=== PATIENT | male | born 1930 | race Caucasian/White ===

== ENCOUNTER 2016-12-19 19:24 | Inpatient (IN) ==
[2016-12-19] MEDS ORDERED: ASPIRIN PO STA (19:53)
[2016-12-19 20:12] LABS: BASO% 0.1 % (0.0-0.8); HEMATOCRIT 46.3 % (42.0-52.0); HEMOGLOBIN 15.5 g/dL (14.0-18.0); IMM GRAN# 0.02 X1000 (0.0-0.04); IMM GRAN% 0.2 % (0.0-0.5); LYMPH% 6.8 % (20.5-51.1); MANUAL DIFF NEEDED? NO; MCH 33.1 PG (27-31); MCHC 33.5 g/dL (33-37); MCV 98.9 FL (81-99); MONO# 0.62 X1000 (0.11-0.59); MPV 10.3 FL (7.4-10.4); NEUT% 85.9 % (42.2-75.2); PLT 134 X1000 (130-400); RBC 4.68 XMIL (4.7-6.1)
[2016-12-19 20:20] LABS: INR 1.14; PROTIME 12.1 Seconds (9.2-11.7); PTT 26.3 Seconds (22.0-36.0)
--- NOTE | 2016-12-19 20:27 | Diag Imaging Result Doc PS360 ---
EXAM: CHEST-2 VIEWS HISTORY: CP TECHNIQUE: AP and lateral chest COMMENT: There is COPD. There has been coronary artery bypass. There is no evidence of acute pulmonary disease in the appearance of the chest has not changed significantly since 06/07/2015. IMPRESSION: COPD. Electronically signed by Easton Da Silva 12/19/2016 8:25 PM
[2016-12-19 20:28] LABS: ALBUMIN 4.5 g/dL (3.5-5.0); CALCIUM 9.5 mg/dL (8.8-10.2); MAGNESIUM 2.4 mg/dL (1.5-2.7); POTASSIUM 4.4 mmol/L (3.5-5.1); TOTAL BILIRUBIN 0.97 mg/dL (0.20-1.00); TOTAL PROTEIN 7.8 g/dL (6.3-8.3)
[2016-12-19 20:47] LABS: CK INDEX 1.1 (0.0-2.5); CK-MB 14.71 ng/mL (0.0-5.0)
[2016-12-19] MEDS ORDERED: NS 1,000 ML IV ONE (21:07)
--- NOTE | 2016-12-19 21:07 | ED EKG INTERP ---
This chart was entered by Cristal Mejias Scribe, acting as scribe for Aníbal Morocho MD. EKG Interpretation - EKG Time of EKG reading by physician:: 19:48 EKG Read and Signed by:: Aníbal Morocho Rate: 61 Rhythm: NSR Comments: Abnormal ECG Attestation - Physician/ ELLIOTT Attestation Patient care was provided by Advanced Practice Provider:: No The physician spent face to face time with patient:: Yes Advanced Practice Provider documentation review:: Supervising physician onsite and consulted in the evaluation and care of this patient. The physician did have a face to face encounter with the patient. This chart was documented by the indicated scribe, (Cristal Mejias Scribe) and accurately reflects the services I performed and decisions made by me, Aníbal Morocho MD, as attested by the provider's signature.
--- NOTE | 2016-12-19 21:19 | Diag Imaging Result Doc PS360 ---
EXAM: CT HEAD W/O CONTRAST HISTORY: fall TECHNIQUE: CT of the head without contrast COMMENT: There is no evidence of mass effect, bleed, abnormal extra-axial fluid collection, or hydrocephalus. Compared to 02/13/2011 the appearance of the brain has not changed significantly. The visualized paranasal sinuses are clear. There is no evidence of acute bony abnormality. There is persistence the metopic suture. IMPRESSION: No evidence of acute intracranial disease. Electronically signed by Easton Da Silva 12/19/2016 9:17 PM
--- NOTE | 2016-12-19 21:56 | PROVIDER DOCUMENTATION ---
This chart was entered by Cristal Mejias Scribe, acting as scribe for Aníbal Morocho MD. HPI-Syncope/Dizziness - General Chief Complaint: Fall Stated Complaint: DIZZY/FALL Time Seen by Provider: 12/19/16 20:59 Source: patient Allergies/Adverse Reactions: Patient Allergies Allergy/AdvReac Type Severity Reaction Status Date / Time No Known Allergies Allergy Verified 12/19/16 20:49 Home Medications: Home Medication List Medication Instructions Recorded Confirmed Last Taken Type Apixaban [Eliquis] 2.5 mg PO BID #60 tablet 06/10/15 Unknown Rx - History of Present Illness-Syncope/Dizzy Nature of Presenting Problem: 86 Y/O M presents to ED with Fall. Pt has a hx of syncopal episodes as told by family. Pt was found by daughter this evening around 6pm. Pt was laying flat on back in bathroom, went to use the bathroom and was cleaning up states fell around 10am and was unable to get up. Pt daughter states that bathroom is handicap accessible, pt lives alone in an apt across from daughter. Daughter checks on pt daily. Skin tears noted to bilateral elbows. Pt states he is not in pain, states mild headache. Pt is thin, alert and able to answer questions. Family states confusion recently not out the ordinary. Prior Episodes: reports: recent history Onset/Duration: reports: this morning Position/Activity at time of episode: reports: standing Symptoms prior to episode: reports: none Context: reports: other (fell) Loss of Consciousness: no loss of consciousness Location of injury. (If syncope resulted in an injury.): reports: [facility] Current Symptoms: reports: headache (mild) Recently Seen Here or By Another Healthcare Provider: No Review of Systems - Adult - REVIEW OF SYSTEMS - ADULT Constitutional: denies: chills, fever Eyes: reports: no symptoms reported Ears, Nose, Mouth & Throat: reports: no symptoms reported Cardiovascular: reports: no symptoms reported Respiratory: denies: cough, shortness of breath Gastrointestinal: denies: abdominal pain, diarrhea, nausea, vomiting Genitourinary: reports: no symptoms reported Musculoskeletal: reports: no symptoms reported Integumentary: reports: no symptoms reported Neurological: reports: headache/migraines (mild), syncope Psychiatric: reports: no symptoms reported Endocrine: reports: no symptoms reported Hematologic/Lymphatic: reports: no symptoms reported Allergic/Immunologic: reports: no symptoms reported All Other Systems: Reviewed and Negative Past History - Adult - PAST MEDICAL HISTORY-ADULT Review of Records: reports: Old Records Reviewed, Nursing Assessment Review, Medications Reviewed, Social history reviewed & non-contributory. Cardiovascular: reports: CAD, hyperlipidemia Musculoskeletal: reports: denies history Neurological: reports: dementia - PRIOR SURGERIES/PROCEDURES Surgical/Procedure History: reports: appendectomy, CABG, other (ear implants) - IMMUNIZATION STATUS Childhood Immunizations: See Nurse Assessment Flu Vaccine: See Nurse Assessment - SOCIAL HISTORY Smoking: non-smoker Substance Use: none/never Alcohol Use Frequency: never Living Situation: alone Physical Exam-General - CONSTITUTIONAL General Appearance: alert, no apparent distress, thin - EYES Eyes: pink conjunctivae - HEAD, EARS, NOSE, MOUTH & THROAT HENMT: moist mucous membranes, TMs normal, pharynx normal - NECK Neck: full range of motion, supple - RESPIRATORY Respiratory: lungs clear, normal breath sounds - CARDIOVASCULAR Cardiovascular: bradycardia - GASTROINTESTINAL (ABDOMEN) Abdominal Exam: soft - LYMPHATIC Lymphatic: no adenopathy - MUSCULOSKELETAL Back Exam: other (redness noted to back) Extremity: other (abrasians to bilateral elbows) - SKIN Integumentary: normal turgor - NEUROLOGIC Neurologic: grossly normal, no motor/sensory deficits. negative: facial droop, focal weakness, motor weakness, sensory deficit - PSYCHIATRIC Psych/Mental Status: normal mood/affect, normal thought content, normal thought process, oriented x 3 Progress - PLAN OF CARE/RESULTS Progress/Plan/Lab Results: Vital Signs - 8 hr 12/19/16 19:48 Temperature 97.3 F L Pulse Rate 71 Respiratory Rate 20 Blood Pressure 129/79 O2 Sat by Pulse Oximetry 99 Laboratory Results - last 24 hr 12/19/16 12/19/16 12/19/16 19:41 19:57 19:57 WBC 8.84 RBC 4.68 L Hgb 15.5 Hct 46.3 MCV 98.9 MCH 33.1 H MCHC 33.5 RDW Std Deviation 12.9 Plt Count 134 MPV 10.3 Immature Gran % (Auto) 0.2 Neut % (Auto) 85.9 H Lymph % (Auto) 6.8 L [place] % (Auto) 7.0 Eos % (Auto) 0.0 Baso % (Auto) 0.1 Immature Gran # (Auto) 0.02 Neut # (Auto) 7.59 H Lymph # (Auto) 0.60 L [place] # (Auto) 0.62 H Eos # (Auto) 0.00 Baso # (Auto) 0.01 PT INR PTT (Actin FS) D-Dimer Sodium 144 Potassium 4.4 Chloride 101 Carbon Dioxide 28 Anion Gap 15 BUN 39 H Creatinine 1.6 H Estimated GFR/1.73 m2 41 BUN/Creatinine Ratio 24 Glucose 103 POC Glucose 99 Calculated Osmolality 296 Calcium 9.5 Magnesium 2.4 Total Bilirubin 0.97 AST 38 H ALT 19 Alkaline Phosphatase 51 Creatine Kinase 1331 H Creatine Kinase Index 1.1 CK-MB (CK-2) 14.71 H Troponin T Fld-G-Xicrdlwgmwk Pept Total Protein 7.8 Albumin 4.5 Globulin 3.3 Albumin/Globulin Ratio 1.4 12/19/16 12/19/16 12/19/16 19:57 19:57 19:57 WBC RBC Hgb Hct MCV MCH MCHC RDW Std Deviation Plt Count MPV Immature Gran % (Auto) Neut % (Auto) Lymph % (Auto) [place] % (Auto) Eos % (Auto) Baso % (Auto) Immature Gran # (Auto) Neut # (Auto) Lymph # (Auto) [place] # (Auto) Eos # (Auto) Baso # (Auto) PT 12.1 H INR 1.14 PTT (Actin FS) 26.3 D-Dimer 1.34 H Sodium Potassium Chloride Carbon Dioxide Anion Gap BUN Creatinine Estimated GFR/1.73 m2 BUN/Creatinine Ratio Glucose POC Glucose Calculated Osmolality Calcium Magnesium Total Bilirubin AST ALT Alkaline Phosphatase Creatine Kinase Creatine Kinase Index CK-MB (CK-2) Troponin T Bbc-D-Qifqssyzwdu Pept 641 H Total Protein Albumin Globulin Albumin/Globulin Ratio 12/19/16 19:57 WBC RBC Hgb Hct MCV MCH MCHC RDW Std Deviation Plt Count MPV Immature Gran % (Auto) Neut % (Auto) Lymph % (Auto) [place] % (Auto) Eos % (Auto) Baso % (Auto) Immature Gran # (Auto) Neut # (Auto) Lymph # (Auto) [place] # (Auto) Eos # (Auto) Baso # (Auto) PT INR PTT (Actin FS) D-Dimer Sodium Potassium Chloride Carbon Dioxide Anion Gap BUN Creatinine Estimated GFR/1.73 m2 BUN/Creatinine Ratio Glucose POC Glucose Calculated Osmolality Calcium Magnesium Total Bilirubin AST ALT Alkaline Phosphatase Creatine Kinase Creatine Kinase Index CK-MB (CK-2) Troponin T 0.015 Csb-W-Fikrtzyvgaa Pept Total Protein Albumin Globulin Albumin/Globulin Ratio Orders Category Date Time Status Cardiac Monitoring DIRECTED Care 12/19/16 19:54 Active Oxygen Therapy- ED Nursing DIRECTED Care 12/19/16 19:54 Hold Saline Loc NOW Care 12/19/16 19:54 Active CHEST-2 VIEWS [RAD] Stat Exams 12/19/16 19:[address] HEAD W/O CONTRAST [CT] Stat Exams 12/19/16 21:00 Completed CBC WITH ELECTRONIC DIFF [HEME] Stat Lab 12/19/16 19:57 Completed CK PROFILE [SP CHEM] Stat Lab 12/19/16 19:57 Completed COMPREHENSIVE METABOLIC PANEL [CHEM] Stat Lab 12/19/16 19:57 Completed D-DIMER [CHEM] Stat Lab 12/19/16 19:57 Completed MAGNESIUM [CHEM] Stat Lab 12/19/16 19:57 Completed PRO B-NATRIURETIC PEPTIDE Stat Lab 12/19/16 19:57 Completed PROTIME WITH INR [COAG] Stat Lab 12/19/16 19:57 Completed PTT [COAG] Stat Lab 12/19/16 19:57 Completed TROPONIN T Stat Lab 12/19/16 19:57 Completed 0.9% Sodium Chloride Inj [Ns] 1,000 ml Med 12/19/16 21:07 Active IV 999 mls/hr Aspirin Med 12/19/16 19:53 Discontinued 325 mg PO STAT STA EKG [EKG] Stat Ther 12/19/16 19:54 Ordered Result Diagrams: 12/19/16 19:57 12/19/16 19:57 - XRAY 1 XRAY Study: Chest Impression: Abnormal XRAY Interpretation: COPD - CT/MRI 1 CT Study: Head Impression: Normal CT Results: No evidence of acute intracrancial disease - CONSULTS/PCP/HOSPITALIST Notification #1 *Consult/PCP/Hospitalist*: Time Discussed: 21:50 Reason/Comments: Admittance Consult Disposition: Admit (Admit Accepted) Departure - Departure Date of Disposition Decision: 12/19/16 Time of Disposition Decision: 21:55 DIAGNOSIS: Bradycardia Dementia Qualifiers: Dementia type: unspecified type Dementia behavioral disturbance: without behavioral disturbance Qualified Code(s): F03.90 - Unspecified dementia without behavioral disturbance Syncope Qualifiers: Syncope type: unspecified Qualified Code(s): R55 - Syncope and collapse Disposition: ADMITTED INPATIENT 09 Certified Medical Emergency: Emergent Condition: Fair Referrals and Follow-Ups: Glenn Blanco [Primary Care Provider] - - Critical Care Note This patient required my direct & personal management of CC.: No Attestation - Physician/ ELLIOTT Attestation Patient care was provided by Advanced Practice Provider:: No The physician spent face to face time with patient:: Yes Advanced Practice Provider documentation review:: Supervising physician onsite and consulted in the evaluation and care of this patient. The physician did have a face to face encounter with the patient. This chart was documented by the indicated scribe, (Cristal Mejias Scribe) and accurately reflects the services I performed and decisions made by me, Aníbal Morocho MD, as attested by the provider's signature.
[2016-12-19] MEDS ORDERED: TYLENOL PO ONE (22:00)
--- NOTE | 2016-12-20 00:41 | HISTORY AND PHYSICAL ---
CHIEF COMPLAINT: Fall, dizziness. HISTORY OF PRESENT ILLNESS: This is an 86-year-old male with CAD, status post CABG, who has dementia. It is kind of unclear exactly how severe it is, but I think it is fairly significant. He was found today by his daughter, who is his primary caregiver, around 6 p.m. He could not get back up. He fell around 10 a.m. He denies any prodrome preceding symptoms. No chest pain, palpitations, but I do not get a clear sense he really understands or remembers the event. I think his dementia may be at least moderate. Per the daughter, he has been getting weaker and weaker over the last several months. He has also lost a significant amount await, at least above 10 pounds in the last 6 months and possibly more. He does not eat and drink very well unless he is at family events but he does not really spontaneously eat and drink very well. No other monica symptoms. He has had a CABG but I want to say it is fairly remote. He does not see a director erp anymore. When he was here in May last year, I think he had atrial fibrillation with rapid ventricular response. He actually was tachycardic. This time, he is bradycardic and he developed it looks like A-flutter with a variable block. This time he is actually fairly slow and, again, he is very dizzy when he gets up and looks around. The patient was up placed in observation for symptomatic bradycardia. PAST MEDICAL HISTORY: 1. CAD, status post CABG. 2. Hyperlipidemia. 3. Bladder incontinence issue. 4. Dementia, not otherwise specified. PAST SURGICAL HISTORY: 1. He had CABG, again it was 20 years ago. 2. Appendectomy. 3. Cataract repair. 4. Ear implants. SOCIAL HISTORY: No current tobacco, and I think it has been a long time since last tobacco use. No alcohol. He lives with family. Daughter is his primary caregiver. He is retired from the or from the [employer]. ALLERGIES: Reports no known drug allergies. MEDICATIONS: He is just on oxybutynin 10 daily and Zocor 20 daily. FAMILY HISTORY: Mother, brother, father all had CAD but not at early ages. No other arrhythmias. No cancer. REVIEW OF SYSTEMS: Otherwise negative times a 10 point review of systems. All other systems reviewed. PHYSICAL EXAMINATION: VITAL SIGNS: Blood pressure 129/79, heart rate of 71 is recorded but he dipped down into the 40s while I was in the room doing the examination, respiratory rate of 20, temperature 97.3 degrees, 99% on room air. GENERAL: He is a thin, I would say even cachectic male in no acute distress. HEAD: Normocephalic, atraumatic. EYES: Pupils equal, round, reactive to light. Extraocular movements were intact. EAR/NOSE/THROAT: He had moist mucous membranes. NECK: Supple. CARDIOVASCULAR: Regular rate and rhythm. No murmurs, gallops, or rubs. PULMONARY: Exam with bilateral breath sounds. Clear to auscultation. GASTROINTESTINAL: Soft, nontender, nondistended. Bowel sounds are positive. EXTREMITIES: No clubbing or cyanosis. LYMPHATIC: No peripheral edema. NEUROLOGICAL: Exam was nonfocal. SKIN: He was cachectic. He had bitemporal wasting. He had chronic venous changes noted on his lower extremities. LABORATORY DATA: Creatinine is 1.6 which is up from baseline. In May it was around 1.1, 1.3. CPK of 1331, MB is elevated, index is low, troponin was normal. ProBNP was mildly elevated. Hemoglobin and hematocrit 15 and 46. Coagulation was normal. D-dimer was elevated at 1.34. PROBLEM LIST: This is an 86-year-old male presenting with symptomatic bradycardia which looks to be a primary arrhythmia because I do not think he is on any medications that could cause issues. Oxybutynin typically looks like causes tachycardia. 1. Bradycardia. He may have a primary bradycardia or a sick sinus syndrome since he had an A- flutter history. We will of admit him for observation or place him in observation. Get Cardiology consult. Do serial cardiac enzymes. Monitor on telemetry. Get echocardiogram and follow. I have discussed with family about the possibility of a pacemaker if he does not improve and he has symptomatic bradycardia and they are considering evaluating for that. 2. Acute kidney injury. We will continue gentle hydration. Obtain ultrasound, check urine electrolytes and repeat chemistries. 3. Cachexia, weight loss. May be related to progressive dementia. We will do a basic workup including abdominal ultrasound. 4. Elevated D-dimer. Patient was on the floor for an extended period of time. I think that is what is related to it. We will progress with V/Q scan to evaluate for PE. I think that is unlikely. I am not quite sure why a D-dimer was analyzed. He does not have chest pain but I guess he did have syncope. We will need to continue to follow closely. Again, I think without hypoxia that it is very unlikely to be any process involving a pulmonary embolus. I think that is a low risk process. DISPOSITION: Pending workup. We will get PT to evaluate and follow from there. cc: Saad Cespedes MD
[2016-12-20] MEDS ORDERED: ZOFRAN IV PRN (01:46)
[2016-12-20] MEDS ORDERED: NS 1,000 ML IV ONE (01:46)
[2016-12-20] MEDS ORDERED: TYLENOL PO PRN (01:46)
[2016-12-20 03:07] LABS: CK INDEX 0.8 (0.0-2.5); CK-MB 13.62 ng/mL (0.0-5.0)
[2016-12-20 06:20] LABS: MANUAL DIFF NEEDED? NO
--- NOTE | 2016-12-20 06:25 | EKG Report ---
Test Performed on : 12/19/2016 7:48:06 PM Test Reason : Chest Pain Blood Pressure : / mmHG Vent. Rate : 061 BPM Atrial Rate : 061 BPM P-R Int : 140 ms QRS Dur : 080 ms QT Int : 440 ms P-R-T Axes : 090 066 040 degrees QTc Int : 442 ms Normal sinus rhythm. Septal infarct , age undetermined Abnormal ECG When compared with ECG of 09-JUN-2015 12:17, CO interval has decreased Septal infarct is now present Nonspecific T wave abnormality now evident in Inferior leads Nonspecific T wave abnormality now evident in Anterior leads Unconfirmed Result
[2016-12-20 06:26] LABS: BASO% 0.2 % (0.0-0.8); HEMATOCRIT 39.8 % (42.0-52.0); HEMOGLOBIN 12.8 g/dL (14.0-18.0); IMM GRAN# 0.01 X1000 (0.0-0.04); IMM GRAN% 0.2 % (0.0-0.5); LYMPH# 0.96 X1000 (1.2-3.4); LYMPH% 16.3 % (20.5-51.1); MCH 32.1 PG (27-31); MCHC 32.2 g/dL (33-37); MCV 99.7 FL (81-99); MONO# 0.59 X1000 (0.11-0.59); MPV 10.5 FL (7.4-10.4); NEUT% 73.3 % (42.2-75.2); PLT 119 X1000 (130-400); RBC 3.99 XMIL (4.7-6.1)
[2016-12-20 06:46] LABS: ALBUMIN 3.5 g/dL (3.5-5.0); CALCIUM 8.4 mg/dL (8.8-10.2); POTASSIUM 4.3 mmol/L (3.5-5.1); TOTAL BILIRUBIN 0.7 mg/dL (0.20-1.00); TOTAL PROTEIN 5.6 g/dL (6.3-8.3)
[2016-12-20 07:19] LABS: CK INDEX 0.8 (0.0-2.5); CK-MB 13.05 ng/mL (0.0-5.0)
[2016-12-20 11:11] LABS: CK INDEX 0.7 (0.0-2.5); CK-MB 12.66 ng/mL (0.0-5.0)
--- NOTE | 2016-12-20 12:23 | Diag Imaging Result Doc PS360 ---
EXAM: LUNG SCAN / VQ HISTORY: elevated d dimer, syncope TECHNIQUE: Ventilation/perfusion lung scan; 5.3 mCi of technetium 99m MAA for perfusion, the 26.5 mCi of technetium 99m DTPA aerosol for the ventilation portion. COMMENT: There is no evidence of ventilation/perfusion mismatch. There is an apparent matched defect laterally in the left lung, probably in the upper lobe. This may be due to COPD. This would be consistent with the appearance on the chest radiograph of 12/19/2016. IMPRESSION: Low probability for pulmonary embolus. Electronically signed by Easton Da Silva 12/20/2016 12:20 PM
--- NOTE | 2016-12-20 12:42 | CONSULTATION ---
DATE OF CONSULTATION: 12/20/2016 INDICATION: Fall, bradycardia. HISTORY OF PRESENT ILLNESS: Mr. Zuniga is an 86-year-old male with a history of coronary bypass. He apparently has a significant level of dementia and suffered a fall. He lives close to family, and they found him apparently in the bathroom. It is unclear exactly the etiology of his fall. The patient has a significant level of dementia and is not able to add much as far as the history. He had some issues with bradycardia overnight with heart rates quite often in the 30s to 50s. I did not see any telemetry evidence of significant high degree AV block. Presently, the patient is not complaining of any complaints such as chest pain or shortness of breath. PAST MEDICAL HISTORY: 1. Significant for coronary disease with history of bypass a number of years ago. 2. Hyperlipidemia. 3. Incontinence. 4. A significant level of dementia. SOCIAL HISTORY: No current tobacco. No alcohol. He lives in an apartment very close to his family. FAMILY HISTORY: Mother, brother, and father all had coronary artery disease but apparently not early. REVIEW OF SYSTEMS: A 10-system review of systems is negative; however, the patient is a very poor historian. PHYSICAL EXAMINATION: He is afebrile. His heart rates have been anywhere from the 30s to the 70s. His blood pressure is 101/70.Generally: He is in no acute distress. HEENT: Oropharynx is moist. Poor dentition. Eye examination is pink conjunctivae. White sclerae. Neck: Examination shows no obvious thyromegaly or thyroid tenderness. Cardiovascular: He is in a regular rhythm. He has a bradycardic rate. He has no obvious murmurs. He has no S3. No lower extremity edema. Chest: Clear bilaterally. No increased work of breathing. Abdomen: Soft, nontender, nondistended. He has no obvious organomegaly. Skin Exam: Warm and dry throughout any rashes. Neurological: He seems to be moving all extremities well. No obvious lateralizing deficits. PERTINENT DATA: His EKG shows sinus rhythm. Rate noted to be 61 beats per minute. No signs of high degree AV block. His telemetry overnight shows heart rates in the 40s. These are all supply manager hours such as 1:42 a.m. and 3:06 a.m. His laboratory data shows a white count of 5.9, hematocrit 39.8, platelet count of 119,000. His sodium is 143, potassium 4.3, BUN 32, creatinine 1.2; on admission, it was 39 and 1.6. His CK was 1331 on arrival with a CK of 1893. His MB fraction was 12.6 with an index of 0.7. Cardiac enzymes negative, and this may indicate a small amount rhabdo. His proBNP is 641. His head CT was reviewed and showed no evidence of any acute disease. His chest x-ray showed evidence for COPD. ASSESSMENT: 1. Relative bradycardia. 2. Fall. PLAN: The patient has had a relative bradycardia that seems to be occurring most often when he is laying down at night sleeping or calm in bed. Presently, there is no clear indication that his fall was secondary to bradycardia or any clear indication that he has symptomatic bradycardia. I would recommend monitoring him for another 24 hours. Echocardiogram is currently pending. If this is an unremarkable monitoring, then he may be discharged home with a home heart rate monitor. Considering his advanced level of dementia, I have urged the family to have discussions regarding goals of care with him and whether they would even consider an invasive treatment such as a pacemaker. He is not on any atrioventricular shyam blocking agents. cc: Nish Mckeon MD
--- NOTE | 2016-12-20 13:48 | Diag Imaging Result Doc PS360 ---
EXAM: US ABDOMEN-COMPLETE HISTORY: aj TECHNIQUE: Abdominal ultrasound COMMENT: There is a hypoechoic lesion present in the midline sternotomy scar with shadowing. This may represent inflammatory reaction to a sternotomy wire. There are number of fairly prominent sternotomy wires seen anterior to the sternum on the CT examination of 06/07/2015. The visualized portions of the aorta and inferior vena cava are within normal limits. The pancreas is slightly inhomogeneous without discrete abnormality. The liver is unremarkable in appearance. There is antegrade flow in the portal vein. The common bile duct measures 4 mm. The gallbladder is clear and nontender. The spleen is not enlarged. The kidneys are without evidence of hydronephrosis or mass. No abnormal fluid collections are present. IMPRESSION: Subcutaneous nodule in the area of the sternotomy as described. Inhomogeneity of the pancreas may indicate pancreatitis, however this is nonspecific. Advise correlation with laboratory findings and history. Electronically signed by Easton Da Silva 12/20/2016 1:46 PM
--- NOTE | 2016-12-20 18:49 | ECHO REPORT ---
ORDER DATE: 12/20/2016 INTERPRETING PHYSICIAN: Dr. Weber REQUESTING PHYSICIAN: Dr. Cespedes CLINICAL INDICATIONS: Bradycardia in an 86-year-old male. M-MODE MEASUREMENTS: Right ventricle: 2.7 cm. Left ventricle end diastole: 4.1 cm. Left ventricle end systole: 3.3 cm. Posterior wall: 0.8 cm. Interventricular septum: 0.8 cm. Left atrium: 3.9 cm. Aortic root: 3.6 cm. SUMMARY OF 2-DIMENSIONAL IMAGING: The left ventricular function appears to be normal. Ejection fraction estimated at 63%. His ventricular volumes are normal. There is no wall motion abnormality. The right ventricle appears to be normal. The left atrium is probably mildly enlarged. The aortic valve shows a mild degree of thickening of the cusps. Color flow mapping reveals a mild degree of regurgitation. There is no aortic stenosis. The mitral valve shows some thickening especially of the posterior leaflet with a very trivial degree of prolapse. Color flow mapping shows a very mild degree of regurgitation. Pulse wave Doppler of mitral inflow shows "normal" E/A ratio. Tissue Doppler of septal and lateral mitral annulus averages 7 cm per second. Diastolic function appears to be normal based on this Doppler pattern. The tricuspid valve shows a [id number]-[id number]-mhtuxaia degree of regurgitation. The inferior vena cava was not well visualized. Pulmonary pressure is probably somewhere in the range of 25-30 mmHg. The pulmonic valve appears to be grossly normal. There is no pericardial effusion, masses or thrombus. IMPRESSION: In summary, this study shows: 1. Normal left ventricular systolic function. 2. Mild degree of tricuspid regurgitation with probably normal pulmonary pressure in the order of 25-30 mmHg. 3. Redundant posterior leaflet of mitral valve, probably mild degree of mitral valve prolapse and mild degree of mitral regurgitation. 4. No diastolic function. The patient was in sinus bradycardia during this study. 5. Mild degree of aortic regurgitation was noted. Clinical correlation recommended. cc: MD Saad Eugene MD
[2016-12-20] MEDS: NS 1,000 ML IV SCH (20:00)
--- NOTE | 2016-12-20 20:15 | PROGRESS NOTE ---
DATE: 12/20/2016 Patient was seen and examined. Still having bradycardia. He is awake. He is in no distress. We will ask cardiology for involvement. cc: Parvez Louis MD
[2016-12-20 20:16] LABS: UR CREAT RANDOM 132.6 mg/dL (14-26); UR PROT RANDOM 12.8 mg/dL
[2016-12-20 20:17] LABS: BILIRUBIN URINE NEGATIVE (NEGATIVE); BLOOD URINE 4+ (NEGATIVE); CLARITY CLEAR (CLEAR); COLOR YELLOW; LEUKOCYTES URINE NEGATIVE (NEGATIVE); NITRITE URINE NEGATIVE (NEGATIVE); PROTEIN URINE TRACE mg/dL (NEGATIVE); UROBILINOGEN URINE NORMAL
[2016-12-20 20:21] LABS: URINE CAST NONE SEEN /LPF; URINE CRYSTAL URIC ACID PRESENT /HPF; URINE CULTURE PL NEEDED? YES; URINE EPITHELIAL CELLS <10 /HPF (<10); URINE SOURCE CLEAN CATCH; URINE WBC <10 /HPF (<10)
[2016-12-20] MEDS: ZOCOR PO SCH (20:49)
[2016-12-20] MEDS: SODIUM BICARBONATE PO SCH (20:50)
[2016-12-21] MEDS: NS 1,000 ML IV SCH ×2 (05:14→15:02)
[2016-12-21 06:32] LABS: HEMATOCRIT 38.1 % (42.0-52.0); HEMOGLOBIN 12.3 g/dL (14.0-18.0); MCH 32.5 PG (27-31); MCHC 32.3 g/dL (33-37); MCV 100.8 FL (81-99); RBC 3.78 XMIL (4.7-6.1)
[2016-12-21 07:04] LABS: AGAP 5; ALBUMIN 2.8 g/dL (3.5-5.0); ALKALINE PHOSPHATASE 41 U/L (32-122); BUN 27 mg/dL (8-22); CALCIUM 7.7 mg/dL (8.8-10.2); CHLORIDE 108 mmol/L (98-107); COSMO 286; GOT 43 U/L (10-34); GPT 20 U/L (10-44); POTASSIUM 3.8 mmol/L (3.5-5.1); SODIUM 141 mmol/L (136-145); TCO2 29 mmol/L (25-35)
[2016-12-21] MEDS: SODIUM BICARBONATE PO SCH ×2 (10:33→22:03)
[2016-12-21] MEDS: ZOCOR PO SCH (22:03)
[2016-12-22] MEDS: NS 1,000 ML IV SCH (01:05)
[2016-12-22] MEDS: SODIUM BICARBONATE PO SCH ×2 (09:16→22:02)
--- NOTE | 2016-12-22 09:26 | PROGRESS NOTE ---
DATE: 12/21/2016 SUBJECTIVE: Patient without any new complaints. OBJECTIVE: Vital Signs: Reviewed. He is still bradycardic with heart rates in the 40s, occasionally in the low 50s. Respiratory 20. General: Patient is awake, alert. Frail appearing, elderly male who is lying in the bed. HEENT: Normocephalic, atraumatic. PERRL. Neck: Supple. Cardiovascular: Bradycardic. Chest: Clear. Abdomen: Soft. ASSESSMENT: 1. Sinus bradycardia. 2. Adult failure to thrive. 3. Frequent falls. PLAN: We will continue patient in the hospital and observe over the weekend on the floor. We will get physical therapy. Patient certainly may require a pacemaker if his bradycardia is negatively affecting him. At this point, not sure if that's the case, will continue. cc: Parvez Louis MD
[2016-12-22 10:08] LABS: HEMATOCRIT 46.7 % (42.0-52.0); HEMOGLOBIN 15.4 g/dL (14.0-18.0); MCH 32.9 PG (27-31); MCV 99.8 FL (81-99); MPV 10.6 FL (7.4-10.4); RBC 4.68 XMIL (4.7-6.1)
[2016-12-22 10:11] LABS: AGAP 7; ALBUMIN 3.1 g/dL (3.5-5.0); ALKALINE PHOSPHATASE 53 U/L (32-122); BUN 23 mg/dL (8-22); CHLORIDE 104 mmol/L (98-107); COSMO 285; GOT 39 U/L (10-34); GPT 22 U/L (10-44); POTASSIUM 4.1 mmol/L (3.5-5.1); SODIUM 140 mmol/L (136-145); TCO2 29 mmol/L (25-35)
[2016-12-22 10:53] LABS: CK INDEX 0.8 (0.0-2.5); CK-MB 4.91 ng/mL (0.0-5.0)
--- NOTE | 2016-12-22 14:41 | PROGRESS NOTE ---
DATE: 12/22/2016 SUBJECTIVE: Patient without any new complaints. He has family sitting in room. Notes that he is back to his usual baseline. He is eating and drinking okay. He is having no fevers, chills. Denies any palpitations. He has not been out of bed yet. OBJECTIVE: Vital Signs: Reviewed. He is afebrile. Blood pressure is stable. Heart rate 45- 55. Blood pressures range from mid 90s to low 110 systolic. General: Patient is awake, alert. He is currently in no respiratory distress. Memory appears to be his baseline. Neck: Supple. CV: Bradycardia. No murmurs. Chest: Clear. Abdomen: Soft. Extremities: Moves all extremities. Neurologic: No apparent focal changes. He is quite hard of hearing but does respond appropriately when he hears the questions. ASSESSMENT: 1. Bradycardia. 2. Frequent falls. 3. Acute kidney injury secondary to dehydration. 4. Chronic weight loss. 5. Known peripheral vascular disease. PLAN: Will watch patient today in the hospital with physical therapy, telemetry. Will attempt to get out of bed and see if indeed his heart rate appears to be affecting his physical stamina. Should this be the case he certainly will need to reconsult Cardiology and consider a pacemaker. Further orders as needed. cc: Parvez Louis MD
[2016-12-22] MEDS: ZOCOR PO SCH (22:03)
[2016-12-23] MEDS: SODIUM BICARBONATE PO SCH ×2 (10:45→21:20)
--- NOTE | 2016-12-23 19:59 | PROGRESS NOTE ---
DATE: 12/23/2016 SUBJECTIVE: Patient without any new complaints. He states that he wants to go home, although his friend is in the room and states he is still very tired and not back to his usual status. States that he had difficulty getting out of bed and he still requires help. OBJECTIVE: Vital Signs: Reviewed. Pulse 40s to 45, BP 96 over 53-105 systolic, temp 92 degrees, respiratory rate 18. General: Patient is awake, alert. He is currently in no respiratory distress. He appears oriented to time, person, and place. HEENT: Normocephalic, atraumatic. JAYLYN. Neck: Supple. CV: Bradycardia but sinus rhythm. Chest: Clear and unlabored. Abdomen: Soft. Extremities: Moves all extremities. Neurologic: No changes. ASSESSMENT: 1. Sinus bradycardia. 2. Frequent falls. 3. Known coronary artery disease. 4. Hyperlipidemia. PLAN: Patient unfortunately lives at home alone. Certainly do not feel as though he is safe to go home by himself at the present time. We will continue physical therapy. Mr. Zuniga does not want rehab, although this may not be an option. He does not have family they can stay with him. His rhabdomyolysis has resolved. We will continue to follow. Continue to follow his cachexia and poor weight gain as well. cc: Parvez Louis MD
[2016-12-23] MEDS: ZOCOR PO SCH (21:20)
--- NOTE | 2016-12-24 20:10 | PROGRESS NOTE ---
DATE: 12/24/2016 SUBJECTIVE: Patient without any new complaints. He is a little confused this morning. OBJECTIVE: Vital Signs: Reviewed. Pulse 48 to 60. Temperature 98 degrees, blood pressure 138/78. General: Patient is awake, alert. He is a little confused this morning. He is disoriented. He thinks that he is waiting on the person who owns the place to come talk to him about possibly checking out. HEENT: Normocephalic. Neck: Supple. CARDIOVASCULAR: Bradycardia. Regular rhythm. Chest: Clear, nonlabored. Abdomen: Soft. Extremities: Moves all extremities. Neurologic: No changes. DIAGNOSTIC DATA: Pending. ASSESSMENT: 1. Bradycardia. 2. Adult failure to thrive. 3. Frequent falls. 4. Acute kidney injury. 5. Chronic cachexia. PLAN: Hopefully patient can transition to rehab soon. We will continue to follow. He certainly may need a pacemaker. He will need to follow up with Electrophysiology as an outpatient. cc: Parvez Louis MD
[2016-12-24] MEDS: ZOCOR PO SCH (20:45)
--- NOTE | 2016-12-25 15:20 | DISCHARGE SUMMARY ---
ADMISSION DATE: 12/20/2016 DISCHARGE DATE: 12/25/2016 PRIMARY CARE PHYSICIAN: Dr. Blanco. ADMISSION DIAGNOSES: 1. Bradycardia. 2. Acute kidney injury. 3. Cachexia with weight loss may be related to progressive dementia. 4. Elevated D-dimer. DISCHARGE DIAGNOSES: 1. Bradycardia, resolved. 2. An adult failure to thrive. 3. Acute kidney injury, resolved. 4. Chronic cachexia. SUMMARY OF FINDINGS: This is an 86-year-old male who presented to the emergency room after he was found by his daughter who is his primary caregiver and could not get him up out of the floor. He apparently had fallen around 10 a.m. that morning and by the time she found him it was around 6 p.m. His dementia is at least moderate and we could not get a clear understanding if he remembered the event or not but per the daughter he had been becoming weaker and weaker over the last several months, has lost a significant amount of weight around 10 pounds in the last 6 months and possibly more, has not been eating or drinking very well. He was tachycardic during an atrial fibrillation with RVR response back in May but at this time it appears that he is bradycardic and developed what looked like an atrial flutter with a variable block with a slow response. He was very dizzy when he got up so he was admitted for further evaluation and treatment. We obtained an abdomen ultrasound on 12/20/2016 that showed a subcutaneous nodule in the area of the sternotomy as described. A CT of the head was obtained on 12/19/2016 that showed no evidence of an acute intracranial disease. A chest x-ray that showed COPD. An echocardiogram on 12/20/2016 showed an estimated ejection fraction of 63%, normal left ventricular systolic function, no diastolic dysfunction. It was noted that the patient was in sinus bradycardia during the study. A lung V/Q scan was obtained that showed a low probability of a pulmonary embolus. Cardiology was consulted and stated that they could not find any clear indication for his bradycardia, felt that he may need a home heart rate monitor at discharge if it did not improve. It is noted that for greater than 24 hours he had been in normal sinus rhythm in the 60s and 70s. His kidney function has returned to normal and it is felt that he can safely be discharged to rehab today. DISCHARGE MEDICATIONS: He will continue Zocor 20 mg p.o. at bedtime, Tylenol 650 mg p.o. q.6 hours p.r.n. and Ditropan XL 10 mg p.o. daily. FOLLOWUP: He will follow up with his primary care physician after his completion of his rehab stay. All discharge instructions have been reviewed and he verbalizes understanding. TIME SPENT: 35 minutes. Dictated by DAVIDA Garrett for Saad Cespedes MD cc: MD Saad Westfall MD pt examined, agree with above, face to face, doing well, has loud systolic murmur , stable for discharge will need evaluation for pacemaker, per family's decision APENOT MTDD
[2016-12-25 17:33] VITALS: BP 131/70
== END 2016-12-25 17:40 ==
LOC: P.ICU 19:24 → ED 19:24 → SUATTDRO 12-20 00:11 → P.ICU 12-20 00:55 → SUATTDRO 12-20 13:25 → SURHOLD 12-21 12:55 → P.MEDSURG 12-21 12:55
PROVIDERS: ATTEND Internal Medicine

== ENCOUNTER 2018-07-12 13:41 | Inpatient (IN) ==
[2018-07-12 15:51] LABS: BASO# 0.02 X1000 (0.0-0.2); BASO% 0.1 % (0.0-0.8); HEMATOCRIT 44.1 % (42.0-52.0); IMM GRAN# 0.07 X1000 (0.0-0.04); IMM GRAN% 0.3 % (0.0-0.5); LYMPH# 0.99 X1000 (1.2-3.4); LYMPH% 4.2 % (20.5-51.1); MCH 30.8 PG (27-31); MCHC 31.7 g/dL (33-37); MCV 97.1 FL (81-99); MONO# 1.36 X1000 (0.11-0.59); MONO% 5.8 % (1.7-9.3); MPV 10.2 FL (7.4-10.4); NEUT# 20.87 X1000 (1.4-6.5); NEUT% 89.6 % (42.2-75.2); PLT 196 X1000 (130-400); RBC 4.54 XMIL (4.7-6.1); RDW 13.8 % (11.5-14.5); WBC 23.31 X1000 (4.8-10.8)
[2018-07-12 16:09] LABS: ALB/GLOB RATIO 1.3; ALBUMIN 3.5 g/dL (3.5-5.0); CALCIUM 8.8 mg/dL (8.8-10.2); CREATININE 1.6 mg/dL (0.7-1.2); POTASSIUM 3.8 mmol/L (3.5-5.1); TOTAL BILIRUBIN 1.47 mg/dL (0.20-1.00); TOTAL PROTEIN 6.3 g/dL (6.3-8.3)
[2018-07-12 16:54] LABS: URINE SOURCE CATH
[2018-07-12 17:08] LABS: BILIRUBIN URINE NEGATIVE (NEGATIVE); BLOOD URINE LARGE (NEGATIVE); COLOR ORANGE; GLUCOSE URINE NEGATIVE (NEGATIVE); KETONE URINE NEGATIVE (NEGATIVE); LEUKOCYTES URINE MODERATE (NEGATIVE); NITRITE URINE POSITIVE (NEGATIVE); PROTEIN URINE TRACE mg/dL (NEGATIVE); SP GRAVITY URINE 1.004; TURBIDITY URINE HAZY (CLEAR); UROBILINOGEN URINE NORMAL (NORMAL)
[2018-07-12 17:09] LABS: UR EPITHELIAL CELLS <10 /HPF (<10); URINE BACTERIA 4+ /HPF; URINE RBC <10 /HPF (<10); URINE WBC TNTC /HPF (<10)
--- NOTE | 2018-07-12 18:53 | PROVIDER DOCUMENTATION ---
This chart was entered by Lucila Mancuso Scribe, acting as scribe for Winter Servin MD. HPI-General Adult - General Chief Complaint: Fever Stated Complaint: fever Time Seen by Provider: 07/12/18 14:44 Source: patient Allergies/Adverse Reactions: Patient Allergies Allergy/AdvReac Type Severity Reaction Status Date / Time No Known Allergies Allergy Verified 05/07/18 06:50 Home Medications: Home Medication List Medication Instructions Recorded Confirmed Last Taken Type Acetaminophen [Mapap] 325 mg PO 4XDAY 05/07/18 07/09/18 Unknown History Apixaban [Eliquis] 5 mg PO BID 05/07/18 07/09/18 05/06/18 20:00 History Bacillus Coagulans [Digestive 1 each PO TID 05/07/18 07/09/18 Unknown History Advantage] Calcium Carbonate/Vitamin D3 1 each PO QAM 05/07/18 07/09/18 05/06/18 08:00 History [Caltrate 600 + D Soft Chew Tab] Docusate Sodium [Colace] 100 mg PO QAM 05/07/18 07/09/18 05/06/18 09:00 History Furosemide 20 mg PO DAILY 05/07/18 07/09/18 Unknown History Menthol/Zinc Oxide Ointment 1 each TOP TID 05/07/18 07/09/18 Unknown History [Calmoseptine Ointment] Metoprolol Succinate E.r. [Toprol 25 mg PO QAM 05/07/18 07/09/18 05/06/18 08:00 History Xl] Nystatin 1 each TOP BID 05/07/18 07/09/18 Unknown History Ondansetron [Ondansetron Odt] 4 mg PO Q6H PRN PRN 05/07/18 07/09/18 Unknown History Oxybutynin [Ditropan] 5 mg PO BID 05/07/18 07/09/18 05/06/18 20:00 History Potassium Chloride 10 meq PO DIRECTED 05/07/18 07/09/18 Unknown History Quetiapine [Seroquel] 25 mg PO BID 05/07/18 07/09/18 05/06/18 20:00 History Simvastatin 20 mg PO QHS 05/07/18 07/09/18 05/06/18 20:00 History Clindamycin [Cleocin] 300 mg PO Q6HR #28 cap 07/10/18 Unknown Rx - History of Present Illness -Gen Adult Nature of Presenting Problems: 88yom with hx of dementia and hyperlipidemia presents with fever and L hip pain that radiates to LLE for one week. The patient's daughter acts as historian. She reports that the patient was seen at the [facility] ED last week for fever symptoms. She reports that he was recently found on the floor in his room after he fell. She reports that he normally walks without assistance, and occasionally uses a walker. The patient states that he is "hurting all over." The patient's daughter reports that he was prescribed antibiotics. She reports that he resides at [facility] in [place], [place]. The patient's daughter is at bedside. Location of Pain/Injury: reports: pelvis (L hip) Pain Radiation: reports: legs (lower) (LLE) Quality of Pain: reports: other ("hurting") Severity: reports: mild Onset/Duration: reports: 1 week ago Timing: reports: still present, intermittent, constant Context/Activities at Onset: reports: none Modifying Factors: improves with: nothing Associated Symptoms: reports: other (fever, L hip pain that radiates to LLE) Similar Symptoms Previously?: No Recently seen or treated by another doctor?: No Review of Systems - Adult - REVIEW OF SYSTEMS - ADULT ROS:: limited per condition (pt has hx of dementia) Constitutional: reports: fever. denies: chills Eyes: reports: no symptoms reported Ears, Nose, Mouth & Throat: reports: no symptoms reported Cardiovascular: reports: no symptoms reported Respiratory: reports: no symptoms reported Gastrointestinal: reports: no symptoms reported Genitourinary: reports: no symptoms reported Musculoskeletal: reports: other (L hip pain that radiates to LLE) Integumentary: reports: no symptoms reported Neurological: reports: no symptoms reported Psychiatric: reports: no symptoms reported Endocrine: reports: no symptoms reported Hematologic/Lymphatic: reports: no symptoms reported Allergic/Immunologic: reports: no symptoms reported All Other Systems: Reviewed and Negative Past History - Adult - PAST MEDICAL HISTORY-ADULT Review of Records: reports: Old Records Reviewed, Nursing Assessment Review, Medications Reviewed Major Childhood Illnesses: reports: denies history Cardiovascular: reports: A-Fib, arrhythmia, CAD, hyperlipidemia Respiratory: reports: COPD Gastrointestinal: reports: denies history Obstetrical/Gynecological: reports: denies history Genitourinary: reports: denies history Musculoskeletal: reports: denies history Neurological: reports: dementia Endocrine/Immune: reports: denies history Other Conditions: reports: denies history - PRIOR SURGERIES/PROCEDURES Surgical/Procedure History: reports: appendectomy, CABG, other (ear implants) - IMMUNIZATION STATUS Childhood Immunizations: See Nurse Assessment Flu Vaccine: See Nurse Assessment - FAMILY HISTORY Family History: reviewed, not pertinent - SOCIAL HISTORY Smoking: other (former) Substance Use: denies Living Situation: family Physical Exam-General - PHYSICAL EXAM-ADULT Initial Vital Signs Reviewed: Yes - CONSTITUTIONAL General Appearance: alert, other (pt has hx of dementia, pt is mainly verbally unresponsive, pt follows most commands) - EYES Eyes: PERRL/EOMI, pink conjunctivae - NECK Neck: non-tender, supple - RESPIRATORY Respiratory: chest non-tender, lungs clear, normal breath sounds, no pleuratic chest pain, no respiratory distress, no accessory muscle use - CARDIOVASCULAR Cardiovascular: regular rate, rhythm, no murmur - GASTROINTESTINAL (ABDOMEN) Abdominal Exam: normal bowel sounds, non tender, soft - MUSCULOSKELETAL Extremity: normal range of motion, non-tender, normal inspection - SKIN Integumentary: normal color, warm/dry - NEUROLOGIC Neurologic: other (pt has hx of dementia, pt is mainly verbally unresponsive, pt follows most commands) - PSYCHIATRIC Psych/Mental Status: other (pt has hx of dementia, pt is mainly verbally unresponsive, pt follows most commands) Progress - PLAN OF CARE/RESULTS Progress/Plan/Lab Results: Vital Signs - 8 hr 07/12/18 13:58 Temperature 98.3 F Pulse Rate 77 Respiratory Rate 20 Blood Pressure 123/56 O2 Sat by Pulse Oximetry 95 Orders Category Date Time Status BLOOD CULTURE [BLDCUL] Stat Lab 07/12/18 15:05 Ordered CBC WITH ELECTRONIC DIFF [HEME] Stat Lab 07/12/18 15:05 Ordered COMPREHENSIVE METABOLIC PANEL [CHEM] Stat Lab 07/12/18 15:05 Ordered LACTATE, PLASMA [CHEM] Stat Lab 07/12/18 15:05 Ordered TROPONIN T Stat Lab 07/12/18 15:05 Ordered URINALYSIS W/POSS RFLX CULT [URINALYSIS] Stat Lab 07/12/18 14:46 Uncollected Result Diagrams: 07/12/18 15:05 07/12/18 15:05 - CONSULTS/PCP/HOSPITALIST Notification #1 *Consult/PCP/Hospitalist*: Dr. Cespedes Time Discussed: 18:52 Consult Disposition: Admit Departure - Departure Date of Disposition Decision: 07/12/18 Time of Disposition Decision: 18:52 DIAGNOSIS: UTI (urinary tract infection) Disposition: ADMITTED INPATIENT 09 Certified Medical Emergency: Emergent Condition: Stable Referrals and Follow-Ups: Glenn Blanco MD [Primary Care Provider] - - Critical Care Note This patient required my direct & personal management of CC.: No Attestation - Physician/ ELLIOTT Attestation Patient care was provided by Advanced Practice Provider:: No The physician spent face to face time with patient:: Yes Advanced Practice Provider documentation review:: Supervising physician onsite and consulted in the evaluation and care of this patient. The physician did have a face to face encounter with the patient. This chart was documented by the indicated scribe, (Lucila Mancuso, [place]) and accurately reflects the services I performed and decisions made by me, Winter Servin MD, as attested by the provider's signature.
--- NOTE | 2018-07-12 19:18 | Diag Imaging Result Doc PS360 ---
CT PELVIS W/O CONTRAST - 07/12/2018 INDICATION: persistent left hip pain after fall COMPARISON: None FINDINGS: There is no fracture or dislocation. There is severe rectal stool impaction with a stool ball measuring 11 cm. IMPRESSION: No fractures. Severe rectal stool impaction. This exam was performed using automated exposure control, adjustment of mA or kV according to patient size, and/or use of iterative reconstruction technique Electronically signed by Ruben Stone 07/12/2018 7:15 PM
[2018-07-12] MEDS: NS 1,000 ML IV SCH (19:30)
--- NOTE | 2018-07-12 19:49 | HISTORY AND PHYSICAL ---
CHIEF COMPLAINT: Altered mentation and recent fall. HISTORY OF PRESENT ILLNESS: This is an 88-year-old male with history of dementia and CAD, status post CABG. He came in for evaluation today. He had fever and hip pain. Fever was up to 103 degrees. The patient is confused at baseline and he has pretty significant dementia. He is in an assisted living at this point, I think a memory unit. He fell and was found down on the floor. He normally ambulates with a walker. He was complaining of hip pain. He has been getting antibiotics which I think is clindamycin for cellulitis of his lower extremities, which has been an off-and-on issue. He was here in the ER about 3 days ago with reported fever. At that time he did not have a fever and workup then was really unremarkable. Today he has a white count of 23,000. He has pyuria, but all of that was normal 3 days ago. Workup in the ER revealed the UTI with leukocytosis, some degree of renal failure and renal insufficiency, and he was admitted for further treatment. PAST MEDICAL HISTORY: 1. Dementia. 2. CAD, status post CABG. 3. Bladder incontinence. PAST SURGICAL HISTORY: 1. He had a CABG about 20 years ago. 2. Appendectomy. 3. Cataract repair. 4. Ear implants. SOCIAL HISTORY: No tobacco. He lives with his family. Daughter is his primary caregiver. He is retired from the . No ethanol. 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 ALLERGIES: No known drug allergies. FAMILY HISTORY: Reviewed. CAD in mother, brother and father. MEDICATIONS: He currently takes multiple medicines which have not been confirmed: Toprol, Seroquel, Lasix, Eliquis, Ditropan, simvastatin. REVIEW OF SYSTEMS: Otherwise negative [id number] review of systems. PHYSICAL EXAMINATION: VITAL SIGNS: Blood pressure currently 123/56, heart rate 84, respiratory rate 30, temperature 98.6 degrees. GENERAL: A well-developed male in no acute distress. HEENT: Head exam was normocephalic, atraumatic. Eye exam: Pupils are equal, round and reactive to light. Extraocular movements are intact. Ear, nose and throat exam: He had dry mucous membranes. NECK: Supple. CARDIOVASCULAR: Regular rate and rhythm. No murmurs, gallops or rubs. PULMONARY: Bilateral breath sounds. Clear to auscultation. GASTROINTESTINAL: Soft, nontender, nondistended. Bowel sounds are positive. NEUROLOGICAL: Exam was nonfocal. Cranial nerves 2 through 12 were grossly intact. No pronator drift. No facial asymmetry, but he was clearly disoriented. MUSCULOSKELETAL: He is 4/5 in all 4 extremities. LABORATORY DATA: White count is 23, hemoglobin and hematocrit 14 and 44, platelets 196,000. BUN and creatinine 26 and 1.6. Urine: Positive nitrites, [id number] white blood cells. ASSESSMENT AND PLAN: An 88-year-old male with fever, altered mentation and gross pyuria. 1. Complicated urinary tract infection. I think he is doing better. We will initiate Rocephin and follow closely. 2. Altered mental status. It is likely delirium associated with his current infection. We will continue to monitor closely. 3. Coronary artery disease, status post coronary artery bypass graft. Appears to be stable. 4. Hip pain. CT has been analyzed for possible occult fracture. We will follow up results and consider Orthopedic evaluation pending results. 5. Acute kidney injury with mild dehydration. We will continue intravenous fluids and follow closely. He had an echocardiogram done a couple of years ago and it was normal at that time. Ejection fraction was 63%. We will continue to follow. 6. Disposition pending his clinical status. We will continue to monitor very closely. cc: MD Glenn Garnett MD
[2018-07-12] MEDS ORDERED: ROCEPHIN 1 GM in NS 50 ML IV SCH (20:00)
[2018-07-12] MEDS ORDERED: TYLENOL PO PRN (20:13)
[2018-07-12] MEDS ORDERED: ZOFRAN IV PRN (20:13)
[2018-07-12] MEDS ORDERED: FLEET ENEMA PR ONE (20:13)
[2018-07-12] MEDS: SEROQUEL PO SCH (21:29)
[2018-07-13] MEDS ORDERED: CALMOSEPTINE OINTMENT TOP PRN (03:07)
[2018-07-13] MEDS: NS 1,000 ML IV SCH (06:30)
[2018-07-13 06:55] LABS: BASO# 0.01 X1000 (0.0-0.2); HEMATOCRIT 40.9 % (42.0-52.0); HEMOGLOBIN 12.9 g/dL (14.0-18.0); IMM GRAN# 0.07 X1000 (0.0-0.04); IMM GRAN% 0.3 % (0.0-0.5); LYMPH# 0.87 X1000 (1.2-3.4); LYMPH% 4.1 % (20.5-51.1); MCH 30.6 PG (27-31); MCHC 31.5 g/dL (33-37); MCV 96.9 FL (81-99); MONO# 1.34 X1000 (0.11-0.59); MONO% 6.3 % (1.7-9.3); NEUT% 89.3 % (42.2-75.2); PLT 185 X1000 (130-400); RBC 4.22 XMIL (4.7-6.1); RDW 13.8 % (11.5-14.5); WBC 21.39 X1000 (4.8-10.8)
[2018-07-13 07:08] LABS: CREATININE 1.3 mg/dL (0.7-1.2); POTASSIUM 3.3 mmol/L (3.5-5.1)
[2018-07-13 07:12] LABS: BANDS 8 % (0-1); LYMPHS 4 % (21-51); MONO 2 % (1-9); SEGS 84 % (42-75)
[2018-07-13] MEDS: SEROQUEL PO SCH ×2 (09:00→22:16)
[2018-07-13] MEDS ORDERED: MYCOSTATIN CREAM TOP PRN (10:46)
[2018-07-13] MEDS ORDERED: ROCEPHIN 1 GM in NS 50 ML IV SCH (11:15)
--- NOTE | 2018-07-13 15:56 | PROGRESS NOTE ---
DATE: 07/13/2018 SUBJECTIVE: The patient has no major complaints. He is still very confused. OBJECTIVE: Vital Signs: Blood pressure 112/51, heart rate of 73, respiratory rate of 20, temperature is 100 degrees. His T-max was a 101.2 degrees. That was last night. Cardiovascular: Regular rate and rhythm. Pulmonary: Bilateral breath sounds clear to auscultation. GI: Soft, nontender, nondistended. Bowel sounds were positive. Laboratory Data: White count is 21,000, down from 23,000. Hemoglobin and hematocrit 12 and 40, platelets 185,000, 8% bands. Potassium 3.3, creatinine 1.3 down from 1.6. PROBLEM LIST: 1. Complicated gram-negative adelaide urinary tract infection with sepsis and bacteremia now. We will upgrade or change to cefepime and follow. No aminoglycosides. He is hard of hearing and has renal failure. Await final identification. 2. Toxic encephalopathy related to infection and he has severe underlying dementia. We will continue his Seroquel. 3. Coronary artery disease, status post bypass. He seems to be doing okay. 4. Fecal impaction. We will continue his treatment. Continue bowel regimen and follow closely. I think he has had results as far as I can tell. 5. Dementia. Again, aware of his dementia. We will continue to follow closely. 6. Disposition pending clinical status. Hopefully, he will not need any intravenous antibiotics. 7. Acute kidney injury. We will continue intravenous fluids. Urine electrolytes are nonspecific. We will continue to follow. cc: Saad Cespedes MD
[2018-07-13] MEDS: MIRALAX PO SCH (16:59)
[2018-07-13] MEDS: LACTULOSE PO SCH ×2 (16:59→22:20)
[2018-07-13] MEDS: COLACE PO SCH (17:00)
[2018-07-13] MEDS: D5 1/2 NS 1,000 ML IV SCH (17:01)
[2018-07-13] MEDS: CALMOSEPTINE OINTMENT TOP SCH ×2 (17:01→22:17)
[2018-07-13] MEDS: CULTURELLE PO SCH ×2 (17:07→22:20)
[2018-07-13] MEDS: MAXIPIME 1 GM in NS 50 ML IV SCH (17:07)
[2018-07-13] MEDS: DITROPAN PO SCH (22:16)
[2018-07-13] MEDS: ELIQUIS PO SCH (22:16)
[2018-07-13] MEDS: ZOCOR PO SCH (22:16)
[2018-07-13] MEDS ORDERED: MAXIPIME 1 GM in NS 50 ML IV SCH (23:00)
[2018-07-14] MEDS: MAXIPIME 1 GM in NS 50 ML IV SCH (04:10)
[2018-07-14] MEDS: D5 1/2 NS 1,000 ML IV SCH (06:36)
[2018-07-14] MEDS: CULTURELLE PO SCH ×3 (06:36→17:43)
[2018-07-14] MEDS ORDERED: SEROQUEL PO SCH (09:00)
[2018-07-14] MEDS ORDERED: LASIX PO SCH (09:00)
[2018-07-14] MEDS: MIRALAX PO SCH (09:13)
[2018-07-14] MEDS: SEROQUEL PO SCH ×2 (09:13→20:37)
[2018-07-14] MEDS: DITROPAN PO SCH ×2 (09:13→20:37)
[2018-07-14] MEDS: LACTULOSE PO SCH ×2 (09:13→20:36)
[2018-07-14] MEDS: CALTRATE 600 + D PO SCH (09:13)
[2018-07-14] MEDS: CALMOSEPTINE OINTMENT TOP SCH ×3 (09:14→18:22)
[2018-07-14] MEDS: ELIQUIS PO SCH ×2 (09:14→20:37)
[2018-07-14] MEDS: TOPROL XL PO SCH (09:14)
[2018-07-14] MEDS ORDERED: MERREM 1 GM in NS 50 ML IV SCH (09:45)
[2018-07-14 10:42] LABS: BASO# 0.01 X1000 (0.0-0.2); BASO% 0.1 % (0.0-0.8); EOS# 0.02 X1000 (0.0-0.7); EOS% 0.2 % (0.0-10.0); HEMATOCRIT 40.6 % (42.0-52.0); HEMOGLOBIN 12.7 g/dL (14.0-18.0); IMM GRAN# 0.03 X1000 (0.0-0.04); IMM GRAN% 0.3 % (0.0-0.5); LYMPH# 0.94 X1000 (1.2-3.4); LYMPH% 8.2 % (20.5-51.1); MCH 30.6 PG (27-31); MCHC 31.3 g/dL (33-37); MCV 97.8 FL (81-99); MONO# 0.64 X1000 (0.11-0.59); MONO% 5.6 % (1.7-9.3); MPV 10.3 FL (7.4-10.4); NEUT# 9.89 X1000 (1.4-6.5); NEUT% 85.6 % (42.2-75.2); PLT 198 X1000 (130-400); RBC 4.15 XMIL (4.7-6.1); RDW 13.7 % (11.5-14.5); WBC 11.53 X1000 (4.8-10.8)
[2018-07-14 10:59] LABS: EOS 1 % (1-10); LYMPHS 7 % (21-51); MONO 3 % (1-9); SEGS 89 % (42-75)
[2018-07-14 11:02] LABS: CALCIUM 7.7 mg/dL (8.8-10.2); CREATININE 1.2 mg/dL (0.7-1.2); POTASSIUM 2.7 mmol/L (3.5-5.1)
--- NOTE | 2018-07-14 15:50 | PROGRESS NOTE ---
DATE: 07/14/2018 SUBJECTIVE: Patient has no focal complaints. OBJECTIVE: Blood pressure is 96/46, heart rate 60, respiratory rate 18, temperature 97.9 degrees, 99% on room air.Cardiovascular: Regular rate and rhythm. Pulmonary: Bilateral breath sounds. Clear to auscultation. GI: Soft, nontender, nondistended. Bowel sounds are positive. LABORATORY DATA: Unremarkable. Potassium 2.7, BUN and creatinine 23 and 1.2. White count 11. Cultures: E- coli from the urine which is an ESBL sensitive to amikacin, Macrobid, sulfa and meropenem only. Blood culture 1 out of 2 for gram-negative adelaide presumably the same bug, but we are waiting for final data. ASSESSMENT: 1. Complicated extended spectrum beta lactamase Escherichia coli urinary tract infection with bacteremia. He is now on meropenem based on sensitivities. I anticipate he will need at least 2 weeks of IV therapy. I have gone ahead and consulted ID. We can't do blood cultures for another 48 hours because his first day of treatment is today. 2. Encephalopathy dementia. He seems to be doing better on his current regimen. 3. Hypernatremia, has not improved. We will initiate D5 and follow. He had been D5 half-normal. 4. Fecal impaction has resolved. We will continue bowel regimen. 5. Acute kidney injury that is also improved with hydration. DISPOSITION: Pending clinical status, although at this point he will not be able to go back to assisted living on IV antibiotics, so we will have to look at probably short-term placement. I will get social work involved. We will go and get physical therapy to start working with him and follow closely. cc: Saad Cespedes MD
[2018-07-14] MEDS: INVANZ 1 GM/NS 1 GM/50 ML IVPB IV SCH (17:43)
[2018-07-14] MEDS: D5W 1,000 ML IV SCH ×2 (17:43→17:44)
--- NOTE | 2018-07-14 17:57 | INFECTIOUS DISEASE CONSULT REP ---
DATE: 07/14/2018 CONCLUSION: The patient is admitted to the hospital with an extended spectrum beta lactamase producing E. coli urinary tract infection. The patient also has a gram-negative [place] bacteremia which I think most likely will be identified as the same E. coli that is in the urine. RECOMMENDATIONS: I suggest switching from meropenem to ertapenem. Also, I suggest ordering a renal ultrasound with instruction to measure the postvoid residual urine. If the patient cannot be taken care of at home, he may be a candidate for an LTAC to treat his urinary tract infection and bacteremia. I plan to treat the patient for a total of 14 days with ertapenem with day 1 being the first day that the repeat blood cultures are sterile. DISCUSSION: The patient is unable provide a history. He has advanced dementia. His daughter is present and she knows a lot about him. The patient's lab studies thus far show an initial CBC that showed a white count of 23,310 and today the white count is down to 11,530, hemoglobin is 12.7, and platelet count is 198,000. Creatinine is 1.2. GFR is 57. Swab for influenza is negative. Bladder scan showed 93 ml of urine. REVIEW OF SYSTEMS: I was unable to obtain this from the patient, but I did ask his daughter and she told me a few things. First of all, the patient does wear glasses and he has decreased hearing. He also is incontinent of both stool and urine. He has dementia and is unable to remember most things. As far she knew he was not having chest pain or abdominal pain or diarrhea. He also as best she knew was not complaining of pain in his joints or muscles. The patient has not been having rashes that she noticed when visiting him. Bones, joints, muscle: The patient's daughter tells me that intermittently the patient's left leg swells. Currently it is not swollen. PREVIOUS HOSPITALIZATIONS AND OPERATIONS: He has had surgery on his ears. He has had an appendectomy. He has had surgery on the uvula because of sleep apnea. The patient also has had coronary artery bypass grafting. MEDICAL DISEASES: Positive for dementia, hypertension, coronary artery disease, hyperlipidemia, and atrial fibrillation. INFECTIOUS DISEASE HISTORY: Negative for pneumonia and prior UTI. FAMILY HISTORY: Positive for myocardial infarction and cancer. SOCIAL HISTORY: The patient lives in assisted living. He is a . He does not have any pets where he lives. He does not smoke cigarettes, drink alcoholic beverages, or abuse drugs. ALLERGIES: He has no known drug allergies. HOME MEDICATIONS: Acetaminophen, Eliquis, minerals and vitamins, clindamycin, Colace, furosemide, metoprolol, ondansetron, oxybutynin, Seroquel, and simvastatin. PHYSICAL EXAMINATION: Vital Signs: Temperature is 97.9 degrees, pulse 60, respirations 18, blood pressure 96/46. Patient is 5 feet 11 inches tall and weighs 154 pounds. General: This is a chronically ill and somewhat malnourished-appearing, elderly male. He is in no acute distress. Head, eyes, ears, nose, and throat: Patient has decreased hearing. He seemed to be able to see near objects. He does not have any white coating on his tongue. Neck: No meningismus. Lungs: Clear to auscultation. Cardiovascular: Heart rate is irregular. Abdomen: Abdomen and flanks are soft and nontender. Neurologic: The patient is awake. He has decreased hearing. He is able to walk with the aid of a walker. He does not have any tremor. Integument: No rash. Thank you for the consult. cc: Trevon Omalley MD [facility]
[2018-07-14] MEDS: ZOCOR PO SCH (20:36)
--- NOTE | 2018-07-15 04:17 | INFECTIOUS DISEASE PROGRESS NO ---
DATE: 07/14/2018 ADDENDUM: The patient had a bladder scan which revealed 93 mL of urine in the bladder. cc: Trevon Omalley MD
[2018-07-15] MEDS: CULTURELLE PO SCH ×3 (06:27→18:51)
[2018-07-15] MEDS: D5W 1,000 ML IV SCH (06:30)
[2018-07-15 07:10] LABS: BASO# 0.01 X1000 (0.0-0.2); BASO% 0.1 % (0.0-0.8); EOS# 0.13 X1000 (0.0-0.7); EOS% 1.9 % (0.0-10.0); HEMATOCRIT 39.8 % (42.0-52.0); HEMOGLOBIN 12.4 g/dL (14.0-18.0); IMM GRAN# 0.06 X1000 (0.0-0.04); IMM GRAN% 0.9 % (0.0-0.5); LYMPH# 1.07 X1000 (1.2-3.4); LYMPH% 15.7 % (20.5-51.1); MCH 30.4 PG (27-31); MCHC 31.2 g/dL (33-37); MCV 97.5 FL (81-99); MONO# 0.69 X1000 (0.11-0.59); MONO% 10.1 % (1.7-9.3); MPV 10.1 FL (7.4-10.4); NEUT# 4.84 X1000 (1.4-6.5); NEUT% 71.3 % (42.2-75.2); PLT 198 X1000 (130-400); RBC 4.08 XMIL (4.7-6.1); RDW 13.7 % (11.5-14.5)
[2018-07-15 07:31] LABS: AGAP 9; BUN 16 mg/dL (8-22); CALCIUM 7.7 mg/dL (8.8-10.2); CHLORIDE 107 mmol/L (98-107); COSMO 287; ESTIMATED GFR > 60; GLUCOSE 119 mg/dL (70-104); POTASSIUM 2.9 mmol/L (3.5-5.1); SODIUM 143 mmol/L (136-145); TCO2 27 mmol/L (25-35)
[2018-07-15] MEDS: CALTRATE 600 + D PO SCH (09:28)
[2018-07-15] MEDS: DITROPAN PO SCH ×2 (09:28→20:00)
[2018-07-15] MEDS: TOPROL XL PO SCH (09:28)
[2018-07-15] MEDS: ELIQUIS PO SCH ×2 (09:28→20:00)
[2018-07-15] MEDS: CALMOSEPTINE OINTMENT TOP SCH ×3 (09:29→18:51)
[2018-07-15] MEDS: LACTULOSE PO SCH ×2 (09:29→20:00)
[2018-07-15] MEDS: MIRALAX PO SCH (09:29)
[2018-07-15] MEDS: SEROQUEL PO SCH ×2 (09:29→20:00)
[2018-07-15] MEDS ORDERED: KLOR-CON PO ONE (09:46)
--- NOTE | 2018-07-15 10:55 | Diag Imaging Result Doc PS360 ---
EXAM: US RENAL 2 (RETROPER) COMPLETE INDICATION: aj/arf TECHNIQUE: COMPARISON: Abdominal ultrasound dated 12/20/2016 FINDINGS: The kidneys are grossly normal in echotexture with no discrete renal mass or hydronephrosis. The right kidney measures 10.8 cm and the left kidney measures 11.1 cm in the greatest longitudinal axes. Both renal cortices measure up to 0.7 cm in thickness. The prevoid bladder volume is 245.7 mL. The post void residual volume is 132.5 mL. The urinary bladder is unremarkable, otherwise. IMPRESSION: Increased post void residual bladder volume. Unremarkable renal ultrasound, otherwise. Electronically signed by Richard Howard 07/15/2018 10:53 AM
[2018-07-15] MEDS: COLACE PO SCH (12:24)
[2018-07-15] MEDS: GEODON IM PRN ×2 (13:44→19:54)
[2018-07-15] MEDS: STERILE WATER INJ. INJ PRN ×2 (13:44→19:54)
[2018-07-15] MEDS ORDERED: ATIVAN IV PRN (15:30)
--- NOTE | 2018-07-15 18:07 | INFECTIOUS DISEASE PROGRESS NO ---
DATE: 07/15/2018 PRESENT ILLNESS: The patient has an extended spectrum beta lactamase producing urinary tract infection with an associated bacteremia. The patient apparently has been complaining of pain in the hip areas and sometimes the back. X-rays and CT scans have not shown anything yet. It is my understanding that the lumbar spine has not been looked at radiographically. MEDICATION: The patient is on ertapenem. Day 1 of treatment of the Escherichia coli infection will be the first day that the repeat blood cultures are sterile. PHYSICAL EXAMINATION: Vital Signs: Temperature is 98.3 degrees, pulse 62, respirations 16, blood pressure 140/71. General: This is a chronically ill and malnourished-appearing elderly male. He is in no acute distress. Head, eyes, ears, nose, and throat: The patient has decreased hearing, he is able to see near objects. Neck: No pain with movement. Lungs: Clear to auscultation. Cardiovascular: Heart rate is irregular. Abdomen: Soft and nontender. Pelvic: The hip joint areas were not swollen or red. When I move the patient's legs it seemed to hurt him a little bit in the upper part of the leg. Genitalia showed no swelling or erythema. Neurologic: The patient is awake. He has decreased hearing. He does not have a tremor. LAB AND X-RAY: The blood culture is growing the same E coli that the urine is. CBC shows a white count of 6800, hemoglobin 12.4 and platelet count 198,000. Creatinine is 1.0. GFR is greater than 60. Blood and urine cultures grew an extended spectrum beta lactamase producing E coli. The renal ultrasound of the kidneys was normal. There was a postvoid residual urine of 132. ASSESSMENT AND PLAN: The patient has an Escherichia coli urinary tract infection, bacteremia. My plan is to treat with ertapenem for a total of 14 days with day #1 being when the repeat blood cultures are 1st sterile. Regarding the patient's pain in the upper part of his legs, I am going to just get a regular x-ray of the lumbar spine to see if there is any abnormality. COMORBIDITIES: He has dementia. He also is in atrial fibrillation. cc: Trevon Omalley MD
--- NOTE | 2018-07-15 18:11 | Diag Imaging Result Doc PS360 ---
EXAM: LUMBAR SPINE 1 VIEW HISTORY: low back pain TECHNIQUE: Portable AP lumbar spine single view COMPARISON: None. FINDINGS: Mild scoliosis. Moderate degenerative bone spurring throughout the lumbar spine. No compression fracture identified. IMPRESSION: Mild scoliosis with moderate degenerative changes. Electronically signed by Alfonso Cespedes 07/15/2018 6:09 PM
[2018-07-15] MEDS: INVANZ 1 GM/NS 1 GM/50 ML IVPB IV SCH (18:51)
[2018-07-15] MEDS: ZOCOR PO SCH (20:00)
[2018-07-16] MEDS: CULTURELLE PO SCH ×3 (06:07→18:05)
[2018-07-16] MEDS: SEROQUEL PO SCH (08:56)
[2018-07-16] MEDS: TOPROL XL PO SCH (08:56)
[2018-07-16] MEDS: CALMOSEPTINE OINTMENT TOP SCH ×3 (08:56→18:05)
[2018-07-16] MEDS: ELIQUIS PO SCH (08:56)
[2018-07-16] MEDS: CALTRATE 600 + D PO SCH (08:56)
[2018-07-16] MEDS: DITROPAN PO SCH (08:56)
[2018-07-16] MEDS: LACTULOSE PO SCH (08:56)
[2018-07-16] MEDS: MIRALAX PO SCH (08:56)
[2018-07-16] MEDS: COLACE PO SCH (08:59)
[2018-07-16 09:54] LABS: AGAP 9; BUN 13 mg/dL (8-22); CALCIUM 8.3 mg/dL (8.8-10.2); CHLORIDE 108 mmol/L (98-107); COSMO 289; CREATININE 0.9 mg/dL (0.7-1.2); ESTIMATED GFR > 60; GLUCOSE 93 mg/dL (70-104); POTASSIUM 3.8 mmol/L (3.5-5.1); SODIUM 145 mmol/L (136-145); TCO2 28 mmol/L (25-35)
[2018-07-16] MEDS ORDERED: BLISTEX MEDICATED BERRY LIP BALM TOP PRN (10:08)
[2018-07-16] MEDS ORDERED: NS 1,000 ML IV ONE (15:53)
[2018-07-16] MEDS ORDERED: HALDOL IV PRN (15:54)
--- NOTE | 2018-07-16 16:12 | PROGRESS NOTE ---
DATE: 07/16/2018 SUBJECTIVE: The patient has no focal complaints. He has gotten very agitated. OBJECTIVE: Vital Signs: Blood pressure is 115/70, heart rate of 80, respiratory rate 18, temperature 97.6 degrees, 97% on room air. Cardiovascular: Regular rate and rhythm. Pulmonary: Bilateral breath sounds. Clear to auscultation. GI: Soft, nontender, nondistended. Bowel sounds are positive. LABORATORY DATA: Repeat blood cultures are no growth so far. His white count was normal yesterday. Basic looked okay. PROBLEM LIST: 1. Extended Spectrum Beta-Lactamase Escherichia coli urinary tract infection with bacteremia, currently on Invanz. Waiting on negative blood cultures before we can progress with a PICC line, but I think by Saturday, we should be able to get a PICC. 2. Dementia with agitation. We will adjust medicines. I am just a little concerned he is getting over-sedated on current regimen. DISPOSITION: Pending clinical status we are looking at placement for treatment as far as his IV is concerned. cc: Saad Cespedes MD
[2018-07-16] MEDS: INVANZ 1 GM/NS 1 GM/50 ML IVPB IV SCH (17:58)
--- NOTE | 2018-07-16 19:04 | INFECTIOUS DISEASE PROGRESS NO ---
DATE: 07/16/2018 PRESENT ILLNESS: Mr. Zuniga has an extended-spectrum beta-lactamase producing Escherichia coli urinary tract infection, with an associated bacteremia. MEDICATIONS: He is receiving ertapenem 1 g IV every 24 hours. OBJECTIVE: Vital signs: Temperature is 98 degrees, pulse rate 87, respiratory rate 21, blood pressure 131/72, O2 saturation 96% on room air. General: This is a chronically ill-appearing, elderly gentleman. He is lying in bed, currently in no acute distress, lethargic and sleeping. HEENT: Atraumatic, normocephalic. Oral mucous membranes are pink and dry. Conjunctivae are pink. Cardiovascular: Heart rate is irregular. Underlying rhythm is normal sinus, with frequent premature atrial contractions on the monitor. Respiratory: Lung sounds are clear to auscultation but diminished in the bases. Abdomen is soft, round and nontender on palpation. Bowel sounds are active. Neurologic: He is drowsy and sedated after receiving Ativan this morning, which his daughter states has made him sleep all day. He will rouse and move his extremities, but there is generalized weakness noted. LABORATORY & X-RAY: No CBC available today; however, his creatinine is 0.9, estimated GFR is >60. His blood and urine cultures have both grown Escherichia coli which are ESBL-producing. Blood cultures were redrawn this morning and are preliminary. No imaging reports today; however, yesterday his lumbar spine x-ray showed moderate degenerative changes with mild scoliosis. ASSESSMENT AND PLAN: Mr. Zuniga has an Escherichia coli urinary tract infection with bacteremia that is extended-spectrum [id number]. He will need 14 days of treatment with ertapenem. Day 1 will be his first set of sterile blood cultures which we have yet to obtain. Hopefully today's blood cultures that were drawn will be the first day. Once we have sterile blood cultures, we will need to place a peripherally inserted central catheter line. The patient will most likely need to be transferred to a care home facility where he can receive the ertapenem every day for his 14-day treatment. He normally resides at an assisted living facility. These plans been discussed with and recommended by Dr. Omalley. COMORBIDITIES: for Mr. Zuniga include that he is elderly with dementia, coronary artery disease, and bladder incontinence. Dictated by DAVIDA Acosta for Trevon Omalley MD This chart was documented by, DAVIDA Acosta and accurately reflects the services performed, treatment plan and medical decisions as attested by the providers signature Trevon Omalley MD. cc: Trevon Omalley MD [facility]
[2018-07-17] MEDS: ZOCOR PO SCH ×2 (02:33→21:48)
[2018-07-17] MEDS: ELIQUIS PO SCH ×3 (02:33→21:48)
[2018-07-17] MEDS: LACTULOSE PO SCH ×3 (02:33→21:48)
[2018-07-17] MEDS: DITROPAN PO SCH ×3 (02:33→21:48)
[2018-07-17] MEDS: SEROQUEL PO SCH ×3 (02:34→21:48)
[2018-07-17] MEDS: CULTURELLE PO SCH ×3 (06:10→18:13)
[2018-07-17 07:51] LABS: BASO# 0.02 X1000 (0.0-0.2); BASO% 0.3 % (0.0-0.8); EOS# 0.22 X1000 (0.0-0.7); EOS% 3.1 % (0.0-10.0); HEMATOCRIT 42.3 % (42.0-52.0); HEMOGLOBIN 13.2 g/dL (14.0-18.0); IMM GRAN% 1.4 % (0.0-0.5); LYMPH% 15.7 % (20.5-51.1); MCH 30.4 PG (27-31); MCHC 31.2 g/dL (33-37); MCV 97.5 FL (81-99); MONO# 0.75 X1000 (0.11-0.59); MONO% 10.7 % (1.7-9.3); NEUT# 4.83 X1000 (1.4-6.5); NEUT% 68.8 % (42.2-75.2); PLT 244 X1000 (130-400); RBC 4.34 XMIL (4.7-6.1); RDW 13.3 % (11.5-14.5); WBC 7.02 X1000 (4.8-10.8)
[2018-07-17 08:01] LABS: AGAP 9; BUN 16 mg/dL (8-22); CALCIUM 8.5 mg/dL (8.8-10.2); CHLORIDE 108 mmol/L (98-107); COSMO 285; CREATININE 0.8 mg/dL (0.7-1.2); ESTIMATED GFR > 60; GLUCOSE 85 mg/dL (70-104); POTASSIUM 3.9 mmol/L (3.5-5.1); SODIUM 143 mmol/L (136-145); TCO2 26 mmol/L (25-35)
[2018-07-17 09:19] LABS: INR 1.4; PROTIME 18.3 Seconds (11.0-16.0)
[2018-07-17] MEDS: TOPROL XL PO SCH (09:24)
[2018-07-17] MEDS: MIRALAX PO SCH (09:26)
[2018-07-17] MEDS: CALTRATE 600 + D PO SCH (09:28)
[2018-07-17] MEDS ORDERED: NS 250 ML ONE (09:38)
--- NOTE | 2018-07-17 12:34 | Diag Imaging Result Doc PS360 ---
EXAM: CHEST-PORTABLE 07/17/2018 HISTORY: Rehab placement TECHNIQUE: AP portable at 1227 COMMENT: There is a PICC line on the right with its tip in the superior vena cava. There is ill-defined opacity in the left lower lobe which was not clearly present on 07/09/2018. IMPRESSION: Atelectasis versus mild pneumonia left lower lobe. Electronically signed by Easton Da Silva 07/17/2018 12:32 PM
--- NOTE | 2018-07-17 13:46 | DISCHARGE SUMMARY ---
ADMISSION DATE: 07/12/2018 DISCHARGE DATE: 07/17/2018 PRINCIPAL DIAGNOSIS: Urinary tract infection secondary to Escherichia coli. SECONDARY DIAGNOSES: 1. Escherichia coli bacteremia. 2. Acute delirium. 3. Dementia. 4. Coronary artery disease. 5. Bladder incontinence. 6. Hyperlipidemia. 7. History of atrial fibrillation. DISCHARGE MEDICATIONS: The discharge medications include the following, apixaban 5 mg p.o. twice a day, Colace 100 mg p.o. daily, Lasix 20 mg p.o. daily, nystatin to be applied twice a day, ondansetron 4 mg every 6 hours as needed, oxybutynin 5 mg p.o. twice a day, potassium chloride 10 mEq p.o. every other day, Seroquel 25 mg p.o. at bedtime, simvastatin 20 mg p.o. at bedtime, acetaminophen 325 every 4 hours as needed, calcium with vitamin D 1 daily, metoprolol succinate 25 mg p.o. daily, Calmoseptine ointment 1 application topically 3 times a day, Seroquel 12 5 mg in the morning, and Digestive Advantage 1 p.o. 3 times a day before meals. Antibiotic per ID recommendation. CONSULTATIONS DONE DURING THIS HOSPITAL STAY: Dr. Trevon Omalley, Infectious Disease. PROCEDURES DONE DURING THIS HOSPITAL STAY: Pelvic CT 07/12/2018 shows no fracture but there is evidence of severe rectal stool impaction. Renal ultrasound done on 07/15/2018 showed increased postvoid residual bladder volume. Lumbar spine x-ray on 07/15/2018 showed mild scoliosis with moderate degenerative changes. HOSPITAL COURSE: Mr. Tim Zuniga is an 88-year-old male, who has a history of dementia, and coronary disease status post coronary artery bypass graft, had fever with temperature up to 103 degrees. He was also noted to be confused. He does have dementia as noted above. He had been living in assisted living prior to admission. The patient fell and was found on the floor. He normally ambulates with a walker. Prior to admission the patient had been getting clindamycin for cellulitis of the lower extremities. During his evaluation on this hospital stay his white count was noted to be raised at 23,000, and urine culture came back positive for Escherichia coli, and blood cultures came back positive for Escherichia coli as well. The patient was seen by the Infectious Disease team and was placed on antibiotics. At the time of presentation renal function was impaired and the patient required intravenous hydration. The patient seemed to have done fairly well. PHYSICAL EXAMINATION: Vitals: During my evaluation today, his vital signs were as follows, temperature 98 degrees, pulse 52, respiratory 16, blood pressure 143/67, oxygen saturation 99%. HEENT: Atraumatic, normocephalic. Cardiovascular: S1, S2. Respiratory system: Has evidence of good air entry bilaterally. Abdomen: Soft, nontender. No masses felt. Extremities: No evidence of significant edema. Central nervous system: The patient is awake, not in any obvious distress. LABORATORY DATA: WBC 7.02, hematocrit is 42.3, with a platelet count of 244,000. INR is 1.4. Sodium is 143, potassium 3.9, chloride is 108, bicarb 26, BUN 16, creatinine 0.8. PLAN: The patient can be discharged to rehab facility today. He will need PT/OT evaluation. He is expected to get discharge medications and complete his antibiotic course as recommended by the Infectious Disease team. Diet will be healthy heart. Activity as tolerated. cc: Bj Fernández MD [facility]
--- NOTE | 2018-07-17 15:10 | INFECTIOUS DISEASE PROGRESS NO ---
DATE: 07/17/2018 PRESENT ILLNESS: Mr. Zuniga is being treated for an extended spectrum beta lactamase-producing Escherichia coli urinary tract infection with an associated bacteremia. MEDICATIONS: Receiving ertapenem 1 g IV every 24 hours. PHYSICAL EXAMINATION: Vital Signs: Temperature is 98 degrees, pulse rate 52, respiratory rate 16, blood pressure 143/57, O2 saturations 99% on room air. General: This is a chronically ill- appearing elderly gentleman. He is lying in the bed, currently lethargic but arousable. HEENT: He is atraumatic, normocephalic. Oral mucous membranes are pink and moist. Conjunctivae are pink. Neck: Supple. Trachea is midline. Cardiovascular: Heart rate is irregular, sinus bradycardia on the monitor with frequent PACs. Respiratory: Lung sounds are clear in the upper lobes, diminished in the mid and bases. Abdomen: Soft, round, and nontender on palpation. Bowel sounds are active. Neurologic: He is drowsy but arousable, not opening his eyes, but he will follow commands at times. Generalized weakness noted. DIAGNOSTIC STUDIES: Today his white count is 7.02, hemoglobin 13.2, platelet count 244,000. Creatinine is 0.8, estimated GFR is greater than 60. His blood and urine cultures have both grown Escherichia coli that is ESBL producing. Blood cultures done yesterday are preliminary. Chest x-ray done today shows atelectasis versus mild pneumonia to the left lower lobe with an ill- defined opacity in the left lower lobe. ASSESSMENT AND PLAN: Mr. Zuniga is being treated for an Escherichia coli urinary tract infection and bacteremia. There may also possibly be a left lower lobe pneumonia versus atelectasis. He needs 14 days of treatment with ertapenem. Day 1 will be his first set of sterile blood cultures which will hopefully be the cultures drawn yesterday. The plan was for him to be discharged since the PICC line has been put into his right upper extremity; however, Dr. Omalley has asked that he stay until tomorrow to make sure blood cultures are sterile. He has spoken with Dr. Fernández about this, and after he is ready for discharge, the plan is for him to go to a [facility] facility to finish out his IV antibiotics. These plans have been discussed with and recommended by Dr. Omalley. COMORBIDITIES: For Mr. Zuniga include he is elderly with dementia, coronary artery disease and bladder incontinence. Dictated by DAVIDA Acosta for Trevon Omalley MD This chart was documented by, DAVIDA Acosta and accurately reflects the services performed, treatment plan and medical decisions as attested by the providers signature Trevon Omalley MD. cc: Trevon Omalley MD [facility]
[2018-07-17] MEDS: INVANZ 1 GM/NS 1 GM/50 ML IVPB IV SCH (18:13)
[2018-07-17] MEDS: COLACE PO SCH (18:14)
[2018-07-17] MEDS ORDERED: CALMOSEPTINE OINTMENT TOP PRN ×2 (18:16→18:20)
[2018-07-18] MEDS: CULTURELLE PO SCH ×2 (06:25→12:25)
[2018-07-18 08:06] VITALS: BP 138/67
[2018-07-18] MEDS: LACTULOSE PO SCH (10:42)
[2018-07-18] MEDS: MIRALAX PO SCH (10:42)
[2018-07-18] MEDS: CALTRATE 600 + D PO SCH (10:45)
[2018-07-18] MEDS: TOPROL XL PO SCH (10:45)
[2018-07-18] MEDS: ELIQUIS PO SCH (10:46)
[2018-07-18] MEDS: DITROPAN PO SCH (10:46)
[2018-07-18] MEDS: SEROQUEL PO SCH (10:46)
--- NOTE | 2018-07-21 03:53 | DISCHARGE SUMMARY ---
ADMISSION DATE: 07/12/2018 DISCHARGE DATE: 07/18/2018 ADDENDUM: Mr. Zuniga was held yesterday evening from discharge due to pending results of blood cultures. Blood cultures at this time continue to show no growth. The patient is stable for discharge to inpatient rehabilitation. The patient will continue with IV antibiotic therapy as directed by Dr. Omalley via the PICC line that was inserted yesterday. cc: Joy Stark MD
== END 2018-07-18 15:54 | DRG 871 ==
LOC: SUPCPDRO → ED 13:41 → 3N 19:49 → SUATTDRO 19:49 → 3N 07-14 10:41
PROVIDERS: ATTEND Internal Medicine
CPT/HCPCS: 36569; 51702; 71010; 71045; 72020; 72192; 76770; 80048; 80053; 81001; 82550; 82553; 82570; 83605; 84300; 84484; 85025; 85610; 85730; 87040; 87077; 87088; 87186; 87275; 87276; 87804; 96365; 97162; 97530; 99284; 99285; A9270; J0692; J0696; J1335; J1630; J2060; J2185; J3486; J7030; J7050; J7070

== ENCOUNTER 2019-02-17 06:16 | Inpatient (IN) ==
--- NOTE | 2019-02-17 06:57 | PROVIDER DOCUMENTATION ---
HPI-Abdominal Pain/GI Problem - General Chief Complaint: GI Bleed Stated Complaint: GI Bleed Time Seen by Provider: 02/17/19 06:26 Source: EMS, [facility] records Allergies/Adverse Reactions: Patient Allergies Allergy/AdvReac Type Severity Reaction Status Date / Time No Known Allergies Allergy Verified 01/08/19 02:01 Home Medications: Home Medication List Medication Instructions Recorded Confirmed Last Taken Type Acetaminophen 325 mg PO Q4-6H PRN PRN 01/08/19 02/17/19 1 Day Ago History ~02/16/19 Calcium Carbonate/Vitamin D3 1 tab PO DAILY 01/08/19 02/17/19 1 Day Ago History [Calcium 600 + Vit D 400 Softgl] ~02/16/19 Docusate Sodium 100 mg PO BID 01/08/19 02/17/19 1 Day Ago History ~02/16/19 Escitalopram [Lexapro] 10 mg PO DAILY 01/08/19 02/17/19 1 Day Ago History ~02/16/19 Ipratropium/Albuterol Sulfate 3 ml INHALATION Q4H PRN PRN 01/08/19 02/17/19 1 Day Ago History [Iprat-Albut 0.5-3(2.5) mg/3 ml] ~02/16/19 Lactobacillus Rhamnosus GG 1 cap PO TID AC 01/08/19 02/17/19 1 Day Ago History [[facility]] ~02/16/19 Lactose-Reduced Food [Ensure 237 ml PO DAILY 01/08/19 02/17/19 1 Day Ago History Original] ~02/16/19 Multivitamin with Folic Acid 400 mcg PO DAILY 01/08/19 02/17/19 1 Day Ago History [Thera Tablet] ~02/16/19 Oxybutynin [Ditropan] 5 mg PO BID 01/08/19 02/17/19 1 Day Ago History ~02/16/19 Potassium Chloride E.r. [Klor-Con] 10 meq PO EVERY OTHER DAY 01/08/19 02/17/19 1 Day Ago History ~02/16/19 Quetiapine [Seroquel] 25 mg PO QHS 01/08/19 02/17/19 1 Day Ago History ~02/16/19 Simvastatin 20 mg PO QHS 01/08/19 02/17/19 1 Day Ago History ~02/16/19 Apixaban [Eliquis] 2.5 mg PO BID #60 tab 01/15/19 02/17/19 1 Day Ago Rx ~02/16/19 Guaifenesin/Dm E.r. [Mucinex Dm] 1 ea PO BID 02/17/19 02/17/19 1 Day Ago History ~02/16/19 Sulfamethoxazole/Trimethoprim 1 ea PO BID 02/17/19 02/17/19 1 Day Ago History [Sulfamethoxazole-Tmp Ds Tablet] ~02/16/19 - History of Present Illness-ABD Nature of Presenting Problems: Presents to the [facility] from [place] via EMS who states that around 5am patient started having some coffee ground emesis and dropped O2 to 84% on room air. Per [place] pat ient was just admitted for ESBL PNA. No other history able to be obtained. Patient has a history of dementia and is at his baseline per [place]. Patient has no complaints and is very hard of hearing. Patient is DNR. Abdominal Pain Onset Location: reports: generalized abdomen Pain Radiation: reports: no radiation Quality of Pain: reports: aching Severity in ED: reports: mild Onset/Duration: reports: unsure Timing: reports: improving Activities at Onset: reports: rest Exposure to sick contacts?: No Modifying Factors: improves with: vomiting Associated Symptoms: reports: denies symptoms Last BM: unsure Dark Stools Present?: reports: none noticed Rectal Bleeding: reports: none # of Diarrhea Episodes: 0 Rectal Pain: reports: none # of Vomiting Episodes: 1 Emesis Description: reports: coffee grounds Bruising or Bleeding Gums?: No Similar Symptoms Previously?: No Recently seen or treated by another doctor?: No Review of Systems - Adult - REVIEW OF SYSTEMS - ADULT ROS:: limited due to h/o dementia Constitutional: reports: see HPI Eyes: reports: see HPI Ears, Nose, Mouth & Throat: reports: see HPI Cardiovascular: reports: see HPI Respiratory: reports: see HPI Gastrointestinal: reports: see HPI Genitourinary: reports: see HPI Musculoskeletal: reports: see HPI Integumentary: reports: see HPI Neurological: reports: see HPI Psychiatric: reports: see HPI Endocrine: reports: see HPI Hematologic/Lymphatic: reports: see HPI Allergic/Immunologic: reports: see HPI Past History - Adult - PAST MEDICAL HISTORY-ADULT Review of Records: reports: Old Records Reviewed Major Childhood Illnesses: reports: denies history Cardiovascular: reports: A-Fib, arrhythmia, CAD, hyperlipidemia Respiratory: reports: COPD Gastrointestinal: reports: denies history Obstetrical/Gynecological: reports: denies history Genitourinary: reports: denies history Musculoskeletal: reports: denies history Neurological: reports: dementia Endocrine/Immune: reports: denies history Other Conditions: reports: denies history - PRIOR SURGERIES/PROCEDURES Surgical/Procedure History: reports: appendectomy, CABG, other (ear implants) - IMMUNIZATION STATUS Childhood Immunizations: See Nurse Assessment Flu Vaccine: See Nurse Assessment - FAMILY HISTORY Family History: reviewed, not pertinent Physical Exam-General - PHYSICAL EXAM-ADULT Initial Vital Signs Reviewed: Yes - CONSTITUTIONAL General Appearance: alert, no apparent distress, other (hard of hearing) - EYES Eyes: PERRL/EOMI - HEAD, EARS, NOSE, MOUTH & THROAT HENMT: normocephalic/atraumatic - NECK Neck: supple, normal inspection - RESPIRATORY Respiratory: chest non-tender, lungs clear, normal breath sounds - CARDIOVASCULAR Cardiovascular: normal peripheral pulses, regular rate, rhythm, systolic murmur - GASTROINTESTINAL (ABDOMEN) Abdominal Exam: normal bowel sounds, non tender, soft - MUSCULOSKELETAL Back Exam: normal inspection Extremity: normal range of motion, normal inspection, no pedal edema - SKIN Integumentary: warm/dry, pallor - NEUROLOGIC Neurologic: grossly normal - PSYCHIATRIC Psych/Mental Status: disoriented x 3 Progress - PLAN OF CARE/RESULTS Progress/Plan/Lab Results: Vital Signs - 8 hr 02/17/19 06:27 Temperature 97.4 F L Pulse Rate 75 Respiratory Rate 16 Blood Pressure 119/64 O2 Sat by Pulse Oximetry 89 L Orders Category Date Time Status CHEST-PORTABLE [RAD] Stat Exams 02/17/19 06:49 Ordered CBC WITH ELECTRONIC DIFF [HEME] Stat Lab 02/17/19 06:49 Uncollected COMPREHENSIVE METABOLIC PANEL [CHEM] Stat Lab 02/17/19 06:49 Uncollected FREE T4 Stat Lab 02/17/19 06:51 Uncollected LACTATE, PLASMA [CHEM] Stat Lab 02/17/19 06:49 Uncollected LIPASE [CHEM] Stat Lab 02/17/19 06:49 Uncollected OCCULT BLOOD SCREENING [STOOL] Stat Lab 02/17/19 06:49 Uncollected PROTIME WITH INR [COAG] Stat Lab 02/17/19 06:49 Uncollected PTT [COAG] Stat Lab 02/17/19 06:49 Uncollected TROPONIN T Stat Lab 02/17/19 06:49 Uncollected TSH Stat Lab 02/17/19 06:51 Uncollected TYPE & SCREEN [BBK] Stat Lab 02/17/19 06:49 Uncollected URINALYSIS W/POSS RFLX CULT [URINALYSIS] Stat Lab 02/17/19 06:51 Uncollected Result Diagrams: 02/17/19 06:35 02/17/19 07:45 - CONSULTS/PCP/HOSPITALIST Notification #1 *Consult/PCP/Hospitalist*: Marilin YOU[employer] WORKER for Dr Strauss Time Discussed: 08:30 Consult Disposition: Will see in ED, Admit - CHANGE OF SHIFT REPORT (ED Provider) 1 Report Given and Care Transferred to:: Dr Zamora Time of Transfer: 07:00 Items Pending: Labs Departure - Departure Date of Disposition Decision: 02/17/19 Time of Disposition Decision: 08:30 DIAGNOSIS: Pneumonia, Vomiting, Hypoxia, Dementia Disposition: ADMITTED INPATIENT 09 Certified Medical Emergency: Emergent Condition: Fair Referrals and Follow-Ups: Glenn Blanco MD [Primary Care Provider] - - Critical Care Note This patient required my direct & personal management of CC.: No Attestation - Physician/ ELLIOTT Attestation Patient care was provided by Advanced Practice Provider:: No The physician spent face to face time with patient:: Yes Advanced Practice Provider documentation review:: Supervising physician onsite and consulted in the evaluation and care of this patient. The physician did have a face to face encounter with the patient.
[2019-02-17 07:21] LABS: BASO# 0.02 X1000 (0.0-0.2); BASO% 0.4 % (0.0-0.8); EOS% 1.8 % (0.0-10.0); HEMATOCRIT 38.1 % (42.0-52.0); HEMOGLOBIN 11.6 g/dL (14.0-18.0); IMM GRAN# 0.02 X1000 (0.0-0.04); IMM GRAN% 0.4 % (0.0-0.5); LYMPH# 1.28 X1000 (1.2-3.4); LYMPH% 22.9 % (20.5-51.1); MCH 26.9 PG (27-31); MCHC 30.4 g/dL (33-37); MCV 88.2 FL (81-99); MONO# 0.45 X1000 (0.11-0.59); MONO% 8.1 % (1.7-9.3); NEUT# 3.72 X1000 (1.4-6.5); NEUT% 66.4 % (42.2-75.2); PLT 267 X1000 (130-400); RBC 4.32 XMIL (4.7-6.1); RDW 15.6 % (11.5-14.5); WBC 5.59 X1000 (4.8-10.8)
--- NOTE | 2019-02-17 07:22 | Diag Imaging Result Doc PS360 ---
EXAM: CHEST-PORTABLE INDICATION: AMS TECHNIQUE: One view COMPARISON: 01/13/2019 FINDINGS: There is a right upper lobe airspace consolidation indicating pneumonia and possible mild perihilar consolidation on the left. This was also seen on the previous study but it is milder on the current study. There is no discrete pleural fluid collection or pneumothorax. There are stable CABG changes. Cardiac silhouette and central vasculature are unremarkable, otherwise. IMPRESSION: Right upper lobe pneumonia and possible perihilar pneumonia on the left. Electronically signed by Richard Howard 02/17/2019 7:19 AM
[2019-02-17] MEDS ORDERED: ROCEPHIN 1 GM in NS 50 ML IV ONE (07:26)
[2019-02-17 07:27] LABS: INR 1.22; PROTIME 15.6 Seconds (11.0-16.0)
[2019-02-17 07:28] LABS: PTT 34.7 Seconds (22.3-41.8)
[2019-02-17 08:14] LABS: AGAP 11; ALBUMIN 3.4 g/dL (3.5-5.0); ALKALINE PHOSPHATASE 68 U/L (32-122); BUN 21 mg/dL (8-22); CALCIUM 8.9 mg/dL (8.8-10.2); CHLORIDE 100 mmol/L (98-107); COSMO 274; CREATININE 1.1 mg/dL (0.7-1.2); ESTIMATED GFR > 60; GLUCOSE 109 mg/dL (70-104); GOT 19 U/L (10-34); GPT 7 U/L (10-44); LIPASE 14 U/L (13-60); POTASSIUM 5.2 mmol/L (3.5-5.1); SODIUM 135 mmol/L (136-145); TCO2 24 mmol/L (25-35); TOTAL BILIRUBIN 0.21 mg/dL (0.20-1.00); TOTAL PROTEIN 6.7 g/dL (6.3-8.3)
[2019-02-17 09:20] LABS: FREE T4 0.83 ng/dL (0.93-1.70)
--- NOTE | 2019-02-17 09:51 | HISTORY AND PHYSICAL ---
PRIMARY CARE PHYSICIAN: Dr. Glenn Blanco. CHIEF COMPLAINT: Per half-way staff, stated the patient had coffee-grounds emesis around 5 a.m. this morning, and O2 sat was noted to be 84% on room air. HISTORY OF PRESENTING ILLNESS: This is an 88-year-old male who presents to [facility] via EMS after half-way staff reported that he had coffee-grounds emesis around 5 a.m. this morning, and his O2 sat was found to be 84% on room air. He was recently in the hospital from 01/09/2019 to 01/15/2019 with an ESBL- positive Escherichia coli, healthcare-associated pneumonia, and an acute hypoxemic respiratory failure. His workup today showed a white blood cell count of 5.59, O2 sat on arrival in the emergency room was 89% on room air. Again, half-way and EMS reported it was 84% on room air when they arrived. His chest x-ray showed a right upper lobe pneumonia and possible perihilar pneumonia on the left. His stool for occult blood was negative. Hemoglobin and hematocrit were stable at 11.6 and 38.1, but he will be admitted for further evaluation and treatment. PAST MEDICAL HISTORY: Dementia, atrial fibrillation, coronary artery disease, hyperlipidemia, COPD, and an ESBL-positive Escherichia coli pneumonia in December of this year. PAST SURGICAL HISTORY: Appendectomy, CABG, and ear implants. FAMILY HISTORY: Reviewed and noncontributory. SOCIAL HISTORY: Currently resides at [facility]. Denies any tobacco, alcohol, or illicit drug use. ALLERGIES: No known drug allergies. HOME MEDICATIONS: Tylenol 325 mg p.o. every 4 to 6 hours p.r.n. Will hold Eliquis 2.5 mg p.o. b.i.d. Calcium 600 plus vitamin D 1 p.o. daily, Colace 100 mg p.o. b.i.d., Lexapro 10 mg p.o. daily, Mucinex DM 1 p.o. b.i.d., ipratropium/albuterol sulfate every 4 hours p.r.n. will be held, Culturelle 1 capsules p.o. t.i.d. before meals, Ensure 1 can p.o. daily, multivitamin with folic acid 400 mcg p.o. daily, oxybutynin 5 mg p.o. b.i.d., Klor-Con 10 mEq p.o. every other day, Seroquel 25 mg p.o. at bedtime, simvastatin 20 mg p.o. at bedtime, Bactrim DS 1 p.o. b.i.d. is being held. IMAGING AND LABORATORY DATA: Laboratory data showed a white blood cell count of 5.59, hemoglobin 11.6, hematocrit 38.1, platelets 267,000. PT and INR of 15.6 and 1.22. Sodium 135, potassium 5.2, chloride 100, CO2 of 24, BUN of 21, creatinine 1.1, glucose 109. Cardiac enzymes were negative. Lipase of 14. Plasma lactate of 1.2. Stool for occult blood was negative. Blood cultures x2 are pending. Chest x-ray showed a right upper lobe pneumonia and possible perihilar pneumonia on the left. REVIEW OF SYSTEMS: Denies any fever, chills, blurred vision, dizziness, chest pain. Has had a cough, shortness of breath. Denied any abdominal pain. Vomited some coffee- grounds emesis at facility this morning. Denied any nausea currently or constipation, diarrhea, burning or hurting with urination. PHYSICAL EXAMINATION: VITAL SIGNS: On arrival, had a temperature of 97.4 degrees, pulse 75, respirations 16, blood pressure 119/64, and was saturating 89% on room air, currently on 2 L at 97%. GENERAL: This is an 88-year-old male who is lying in the bed, is very hard of hearing, but answers questions appropriately. Daughter is also noted to be at bedside. HEENT: Normocephalic, atraumatic. Normal ENT inspection. Oropharynx and nares are clear. Eyes: Pupils are equal, round, reactive to light and accommodation. Extraocular movements are intact. NECK: Normal inspection. Normal range of motion. LUNGS: Clear to auscultation bilaterally with equal lung expansion and chest wall movement. HEART: Regular rate and rhythm. No murmurs, rubs, or gallops. ABDOMEN: Soft, nontender, nondistended. Bowel sounds are present x4 quadrants. MUSCULOSKELETAL: Has 5/5 strength x4 extremities. NEUROLOGICAL: The cranial nerves II through XII appear grossly intact. ASSESSMENT: 1. Upper gastrointestinal bleed. 2. Right upper lobe pneumonia. 3. Acute hypoxemic respiratory failure. 4. Atrial fibrillation, history of, currently rate controlled. 5. Coronary artery disease, aware. PLAN: He is being admitted to the medical unit, placed on telemetry, O2 per protocol, healthy heart diet, incentive spirometry, SCDs for DVT prophylaxis. Will do serial hemoglobin and hematocrit every [address] on Protonix 40 mg IV every 12 hours, Rocephin 1 gram IV every 24 hours, azithromycin 500 IV every 24 hours. Recheck a CBC and BMP in the a.m., and continue home medications as previously identified, and again will hold his Eliquis. Further orders after seen by attending. Dictated by DAVIDA Garrett for Leo Strauss MD cc: DAVIDA Garrett MD Jay Pohl, MD I agree with most components of history, physical, assessment and plan. A separate addendum has been dictated. [facility]
[2019-02-17] MEDS ORDERED: ZOFRAN IV PRN (09:56)
[2019-02-17] MEDS ORDERED: ROCEPHIN 1 GM in NS 50 ML IV SCH (09:56)
[2019-02-17] MEDS ORDERED: ZITHROMAX 500 MG/NS 500 MG/250 ML IVPB IV SCH (09:56)
[2019-02-17] MEDS ORDERED: LACTOSE REDUCED FOOD PO SCH (09:56)
[2019-02-17] MEDS ORDERED: TYLENOL PO PRN ×2 (09:56)
[2019-02-17 10:14] LABS: TSH 5.49 uIUmL (0.27-4.20)
[2019-02-17 10:48] LABS: HEMOGLOBIN 11.6 g/dL (14.0-18.0)
[2019-02-17] MEDS ORDERED: CALMOSEPTINE OINTMENT TOP PRN (11:31)
[2019-02-17] MEDS: DUONEB (A & A) INH SCH ×4 (11:36→23:30)
[2019-02-17] MEDS: PROTONIX IV SCH ×2 (12:10→22:06)
[2019-02-17] MEDS: SODIUM CHLORIDE 0.9% INJ SCH ×2 (12:10→22:06)
[2019-02-17] MEDS: CALTRATE 600 + D PO SCH (12:11)
[2019-02-17] MEDS: CULTURELLE PO SCH ×2 (12:11→18:11)
[2019-02-17] MEDS: KLOR-CON PO SCH (12:11)
[2019-02-17] MEDS: MUCINEX DM PO SCH ×2 (12:11→22:06)
[2019-02-17] MEDS: LEXAPRO PO SCH (12:12)
[2019-02-17] MEDS: THERA M PLUS PO SCH (12:12)
[2019-02-17] MEDS: DITROPAN PO SCH ×2 (12:12→22:06)
[2019-02-17] MEDS: COLACE PO SCH ×2 (12:12→22:06)
[2019-02-17] MEDS: NS 1,000 ML IV SCH (12:16)
--- NOTE | 2019-02-17 13:19 | HISTORY AND PHYSICAL ---
ADDENDUM: I agree with most components of history, physical, assessment, and plan. In brief, Mr. Zuniga is an 88-year-old man with past medical history of hearing impairment, dementia, atrial fibrillation, coronary artery disease status post CABG, recent episode of ESBL pneumonia in 12/2018 status post antibiotic therapy (last dose being on 01/25/2019), comes in with chief complaints of coffee-grounds emesis and hypoxia with saturation of 84%. In the emergency room, the patient was found to have oxygen saturation of 89%, so the hospitalist team was consulted for further management. SUBJECTIVE: At the time of my evaluation, the patient is occasionally coughing, and does not appear to be in any acute distress. OBJECTIVE: HEENT: Oral cavity is dry. Lungs: Air entry bilaterally equal. No wheeze, rhonchi, crackles. Cardiovascular: S1, S2 normal. There is a mid systolic ejection murmur. No rub or gallop. Abdomen: Soft, nontender. No lower extremity edema. Neurologic: He is alert. He is able to follow simple commands. He does have memory impairment. LABORATORY DATA: Suggestive of hemoglobin of 11.6, normal platelets, normal WBC count. His coagulation profile has been normal. He does have hyponatremia, hyperkalemia, normal kidney function, and hypothyroidism. ASSESSMENT AND PLAN: 1. Acute hypoxic respiratory failure. He may have had an episode of vomiting- related aspiration, which may have caused his hypoxia. Current chest x-ray does not suggest any new infiltrate, and previous infiltrates are decreasing. However, I am going to keep him on intravenous ertapenem prophylactically. I will follow up with chest x-ray tomorrow morning, and keep him on oxygen to maintain saturation more than 94% with albuterol/ipratropium nebulizer. 2. Suspected coffee-ground emesis. He was taking Eliquis for atrial fibrillation, which I will hold for now. I will give him intravenous Protonix twice daily, and will follow up with serial CBC. I will get abdominal Xray to evaluate for SBO vs constipation. 3. Others. He has history of coronary artery disease status post coronary artery bypass graft, dementia, atrial fibrillation. Plan of care discussed with the patient's daughter. All of her questions were answered. cc: MD BRITTNEE White
[2019-02-17] MEDS: INVANZ 1 GM/NS 1 GM/50 ML IVPB IV SCH (15:47)
[2019-02-17 17:24] LABS: HEMATOCRIT 35.3 % (42.0-52.0); HEMOGLOBIN 10.6 g/dL (14.0-18.0)
--- NOTE | 2019-02-17 20:44 | Diag Imaging Result Doc PS360 ---
EXAM: ABDOMEN FLAT/UPRIGHT HISTORY: [place] ground emesis. Evaluate for SBO/Constipatio TECHNIQUE: Two views COMPARISON: None. FINDINGS: There is a large amount of stool throughout the colon. No organomegaly. No foreign body. Moderate degenerative spine changes. IMPRESSION: Severe constipation Electronically signed by Alfonso Cespedes 02/17/2019 8:41 PM
[2019-02-17] MEDS: ZOCOR PO SCH (22:06)
[2019-02-17] MEDS: SEROQUEL PO SCH (22:06)
[2019-02-17 22:08] LABS: HEMATOCRIT 33.6 % (42.0-52.0); HEMOGLOBIN 10.3 g/dL (14.0-18.0)
[2019-02-18] MEDS: DUONEB (A & A) INH SCH ×6 (03:32→23:19)
[2019-02-18] MEDS: NS 1,000 ML IV SCH (05:54)
[2019-02-18] MEDS: CULTURELLE PO SCH ×2 (07:33→11:43)
[2019-02-18] MEDS: MIRALAX PO SCH ×4 (07:34→20:36)
[2019-02-18] MEDS: DULCOLAX PR SCH ×4 (08:14→20:36)
[2019-02-18] MEDS: PROTONIX IV SCH ×2 (09:42→22:15)
[2019-02-18] MEDS: SODIUM CHLORIDE 0.9% INJ SCH (09:42)
[2019-02-18] MEDS: LEXAPRO PO SCH (09:45)
[2019-02-18 10:25] LABS: BASO# 0.02 X1000 (0.0-0.2); BASO% 0.1 % (0.0-0.8); EOS# 0.06 X1000 (0.0-0.7); EOS% 0.4 % (0.0-10.0); HEMATOCRIT 33.4 % (42.0-52.0); IMM GRAN# 0.02 X1000 (0.0-0.04); IMM GRAN% 0.1 % (0.0-0.5); LYMPH# 0.92 X1000 (1.2-3.4); LYMPH% 6.8 % (20.5-51.1); MCHC 29.9 g/dL (33-37); MONO# 0.58 X1000 (0.11-0.59); MONO% 4.3 % (1.7-9.3); MPV 9.6 FL (7.4-10.4); NEUT# 11.89 X1000 (1.4-6.5); NEUT% 88.3 % (42.2-75.2); PLT 217 X1000 (130-400); RBC 3.71 XMIL (4.7-6.1); RDW 16.2 % (11.5-14.5); WBC 13.49 X1000 (4.8-10.8)
[2019-02-18] MEDS: CALTRATE 600 + D PO SCH (10:51)
[2019-02-18] MEDS: THERA M PLUS PO SCH (10:52)
[2019-02-18] MEDS: MUCINEX DM PO SCH ×2 (10:52→20:35)
[2019-02-18] MEDS: DITROPAN PO SCH ×2 (10:55→20:36)
[2019-02-18 10:56] LABS: BANDS 4 % (0-1); LYMPHS 10 % (21-51); SEGS 86 % (42-75)
[2019-02-18] MEDS: COLACE PO SCH ×2 (10:56→22:16)
[2019-02-18 11:22] LABS: AGAP 10; BUN 14 mg/dL (8-22); CALCIUM 8.3 mg/dL (8.8-10.2); CHLORIDE 104 mmol/L (98-107); COSMO 278; CREATININE 1.1 mg/dL (0.7-1.2); ESTIMATED GFR > 60; GLUCOSE 103 mg/dL (70-104); SODIUM 139 mmol/L (136-145); TCO2 25 mmol/L (25-35)
[2019-02-18 11:38] LABS: URINE SOURCE CATH
[2019-02-18 11:52] LABS: BILIRUBIN URINE NEGATIVE (NEGATIVE); BLOOD URINE MODERATE (NEGATIVE); COLOR YELLOW; GLUCOSE URINE NEGATIVE (NEGATIVE); KETONE URINE NEGATIVE (NEGATIVE); LEUKOCYTES URINE SMALL (NEGATIVE); NITRITE URINE NEGATIVE (NEGATIVE); PROTEIN URINE 30 mg/dL (NEGATIVE); SP GRAVITY URINE 1.017; TURBIDITY URINE HAZY (CLEAR); UROBILINOGEN URINE NORMAL (NORMAL)
[2019-02-18 11:53] LABS: UR EPITHELIAL CELLS <10 /HPF (<10); URINE BACTERIA NEGATIVE /HPF; URINE RBC TNTC /HPF (<10); URINE WBC 20-40 /HPF (<10)
[2019-02-18] MEDS: INVANZ 1 GM/NS 1 GM/50 ML IVPB IV SCH (12:21)
--- NOTE | 2019-02-18 14:28 | Diag Imaging Result Doc PS360 ---
EXAM: CHEST-2 VIEWS INDICATION: Follow up pneumonia TECHNIQUE: 2 views COMPARISON: 02/17/2019 FINDINGS: Inspiration is suboptimal. There has been interval worsening of consolidations bilaterally. The right upper lobe consolidation is stable. However, there has been increase in opacity at both lung bases as compared to the previous study, more notably on the left. There is now probably a left pleural effusion as well. Cardiac silhouette is stable. IMPRESSION: Interval worsening as described. Electronically signed by Richard Howard 02/18/2019 2:25 PM
--- NOTE | 2019-02-18 15:34 | EKG Report ---
Test Performed on : 02/18/2019 3:25:53 PM Test Reason : Base line EKG. H/o CAD Blood Pressure : / mmHG Vent. Rate : 080 BPM Atrial Rate : 080 BPM P-R Int : 172 ms QRS Dur : 076 ms QT Int : 376 ms P-R-T Axes : 081 058 075 degrees QTc Int : 433 ms Sinus rhythm. with premature supraventricular complexes. Otherwise normal ECG When compared with ECG of 07-JAN-2019 20:54, (Unconfirmed) premature supraventricular complexes. are now present Confirmed by Babak Chavarria MD ([id number]) on 02/19/2019 9:00:30 AM
--- NOTE | 2019-02-18 15:51 | PROGRESS NOTE ---
DATE: 02/18/2019 INTERVAL HISTORY: No acute events overnight. He has had several episodes of coffee-ground emesis. His hemoglobin has only slightly dropped. He refused to take all of his medications in the morning time. The patient's family is at bedside and they are trying to persuade the patient to take his medication, however he is reluctant and a little grumpy today. SUBJECTIVE: He denies any complaints. Family states that after breathing treatment he does have episode of coughing. Otherwise, he is not coughing. CURRENT VITAL SIGNS: Suggest temperature of 99 degrees, pulse of 82, respiratory 18, blood pressure 99/52. He is saturating 97% on 2 L nasal cannula. PHYSICAL EXAMINATION: General: Does not appear in acute distress. Oral cavity is moist. No pharyngeal congestion. He has decreased air entry in right inframammary region. No wheeze or rhonchi. S1, S2 normal. Irregularly irregular. No murmur, rub, or gallop. Abdomen: Obese, soft, nontender. Tympanic to percussion. No lower extremity edema. LABS: Suggestive of leukocytosis, normocytic anemia, normal platelet count. He also has normal electrolytes. Microbiology, stool occult blood test was negative. Blood cultures are in lab. ASSESSMENT AND PLAN: 1. Acute hypoxic respiratory failure with episode of ESBL pneumonia in December 2018 with worsening infiltrate. Continue intravenous ertapenem and I will follow up with CBC and based on that, I would consider adding intravenous vancomycin to his regimen. Continue oxygenation to maintain saturation more than 94%, albuterol ipratropium nebulization. 2. Coffee-ground emesis, likely in the setting of severe constipation and use of Eliquis. His hemoglobin has been stable. I will keep him on pantoprazole IV q. 12 hours. Continue to hold Eliquis and give him aggressive bowel regimen including MiraLAX, bisacodyl, and docusate. He has been refusing to take oral medication, so I will try to increase the frequency of bisacodyl. 3. He has history of coronary artery disease status post CABG and paroxysmal atrial fibrillation and hyperlipidemia. I will continue his home simvastatin; continue home quetiapine for agitation, which is his home medication. DISPOSITION: I will continue to monitor patient inside the hospital. Plan of care extensively discussed with the patient and his daughter at bedside. Her questions were satisfactorily answered. cc: Leo Strauss MD
[2019-02-18] MEDS: SEROQUEL PO SCH (20:35)
[2019-02-18] MEDS: ZOCOR PO SCH (20:36)
[2019-02-19] MEDS: NS 1,000 ML IV SCH (02:00)
[2019-02-19] MEDS: DUONEB (A & A) INH SCH ×5 (03:47→19:40)
[2019-02-19] MEDS: DULCOLAX PR SCH ×5 (04:27→21:45)
[2019-02-19 12:49] LABS: BASO# 0.01 X1000 (0.0-0.2); BASO% 0.1 % (0.0-0.8); EOS# 0.27 X1000 (0.0-0.7); EOS% 3.6 % (0.0-10.0); HEMATOCRIT 34.1 % (42.0-52.0); HEMOGLOBIN 10.2 g/dL (14.0-18.0); IMM GRAN# 0.02 X1000 (0.0-0.04); IMM GRAN% 0.3 % (0.0-0.5); LYMPH# 1.45 X1000 (1.2-3.4); LYMPH% 19.6 % (20.5-51.1); MCH 26.9 PG (27-31); MCHC 29.9 g/dL (33-37); MONO# 0.46 X1000 (0.11-0.59); MONO% 6.2 % (1.7-9.3); MPV 9.9 FL (7.4-10.4); NEUT# 5.19 X1000 (1.4-6.5); NEUT% 70.2 % (42.2-75.2); PLT 220 X1000 (130-400); RBC 3.79 XMIL (4.7-6.1); RDW 16.1 % (11.5-14.5)
[2019-02-19] MEDS: PROTONIX IV SCH (13:18)
[2019-02-19] MEDS: MIRALAX PO SCH ×2 (13:19→20:26)
[2019-02-19] MEDS: SODIUM CHLORIDE 0.9% INJ SCH (13:19)
[2019-02-19] MEDS: DITROPAN PO SCH ×2 (13:19→20:26)
[2019-02-19] MEDS: MUCINEX DM PO SCH ×2 (13:19→20:26)
[2019-02-19] MEDS: CALTRATE 600 + D PO SCH (13:20)
[2019-02-19] MEDS: LEXAPRO PO SCH (13:20)
[2019-02-19] MEDS: THERA M PLUS PO SCH (13:20)
[2019-02-19] MEDS: KLOR-CON PO SCH (13:20)
[2019-02-19] MEDS: COLACE PO SCH ×2 (13:20→20:26)
[2019-02-19 13:22] LABS: AGAP 12; BUN 12 mg/dL (8-22); CALCIUM 8.5 mg/dL (8.8-10.2); CHLORIDE 103 mmol/L (98-107); COSMO 274; ESTIMATED GFR > 60; GLUCOSE 70 mg/dL (70-104); MAGNESIUM 2.1 mg/dL (1.5-2.7); POTASSIUM 4.3 mmol/L (3.5-5.1); SODIUM 138 mmol/L (136-145); TCO2 23 mmol/L (25-35)
[2019-02-19] MEDS: INVANZ 1 GM/NS 1 GM/50 ML IVPB IV SCH (14:45)
[2019-02-19] MEDS ORDERED: HALDOL IV PRN (16:20)
--- NOTE | 2019-02-19 19:40 | Diag Imaging Result Doc PS360 ---
EXAM: CHEST-2 VIEWS INDICATION: Follow up pneumonia TECHNIQUE: 2 views COMPARISON: 02/18/2019 FINDINGS: The right upper lobe consolidation is approximately stable. However, there has been improvement of the consolidations at both lower lung zones. No new consolidation is appreciated. Cardiac silhouette is essentially stable. IMPRESSION: Interval bilateral improvement as described. Electronically signed by Richard Howard 02/19/2019 7:38 PM
--- NOTE | 2019-02-19 20:22 | PROGRESS NOTE ---
DATE: 02/19/2019 INTERVAL HISTORY: He was very combative and agitated today morning, and he required security personnel to help him calm down; however, after the family came by, he was more calm. He has not had any episodes of agitation. Since the family came by, he has not had any more episodes of vomiting. He has had 3 documented bowel movements. He has been started on full liquid diet, and he ate a little bit of applesauce. SUBJECTIVE: At the time of my evaluation, he is sleepy. He is arousable to verbal stimuli. The patient's daughter is at bedside. OBJECTIVE: Vital signs: He has not had any fever. Temperature 98.1 degrees, pulse 76, respiratory rate 16, blood pressure 109/68, saturating 97% on room air. General: Does not appear in any acute distress. HEENT: Oral cavity is moist. Lungs: Air entry bilaterally equal. No wheeze, rhonchi or crackles. Cardiovascular: S1, S2 normal. No murmur or gallop. Abdomen: Soft, scaphoid. Nontender. Extremities: No lower extremity edema. LABORATORY DATA: Suggestive of no leukocytosis, normocytic anemia, normal platelet count, normal electrolytes. Stool occult blood test was negative, and urine culture and blood culture were unremarkable. IMAGING: Chest x-ray performed yesterday had interval worsening, and repeat chest x-ray is pending. ASSESSMENT AND PLAN: 1. Acute hypoxic respiratory failure with episode of ESBL pneumonia in December 2018. Continue intravenous ertapenem and follow-up repeat chest x-ray. His CBC is better today. Continue oxygenation to maintain saturation more than 94%, as well as albuterol ipratropium nebulization. If the chest x-ray suggests improvement, I may consider discontinuing antibiotics at the time of discharge since his WBC is normal. He is not really symptomatic of it at the moment; however, if the chest x-ray is bad, then he may need oral antibiotics at the time of discharge. 2. Coffee-ground emesis in the setting of severe constipation. Stool occult blood test was negative. His hemoglobin has been stable. I will change his pantoprazole to oral and resume Eliquis tomorrow. 3. Severe constipation. Continue MiraLAX, bisacodyl suppository with docusate and start him on full liquid diet. 4. Others. He has history of coronary artery disease status post CABG and paroxysmal atrial fibrillation with hyperlipidemia. I will continue his home simvastatin, and I will resume his Eliquis tomorrow. 5. History of episodes of agitation, likely age-related cognitive impairment. I will continue him on quetiapine, escitalopram, and will give him haloperidol as needed. DISPOSITION: Depending on his chest x-ray, I would anticipate discharge in next 24 hours. Plan of care discussed with the patient's daughter. Her questions have been answered. cc: Leo Strauss MD
[2019-02-19] MEDS: SEROQUEL PO SCH (20:26)
[2019-02-19] MEDS: ZOCOR PO SCH (20:26)
[2019-02-19] MEDS ORDERED: ELIQUIS PO SCH (21:00)
[2019-02-19] MEDS: ELIQUIS PO SCH (21:42)
[2019-02-20] MEDS: DULCOLAX PR SCH ×2 (03:13→10:27)
[2019-02-20] MEDS: DUONEB (A & A) INH SCH ×3 (03:29→12:03)
[2019-02-20] MEDS ORDERED: PRILOSEC PO SCH (07:00)
[2019-02-20 08:08] VITALS: BP 114/59
[2019-02-20] MEDS: ELIQUIS PO SCH (10:26)
[2019-02-20] MEDS: COLACE PO SCH (10:26)
[2019-02-20] MEDS: LEXAPRO PO SCH (10:26)
[2019-02-20] MEDS: MUCINEX DM PO SCH (10:27)
[2019-02-20] MEDS: THERA M PLUS PO SCH (10:27)
[2019-02-20] MEDS: MIRALAX PO SCH (10:27)
[2019-02-20] MEDS: CALTRATE 600 + D PO SCH (10:27)
[2019-02-20] MEDS: DITROPAN PO SCH (10:27)
--- NOTE | 2019-02-20 12:13 | DISCHARGE SUMMARY ---
ADMISSION DATE: 02/17/2019 DISCHARGE DATE: 02/20/2019 DISCHARGE DISPOSITION: retirement facility at [facility]. DISCHARGE CONDITION: Hemodynamically stable. He is saturating 92% on room air and 96% on 1 to 2 L nasal cannula. He has had multiple bowel movements. He has not had any vomiting in the last almost 48 hours. He is eating a full liquid diet. He is not coughing and does not have leukocytosis. DISCHARGE DIAGNOSES: 1. Acute hypoxic respiratory failure due to aspiration pneumonia affecting right upper lobe and bilateral lower lobes. 2. Coffee-ground emesis due to fecal impaction and severe constipation. 3. Recent history of extended spectrum beta-lactamase pneumonia. 4. Dementia with behavioral disturbance. OTHER DIAGNOSES: 1. History of coronary artery disease status post CABG. 2. History of paroxysmal atrial fibrillation on Eliquis. 3. History of hyperlipidemia. 4. History of extended spectrum beta-lactamase pneumonia in December 2018. 5. Hearing impairment. DISCHARGE MEDICATIONS: 1. Quetiapine 25 mg at nighttime. 2. Simvastatin 20 mg at nighttime. 3. Acetaminophen 325 mg every 4 to 6 hours as needed for pain. 4. Calcium carbonate/vitamin D 1 tablet daily. 5. Oxybutynin 5 mg b.i.d. 6. Ensure supplements daily. 7. Albuterol ipratropium nebulization 3 mL inhaled every 4 to 6 hours as needed for shortness of breath. 8. Escitalopram 10 mg daily. 9. Multivitamin with folic acid 1 tablet daily. 10. Doxycycline 100 mg b.i.d. for 3 days. 11. Dulcolax 10 mg rectally every 12 hours. The dose needs to be adjusted based with a goal of 1 to 2 soft formed bowel movements a day. 12. MiraLAX 17 g b.i.d. The dose needs to be adjusted based on number of bowel movements, to have 1 to 2 soft bowel movements a day. 13. Apixaban 2.5 mg b.i.d. 14. Omeprazole 20 mg daily. VITAL SIGNS AT THE TIME OF DISCHARGE: At the time of discharge, temperature of 98.6 degrees, pulse 73, respiratory rate 19, blood pressure 114/59, saturating 93% on room air. PHYSICAL EXAMINATION: General: He is drowsy but easily arousable. HEENT: Oral cavity is dry. Lungs: Air entry bilaterally equal. No wheeze, rhonchi, crackles. Cardiovascular: S1, S2 normal. No murmur or gallop. Appears irregular. Abdomen: Soft, nontender, tympanic to percussion. Extremities: No lower extremity edema. Neurologic: He was alert. He was following simple commands though he had intermittent confusion. The patient's family was at bedside. SIGNIFICANT LABORATORY DATA ON DISCHARGE: On day 2 of presentation, his WBC was 13,000, which improved to 7.4 at the time of discharge. His hemoglobin is 10.2, platelets of 222,000. INR was 1.2, PTT was 34. His potassium is 4.3, BUN 12, creatinine of 1. His calcium was 8.5, magnesium 2.1. Urinalysis had 20 to 40 WBCs. However, urine culture and blood culture did not have any growth. Stool occult blood test was negative. SIGNIFICANT IMAGING DURING HOSPITAL ADMISSION.: On abdominal x-ray on presentation, had severe constipation. Chest x-ray on 02/18/2019 had bilateral worsening consolidation at both lung bases compared to previous study. The right upper lobe opacity was stable. Chest x-ray on 02/19/2019 had interval bilateral improvement. EKG on presentation, sinus rhythm with premature supraventricular complexes, otherwise normal. HOSPITAL COURSE SUMMARY: Mr. Zuniga is an 88-year-old man who presented on 02/17/2019 with chief complaint of coffee-ground emesis and hypoxia with saturation of 84%. He is a long- term retirement facility resident and was recently treated for ESBL pneumonia. In the emergency room, he was found to have oxygen saturation of 89% on room air, so hospitalist team was consulted for further management. He was admitted with cardiac telemetry unit and abdominal x-ray had shown severe constipation. It was thought his coffee-grounds emesis was likely because of fecal impaction, and he was started on aggressive bowel regimen with MiraLAX and bisacodyl suppositories, which resolved his constipation, and he did not have any more vomiting. His stool occult blood test was negative. So, his Eliquis initially which was held, was restarted at the time of discharge. Regarding his hypoxia, the chest x-ray had worsening bilateral infiltrate. He was started on intravenous ertapenem. Repeat chest x-ray had suggested significant improvement so his antibiotics will be changed to oral doxycycline and he would have outpatient ID follow-up. At the time of discharge, plan of care was discussed with the patient and his daughter. All of their questions were answered and they were advised to have follow up with infectious disease doctor in 2 weeks. TIME SPENT: More than 30 minutes spent discharging the patient. cc: Leo Strauss MD
[2019-02-20] MEDS ORDERED: SEPTRA DS PO SCH (21:00)
[2019-02-20] MEDS ORDERED: ELIQUIS PO SCH (21:00)
== END 2019-02-20 14:28 | DRG 177 ==
LOC: SUPCPDRO → ED 06:16 → EDIPHOLD 09:07 → 3N 11:11
PROVIDERS: ATTEND Internal Medicine

== ENCOUNTER 2019-02-28 15:08 | Inpatient (IN) ==
[2019-02-28] MEDS ORDERED: DUONEB (A & A) INH ONE (15:32)
[2019-02-28 15:48] LABS: BASO# 0.01 X1000 (0.0-0.2); BASO% 0.1 % (0.0-0.8); EOS# 0.06 X1000 (0.0-0.7); EOS% 0.6 % (0.0-10.0); HEMATOCRIT 34.2 % (42.0-52.0); IMM GRAN# 0.02 X1000 (0.0-0.04); IMM GRAN% 0.2 % (0.0-0.5); LYMPH# 1.36 X1000 (1.2-3.4); LYMPH% 14.5 % (20.5-51.1); MCH 26.4 PG (27-31); MCHC 29.2 g/dL (33-37); MCV 90.2 FL (81-99); MONO# 0.67 X1000 (0.11-0.59); MONO% 7.1 % (1.7-9.3); MPV 9.5 FL (7.4-10.4); NEUT# 7.29 X1000 (1.4-6.5); NEUT% 77.5 % (42.2-75.2); PLT 277 X1000 (130-400); RBC 3.79 XMIL (4.7-6.1); RDW 15.8 % (11.5-14.5); WBC 9.41 X1000 (4.8-10.8)
[2019-02-28 16:09] LABS: AGAP 13; ALB/GLOB RATIO 0.8; ALBUMIN 3.2 g/dL (3.5-5.0); ALKALINE PHOSPHATASE 70 U/L (32-122); BUN 19 mg/dL (8-22); CALCIUM 8.3 mg/dL (8.8-10.2); CHLORIDE 102 mmol/L (98-107); COSMO 288; ESTIMATED GFR > 60; GLUCOSE 175 mg/dL (70-104); GOT 14 U/L (10-34); GPT 6 U/L (10-44); POTASSIUM 4.6 mmol/L (3.5-5.1); SODIUM 141 mmol/L (136-145); TCO2 26 mmol/L (25-35); TOTAL BILIRUBIN 0.24 mg/dL (0.20-1.00)
--- NOTE | 2019-02-28 16:26 | Diag Imaging Result Doc PS360 ---
EXAM: CHEST-PORTABLE - 02/28/2019 HISTORY: cough TECHNIQUE: Portable chest COMPARISON: 02/19/2019 FINDINGS: Heart size appears upper normal. There are sternal wires from previous surgery again seen. There is been interval decrease in right upper lobe consolidation. There is stable mild prominence of left lower lung markings. There is subsegmental atelectasis at the left base. There is no substantial pleural effusion or pneumothorax identified. IMPRESSION: Interval decrease in right upper lobe infiltrate. Stable mild prominence of left lower lung markings. Mild atelectasis at left base. Electronically signed by Home Hammer 02/28/2019 4:23 PM
[2019-02-28 16:32] LABS: BILIRUBIN URINE NEGATIVE (NEGATIVE); BLOOD URINE NEGATIVE (NEGATIVE); COLOR YELLOW; GLUCOSE URINE NEGATIVE (NEGATIVE); KETONE URINE NEGATIVE (NEGATIVE); LEUKOCYTES URINE NEGATIVE (NEGATIVE); NITRITE URINE NEGATIVE (NEGATIVE); PROTEIN URINE 30 mg/dL (NEGATIVE); SP GRAVITY URINE 1.029; TURBIDITY URINE CLEAR (CLEAR); URINE SOURCE CATH; UROBILINOGEN URINE NORMAL (NORMAL)
[2019-02-28 16:33] LABS: UR EPITHELIAL CELLS <10 /HPF (<10); URINE BACTERIA NEGATIVE /HPF; URINE RBC <10 /HPF (<10); URINE WBC <10 /HPF (<10)
[2019-02-28] MEDS ORDERED: NS 1,000 ML IV ONE (16:45)
[2019-02-28 16:55] LABS: INR 1.44; PROTIME 17.8 Seconds (11.0-16.0)
[2019-02-28 16:56] LABS: PTT 42.9 Seconds (22.3-41.8)
--- NOTE | 2019-02-28 17:09 | PROVIDER DOCUMENTATION ---
This chart was entered by Meena Hickman Scribe, acting as scribe for Deepika Bradley MD. HPI-Respiratory General - General Chief Complaint: Shortness of Breath Stated Complaint: SOB Time Seen by Provider: 02/28/19 15:20 Source: patient, EMS, [facility] records Allergies/Adverse Reactions: Patient Allergies Allergy/AdvReac Type Severity Reaction Status Date / Time No Known Allergies Allergy Verified 02/28/19 16:15 Home Medications: Home Medication List Medication Instructions Recorded Confirmed Last Taken Type Acetaminophen 325 mg PO Q4-6H PRN PRN 01/08/19 02/28/19 1 Day Ago History ~02/16/19 Calcium Carbonate/Vitamin D3 1 tab PO DAILY 01/08/19 02/28/19 1 Day Ago History [Calcium 600 + Vit D 400 Softgl] ~02/16/19 Escitalopram [Lexapro] 10 mg PO DAILY 01/08/19 02/28/19 1 Day Ago History ~02/16/19 Ipratropium/Albuterol Sulfate 3 ml INHALATION Q4H PRN PRN 01/08/19 02/28/19 1 Day Ago History [Iprat-Albut 0.5-3(2.5) mg/3 ml] ~02/16/19 Lactose-Reduced Food [Ensure 237 ml PO DAILY 01/08/19 02/28/19 1 Day Ago History Original] ~02/16/19 Multivitamin with Folic Acid 400 mcg PO DAILY 01/08/19 02/28/19 1 Day Ago History [Thera Tablet] ~02/16/19 Oxybutynin [Ditropan] 5 mg PO BID 01/08/19 02/28/19 1 Day Ago History ~02/16/19 Quetiapine [Seroquel] 25 mg PO QHS 01/08/19 02/28/19 1 Day Ago History ~02/16/19 Simvastatin 20 mg PO QHS 01/08/19 02/28/19 1 Day Ago History ~02/16/19 Apixaban [Eliquis] 2.5 mg PO BID #60 tab 01/15/19 02/28/19 1 Day Ago Rx ~02/16/19 Doxycycline 100 mg PO BID #6 tab 02/20/19 02/28/19 Unknown Rx Polyethylene Glycol 3350 [Miralax] 17 gm PO BID powder, packet 02/20/19 02/28/19 Unknown Rx Bisacodyl [Dulcolax] 10 mg MN Q12H PRN 02/28/19 02/28/19 Unknown History Omeprazole [Prilosec] 20 mg PO DAILY 02/28/19 02/28/19 Unknown History - History of Present Illness-Resp Nature of Presenting Problem: 88 y/o male presents to ED from [facility] via EMS with SOB and congestion onset yesterday. EMS reports they gave breathing treatment en route to ED. EMS states O2 sat was in the mid 80s on 2L upon their arrival at the [facility]. [facility] reported pt is not usually on home O2. Pt has hx COPD. Pt is alert and nontoxic. Quality of Pain: reports: none Severity in ED: reports: mild Onset/Duration: reports: 24 hours ago Timing: reports: still present Context: reports: other (hx COPD) Exposure: reports: other (hx COPD) Cough Quality/Degree: reports: no cough Episode Frequency: chronic episodes (hx COPD) Current Respiratory Medication Therapy: Initiated see nurses note Modifying Factors: improves with: oxygen Associated Symptoms: reports: shortness of breath, short of breath, other (sinus congestion) Similar Symptoms Previously?: Yes (hx COPD) Recently seen or treated by another doctor?: No Review of Systems - Adult - REVIEW OF SYSTEMS - ADULT Constitutional: denies: chills, fever Eyes: reports: no symptoms reported Ears, Nose, Mouth & Throat: reports: sinus problem. denies: epistaxis Cardiovascular: denies: chest pain, palpitations Respiratory: reports: shortness of breath. denies: cough Gastrointestinal: reports: no symptoms reported Genitourinary: reports: no symptoms reported Musculoskeletal: reports: no symptoms reported Integumentary: reports: no symptoms reported Neurological: reports: no symptoms reported Psychiatric: reports: no symptoms reported Endocrine: reports: no symptoms reported Hematologic/Lymphatic: reports: no symptoms reported Allergic/Immunologic: reports: no symptoms reported All Other Systems: Reviewed and Negative Past History - Adult - PAST MEDICAL HISTORY-ADULT Review of Records: reports: Old Records Reviewed, Nursing Assessment Review, Medications Reviewed Major Childhood Illnesses: reports: denies history Cardiovascular: reports: A-Fib, arrhythmia, CAD, hyperlipidemia Respiratory: reports: COPD Gastrointestinal: reports: denies history Obstetrical/Gynecological: reports: denies history Genitourinary: reports: kidney disease Musculoskeletal: reports: denies history Neurological: reports: dementia Endocrine/Immune: reports: denies history Other Conditions: reports: denies history - PRIOR SURGERIES/PROCEDURES Surgical/Procedure History: reports: appendectomy, CABG, other (ear implants) - IMMUNIZATION STATUS Childhood Immunizations: See Nurse Assessment Flu Vaccine: See Nurse Assessment - FAMILY HISTORY Family History: reviewed, not pertinent - SOCIAL HISTORY Smoking: non-smoker Substance Use: none/never Alcohol Use Frequency: never Living Situation: family Physical Exam-General - PHYSICAL EXAM-ADULT Initial Vital Signs Reviewed: Yes (HR 107; O2 sat 95% on 4L) - CONSTITUTIONAL General Appearance: appears well, alert, no apparent distress - EYES Eyes: PERRL/EOMI, pink conjunctivae - HEAD, EARS, NOSE, MOUTH & THROAT HENMT: normocephalic/atraumatic, moist mucous membranes, normal ENT inspection - NECK Neck: non-tender, full range of motion - RESPIRATORY Respiratory: chest non-tender, lungs clear, respiratory distress (mild), accessory muscle use. negative: normal breath sounds (course breath sounds bilaterally) - CARDIOVASCULAR Cardiovascular: tachycardia - GASTROINTESTINAL (ABDOMEN) Abdominal Exam: normal bowel sounds, non tender, soft - MUSCULOSKELETAL Back Exam: normal inspection, no CVA tenderness, no vertebral tenderness Extremity: normal range of motion, non-tender - SKIN Integumentary: normal color, warm/dry - NEUROLOGIC Neurologic: grossly normal - PSYCHIATRIC Psych/Mental Status: normal mood/affect, normal thought content, normal thought process - HEART Score HEART Score: History: Slightly Suspicious HEART Score: ECG: Non-Specific Repolarization Disturbance/LBBB/PM HEART Score: Age: > or = 65 Years HEART Score: Risk Factors for Atherosclerotic Disease: 1 or 2 Risk Factors Progress - PLAN OF CARE/RESULTS Progress/Plan/Lab Results: Vital Signs - 8 hr 02/28/19 15:18 02/28/19 15:21 02/28/19 16:01 Temperature 98.9 F Pulse Rate 99 H 98 H 93 H Respiratory Rate 18 20 17 Blood Pressure 99/82 99/82 115/66 O2 Sat by Pulse Oximetry 4 L 91 L 94 L 02/28/19 16:11 Temperature Pulse Rate 93 H Respiratory Rate 16 Blood Pressure O2 Sat by Pulse Oximetry 96 Laboratory Results - last 24 hr 02/28/19 02/28/19 02/28/19 15:26 15:26 15:26 WBC 9.41 RBC 3.79 L Hgb 10.0 L Hct 34.2 L MCV 90.2 MCH 26.4 L MCHC 29.2 L RDW Std Deviation 15.8 H Plt Count 277 MPV 9.5 Immature Gran % (Auto) 0.2 Neut % (Auto) 77.5 H Lymph % (Auto) 14.5 L Wilkin % (Auto) 7.1 Eos % (Auto) 0.6 Baso % (Auto) 0.1 Immature Gran # (Auto) 0.02 Neut # (Auto) 7.29 H Lymph # (Auto) 1.36 Wilkin # (Auto) 0.67 H Eos # (Auto) 0.06 Baso # (Auto) 0.01 PT INR PTT (Actin FS) Sodium 141 Potassium 4.6 Chloride 102 Carbon Dioxide 26 Anion Gap 13 BUN 19 Creatinine 1.0 Estimated GFR/1.73 m2 > 60 BUN/Creatinine Ratio 19 Glucose 175 H Calculated Osmolality 288 Calcium 8.3 L Total Bilirubin 0.24 AST 14 ALT 6 L Alkaline Phosphatase 70 Creatine Kinase Troponin T Vkw-G-Eulmavjqdsg Pept Total Protein 7.0 Albumin 3.2 L Globulin 3.8 Albumin/Globulin Ratio 0.8 Plasma Lactate 2.5 H Urine Source Urine Color Urine Turbidity Urine pH Ur Specific [place] Urine Protein Ur Glucose (Stick) Ur Ketones (Stick) Urine Blood Urine Nitrite Urine Bilirubin Urobilinogen Dipstick Urine Leukocytes Urine WBC (Auto) Urine RBC (Auto) U Epithel Cells (Auto) Urine Bacteria (Auto) 02/28/19 02/28/19 02/28/19 15:26 15:26 15:26 WBC RBC Hgb Hct MCV MCH MCHC RDW Std Deviation Plt Count MPV Immature Gran % (Auto) Neut % (Auto) Lymph % (Auto) Wilkin % (Auto) Eos % (Auto) Baso % (Auto) Immature Gran # (Auto) Neut # (Auto) Lymph # (Auto) Wilkin # (Auto) Eos # (Auto) Baso # (Auto) PT 17.8 H INR 1.44 PTT (Actin FS) 42.9 H Sodium Potassium Chloride Carbon Dioxide Anion Gap BUN Creatinine Estimated GFR/1.73 m2 BUN/Creatinine Ratio Glucose Calculated Osmolality Calcium Total Bilirubin AST ALT Alkaline Phosphatase Creatine Kinase 43 Troponin T Nic-W-Uhojwnntety Pept 590 H Total Protein Albumin Globulin Albumin/Globulin Ratio Plasma Lactate Urine Source Urine Color Urine Turbidity Urine pH Ur Specific [place] Urine Protein Ur Glucose (Stick) Ur Ketones (Stick) Urine Blood Urine Nitrite Urine Bilirubin Urobilinogen Dipstick Urine Leukocytes Urine WBC (Auto) Urine RBC (Auto) U Epithel Cells (Auto) Urine Bacteria (Auto) 02/28/19 02/28/19 15:26 16:24 WBC RBC Hgb Hct MCV MCH MCHC RDW Std Deviation Plt Count MPV Immature Gran % (Auto) Neut % (Auto) Lymph % (Auto) [place]kin % (Auto) Eos % (Auto) Baso % (Auto) Immature Gran # (Auto) Neut # (Auto) Lymph # (Auto) Wilkin # (Auto) Eos # (Auto) Baso # (Auto) PT INR PTT (Actin FS) Sodium Potassium Chloride Carbon Dioxide Anion Gap BUN Creatinine Estimated GFR/1.73 m2 BUN/Creatinine Ratio Glucose Calculated Osmolality Calcium Total Bilirubin AST ALT Alkaline Phosphatase Creatine Kinase Troponin T < 0.010 Irt-Q-Fmzidqirdqb Pept Total Protein Albumin Globulin Albumin/Globulin Ratio Plasma Lactate Urine Source CATH Urine Color YELLOW Urine Turbidity CLEAR Urine pH 6.0 Ur Specific [place] 1.029 Urine Protein 30 A Ur Glucose (Stick) NEGATIVE Ur Ketones (Stick) NEGATIVE Urine Blood NEGATIVE Urine Nitrite NEGATIVE Urine Bilirubin NEGATIVE Urobilinogen Dipstick NORMAL Urine Leukocytes NEGATIVE Urine WBC (Auto) <10 Urine RBC (Auto) <10 U Epithel Cells (Auto) <10 Urine Bacteria (Auto) NEGATIVE Orders Category Date Time Status Cardiac Monitoring DIRECTED Care 02/28/19 16:40 Active Notify MD of + Sepsis Screen NOW Care 02/28/19 16:40 Active Notify Physician As Ordered Care 02/28/19 16:40 Active Saline Loc NOW Care 02/28/19 15:32 Active CHEST-PORTABLE [RAD] Stat Exams 02/28/19 15:32 Completed BLOOD CULTURE [BLDCUL] Stat Lab 02/28/19 15:45 Results CBC WITH DIFF [HEME] Stat Lab 02/28/19 15:26 Completed CK PROFILE [SP CHEM] Stat Lab 02/28/19 15:26 Completed COMPREHENSIVE METABOLIC PANEL [CHEM] Stat Lab 02/28/19 15:26 Completed LACTATE, PLASMA [CHEM] Lab 02/28/19 17:26 Received LACTATE, PLASMA [CHEM] Lab 02/28/19 20:15 Uncollected LACTATE, PLASMA [CHEM] Stat Lab 02/28/19 15:26 Completed PRO B-NATRIURETIC PEPTIDE Stat Lab 02/28/19 15:26 Completed PROTIME WITH INR [COAG] Stat Lab 02/28/19 15:26 Completed PTT [COAG] Stat Lab 02/28/19 15:26 Completed TROPONIN T Stat Lab 02/28/19 15:26 Completed UA NIMS W/REFLEX CULT [URINALYSIS] Stat Lab 02/28/19 16:24 Completed 0.9% Sodium Chloride Inj [Ns] 1,000 ml Med 02/28/19 16:45 Active IV 999 mls/hr Albuterol 2.5MG/Ipratrop 0.5MG [Duoneb (A & A)] Med 02/28/19 15:32 Discontinued 9 ml INH NOW ONE Aerosol Treatments Routine Oth 02/28/19 15:33 Completed Aerosol Treatments Stat Ot 02/28/19 15:33 Completed Oxygen Device Stat Ot 02/28/19 16:40 Active Pulse Oximetry Stat Ot 02/28/19 15:32 Completed Result Diagrams: 02/28/19 15:26 02/28/19 15:26 - EKG 1 Time of EKG reading by physician:: 15:19 EKG Read and Signed by:: Deepika Bradley EKG Interpretation (*Must complete 3 of following elements*): Abnormal Rate: 105 Rhythm: Sinus tach with premature atrial complexes [place]: normal QRS: normal [place] Interval: normal ST Wave: non-specific ST changes - XRAY 1 XRAY Study: Chest Impression: See EMR Report ([facility] - [address] [place] [id number] [facility] - [address] [place] [address] Department of Imaging Patient: [facility] Date: 02/28/19#: [id number] : 1930DM Status: REG ERAcct#: [id number] Age/Sex: 88/MRoom/Bed: Loc: ED Ordering Physician: Deepika Bradley MD Family Physician: Glenn Blanco MD Reason for Procedure: cough Signed EXAM: CHEST- PORTABLE - 02/28/2019 HISTORY: cough TECHNIQUE: Portable chest COMPARISON: 02/19/2019 FINDINGS: Heart size appears upper normal. There are sternal wires from previous surgery again seen. There is been interval decrease in right upper lobe consolidation. There is stable mild prominence of left lower lung markings. There is subsegmental atelectasis at the left base. There is no substantial pleural effusion or pneumothorax identified. IMPRESSION: Interval decrease in right upper lobe infiltrate. Stable mild prominence of left lower lung markings. Mild atelectasis at left base. Electronically signed by Home Hammer 02/28/2019 4:23 PM 02/28/19 1623 Interpreting Physician: Home Hammer MD Dictated Date/Time: 02/28/19 1622 cc: Deepika Bradley MD; Glenn Blanco MD) - CONSULTS/PCP/HOSPITALIST Notification #1 *Consult/PCP/Hospitalist*: DAVIDA Hernández for hospitalist Reason/Comments: Dyspnea, COPD exacerbation Consult Disposition: Admit Departure - Departure Date of Disposition Decision: 02/28/19 Time of Disposition Decision: 17:23 DIAGNOSIS: COPD exacerbation Dyspnea Qualifiers: Dyspnea type: unspecified Qualified Code(s): R06.00 - Dyspnea, unspecified Disposition: ADMITTED INPATIENT 09 Certified Medical Emergency: Emergent Condition: Stable Additional Instructions: ED Follow Up Instructions: You have been treated by a care provider in the Emergency Department. These instructions are being provided to you so you can have an understanding of how to care for yourself upon discharge. Upon discharge from the Emergency Department, you are responsible for making arrangements for follow-up care by a physician of your choice. Take all prescribed medications as directed. Return to the Emergency Department immediately for any new or worsening symptoms. You may call the Physician Referral phone number at [phone] to obtain a list of Physicians who are taking new patients. Referrals and Follow-Ups: Glenn Blanco MD [Primary Care Provider] - Discharge Education: Chronic Obstructive Pulmonary Disease Exacerbation, Ea sy-to-Read, Shortness of Breath, Adult, Eaqq-te-Hieb - Critical Care Note This patient required my direct & personal management of CC.: No Attestation - Physician/ ELLIOTT Attestation Patient care was provided by Advanced Practice Provider:: No The physician spent face to face time with patient:: Yes Advanced Practice Provider documentation review:: Supervising physician onsite and consulted in the evaluation and care of this patient. The physician did have a face to face encounter with the patient. This chart was documented by the indicated scribe, (Meena Hickman, [place]) and accurately reflects the services I performed and decisions made by me, Deepika Bradley MD, as attested by the provider's signature.
[2019-02-28] MEDS ORDERED: TYLENOL PO PRN (17:52)
[2019-02-28] MEDS ORDERED: DUONEB (A & A) INH PRN (17:53)
[2019-02-28] MEDS ORDERED: INVANZ 1 GM/NS 1 GM/50 ML IVPB IV ONE (17:57)
[2019-02-28 18:25] LABS: ALLEN TEST YES; BE 2.4 mmoll (-3.0-3.0); BLOOD TYPE ARTERIAL; HCO3-(ACT) 26.7 mmoll (20.0-26.0); METHB 1.2 % (0.0-1.5); O2(CT) 12.3 mL/dL (15.0-23.0); PCO2(98.6) 37 mmHg (35-45); PO2(98.6) 57 mmHg (60-100); SAMPLE BLOOD; SAO2 94.2 % (95.0-100.0); THB 9.6 g/dL (11.5-17.4); pH(98.6) 7.46 (7.35-7.45)
[2019-02-28 18:27] LABS: MODALITY CANNULA
--- NOTE | 2019-02-28 18:48 | Diag Imaging Result Doc PS360 ---
EXAM: KUB ABDOMEN - 02/28/2019 HISTORY: constipation TECHNIQUE: Portable AP spine abdomen COMPARISON: 02/17/2019 FINDINGS: There is some generalized distention of colon and rectum by air and fecal debris. The amount of retained fecal debris appears decreased compared to prior. There is no substantial gaseous small bowel distention identified. IMPRESSION: Evidence of constipation, with some improvement compared to prior. Electronically signed by Home Hammer 02/28/2019 6:46 PM
--- NOTE | 2019-02-28 18:55 | HISTORY AND PHYSICAL ---
CHIEF COMPLAINT: Shortness of breath, cough, hypoxemia. HISTORY OF PRESENT ILLNESS: This is an 88-year-old gentleman with a past medical history of hearing impairment, dementia, atrial fibrillation, coronary artery disease, status post coronary artery bypass grafting with ESBL pneumonia in 12/2018. He comes in with complaints of increasing cough, shortness of breath and hypoxemia, having an O2 saturation in the mid 80s, on 2 L in the group home per EMS report. Mr. Zuniga was admitted to the hospital in 12/2018 for ESBL pneumonia. He was discharged on 10 days of Invanz. He presented back to the hospital on February 17 with acute hypoxic respiratory failure due to aspiration pneumonia as well as coffee-ground emesis due to fecal impaction and severe constipation. At this time he was discharged from the hospital on doxycycline 100 mg for 3 days. The is at the bedside at the time of my exam and she states that "he just hasn't got his strength back, and he's just not getting any better." PAST MEDICAL HISTORY: 1. Hearing impairment, status post implants. 2. Dementia. 3. Atrial fibrillation. 4. Coronary artery disease, status post CABG. 5. ESBL pneumonia in 12/2018. 6. Chronic constipation. 7. Chronic anticoagulation. PAST SURGICAL HISTORY: Appendectomy, coronary artery bypass graft and ear implants. FAMILY HISTORY: Unobtainable at this time. SOCIAL HISTORY: The patient resides at [facility], with no tobacco, alcohol or illicit drug use. ALLERGIES: No documented drug allergies. HOME MEDICATIONS: A list will be obtained by the nursing staff, and once verified we will restart as appropriate. LABORATORY DATA: WBC is 9.4 with hemoglobin 10, hematocrit 34.2, platelets of 277,000. Sodium 141, potassium 4.6, BUN 19, creatinine 1 with a glucose of 175. Lactate is 2.5. Urinalysis is essentially negative. Blood cultures are pending. DIAGNOSTIC DATA: Chest x-ray reveals interval decrease in right upper lobe infiltrate. Stable mild prominence of left lower lung markings. Mild atelectasis at left base. PHYSICAL EXAMINATION: GENERAL: This is an 88-year-old gentleman who is sitting up on the stretcher in the emergency room in mild distress. VITAL SIGNS: Blood pressure is 115/66 with a heart rate of 90, respirations are 18, temperature is 98.9 degrees oral with O2 saturations that are 91% to 94% on 4 L nasal cannula. HEENT: Head is normocephalic, atraumatic. Mucous membranes are dry. NECK: Supple, with trachea midline. CARDIOVASCULAR: Regular rate and rhythm. S1 and S2 are appreciated. PULMONARY: Breath sounds are diminished throughout. Chest rises and falls symmetrically with respiration, with some increased work of breathing noted. CARDIOVASCULAR: Regular rate and rhythm. S1 and S2 are appreciated. He has no lower extremity edema. Peripheral pulses are palpable x4 extremities. GASTROINTESTINAL: Abdomen is soft, nontender, nondistended with bowel sounds in all 4 quadrants. NEUROLOGIC: He is alert. He does follow simple commands, although he is hard of hearing. He does not have his hearing aids in. GASTROINTESTINAL: Abdomen is soft, nondistended, with bowel sounds in all 4 quadrants. NEUROLOGIC: He is alert. We are unable to assess further, as the patient does not have his hearing aids in and at this time he cannot hear us to follow commands. SKIN: Warm and dry. ASSESSMENT AND PLAN: 1. Acute hypoxemic respiratory failure. We will continue with supplemental oxygen. He will be placed in the intensive care unit for close monitoring. 2. Chronic obstructive pulmonary disease, [id number] exacerbation. DuoNeb q.4 hours and q.2 hours p.r.n., steroids to taper. 3. Acute hypoxemic respiratory failure. Supplemental oxygen. 4. Recent extended-spectrum beta-lactamase pneumonia. Invanz was ordered in the emergency room. He was given his first dose. We will continue and add Zyvox. We will consult Dr. Trevon Omalley at the 's request. We will order a sputum culture. We will check arterial blood gas in the morning along with a CBC and CMP. 5. Chronic constipation with a recent gastrointestinal bleed. We will check a KUB and we will continue his bowel regimen. 6. Atrial fibrillation, on chronic anticoagulation, rate controlled. We will continue his Eliquis. 7. Code status: Do Not Resuscitate/Allow Natural level 1. Further treatments pending hospital course. Dictated by DAVIDA Guevara for Garret Carey MD cc: DAVIDA Guevara MD
[2019-02-28] MEDS: ZYVOX 600 MG/D5W 600 MG/300 ML IVPB IV SCH (19:15)
[2019-02-28] MEDS: SOLU-MEDROL IV SCH (19:15)
--- NOTE | 2019-02-28 19:27 | HISTORY AND PHYSICAL ---
ADDENDUM: The patient seen and examined by me [id number]. All the laboratory, vital signs and images were reviewed. The patient was recent actually recently discharged on 02/20/2019 due to hypoxemic respiratory failure due to aspiration pneumonia affecting the right upper lobe and bilateral lower lobes, coffee-grounds emesis due to fecal impaction and severe constipation, recent history of ESBL pneumonia, dementia. Also, he has a history of coronary artery disease status post CABG, paroxysmal atrial fibrillation on Eliquis, hyperlipidemia, ESBL pneumonia since December 2018, and hearing impairment. The patient was brought to the emergency department via EMS with shortness of breath that apparently started yesterday. His daughter is at the bedside, and she is the power of assistant district attorney. His oxygen saturation was low. I do not have any ABGs at this moment, but these have been requested. His cough is really weak. He is not able to bring anything up. He is wheezing bilaterally, and he has a history of COPD. Apparently he is not on home O2, but at this moment he has been placed on nasal cannula 4 L. His blood pressure has been stable. The heart rate has been in the 90s and the respiratory rate in the low 20s. PHYSICAL EXAMINATION: On my physical exam, this patient is wheezing bilaterally. He seems to be in acute to moderate distress. Bilateral crackles and rhonchi. LABORATORY DATA: Leukocyte count is normal. He has a low hemoglobin at 10. His plasma lactate is elevated at 2.4. ASSESSMENT/PLAN: He will be placed in the ICU. We will put this patient on breathing treatments, antibiotics, steroids, and gastric protection. We will continue with his Eliquis twice a day. We will ask for a KUB in the morning. Blood culture has been sent already to the laboratory, pending a urine culture and sputum culture. I had a large conversation with the power of assistant district attorney which is the daughter. We discussed about his Advance Directive, and after 50 minutes we discussed the options, and she wants to keep this patient DO NOT RESUSCITATE level 1, and actually she looked for a document and showed me that this patient is DO NOT RESUSCITATE already. This patient seems to be remarkably sick at this moment, and this has been notified to the family. Like I said, we will transfer this patient to the ICU and we will start from there. We will give him some ice chips to see if to see if he is able to tolerate that, and go with clear liquid diet. cc: Garret Carey MD
[2019-02-28] MEDS: DUONEB (A & A) INH SCH ×4 (19:34→23:12)
[2019-02-28] MEDS: ZOCOR PO SCH (22:34)
[2019-02-28] MEDS: ELIQUIS PO SCH (22:34)
[2019-03-01] MEDS: SOLU-MEDROL IV SCH ×3 (01:03→17:15)
[2019-03-01] MEDS: DUONEB (A & A) INH SCH ×8 (03:37→23:23)
[2019-03-01 04:46] LABS: ALLEN TEST YES; BE -3.4 mmoll (-3.0-3.0); BLOOD TYPE ARTERIAL; HCO3-(ACT) 22.3 mmoll (20.0-26.0); METHB 1.3 % (0.0-1.5); O2(CT) 14.2 mL/dL (15.0-23.0); PCO2(98.6) 36 mmHg (35-45); PO2(98.6) 101 mmHg (60-100); SAMPLE BLOOD; SAO2 98.9 % (95.0-100.0); THB 10.4 g/dL (11.5-17.4); pH(98.6) 7.38 (7.35-7.45)
[2019-03-01 04:53] LABS: MODALITY VENTIMASK
[2019-03-01] MEDS: ZYVOX 600 MG/D5W 600 MG/300 ML IVPB IV SCH ×2 (06:00→17:15)
[2019-03-01 06:20] LABS: BASO# 0.01 X1000 (0.0-0.2); BASO% 0.1 % (0.0-0.8); HEMATOCRIT 31.1 % (42.0-52.0); HEMOGLOBIN 9.2 g/dL (14.0-18.0); IMM GRAN# 0.02 X1000 (0.0-0.04); IMM GRAN% 0.2 % (0.0-0.5); LYMPH# 0.44 X1000 (1.2-3.4); LYMPH% 4.3 % (20.5-51.1); MCH 26.7 PG (27-31); MCHC 29.6 g/dL (33-37); MCV 90.1 FL (81-99); MONO# 0.04 X1000 (0.11-0.59); MONO% 0.4 % (1.7-9.3); MPV 9.9 FL (7.4-10.4); NEUT# 9.65 X1000 (1.4-6.5); PLT 276 X1000 (130-400); RBC 3.45 XMIL (4.7-6.1); RDW 15.7 % (11.5-14.5); WBC 10.16 X1000 (4.8-10.8)
[2019-03-01 06:38] LABS: AGAP 18; ALB/GLOB RATIO 0.8; ALBUMIN 3.1 g/dL (3.5-5.0); ALKALINE PHOSPHATASE 66 U/L (32-122); BUN 19 mg/dL (8-22); CALCIUM 8.4 mg/dL (8.8-10.2); CHLORIDE 105 mmol/L (98-107); COSMO 293; CREATININE 0.9 mg/dL (0.7-1.2); ESTIMATED GFR > 60; GLUCOSE 208 mg/dL (70-104); GOT 14 U/L (10-34); GPT 7 U/L (10-44); POTASSIUM 4.1 mmol/L (3.5-5.1); SODIUM 143 mmol/L (136-145); TCO2 20 mmol/L (25-35); TOTAL BILIRUBIN 0.24 mg/dL (0.20-1.00); TOTAL PROTEIN 6.8 g/dL (6.3-8.3)
[2019-03-01] MEDS: ELIQUIS PO SCH ×2 (08:01→20:57)
[2019-03-01] MEDS: PRILOSEC PO SCH (08:01)
[2019-03-01] MEDS ORDERED: INVANZ 1 GM/NS 1 GM/50 ML IVPB IV SCH (08:15)
--- NOTE | 2019-03-01 08:20 | PROGRESS NOTE ---
DATE: 03/01/2019 SUBJECTIVE: This patient seems to be feeling a little bit better today. He is oriented x2. He is able to say his date of . He is not oriented to time. He is following commands. He is really hard of hearing. He is on a Ventimask. He is hypoxemic, and for me, probably he still has some pneumonia. He came in tachypneic and tachycardic. Lactic level is elevated. Short of breath and with a lot of phlegm. OBJECTIVE: Vital Signs: Temperature 97.8 degrees, pulse 93, respiratory rate 19, blood pressure 117/60, oxygen saturation 100% on a Venturi mask. HEENT: Head normocephalic. No trauma. PERRLA. Neck: Supple. No JVD. No masses. Central trachea. Chest: Decreased breath sounds globally with prolonged expiratory phase and scattered wheezing bilaterally and crepitus and crackles. Abdomen: Soft, nontender, nondistended. No hepatosplenomegaly. Extremities: No edema, no clubbing, no cyanosis. Neurological: The patient is alert. He is oriented x2. He is not oriented to time. He is able to follow commands. He does have weakness, especially lower extremity weakness. LABORATORY DATA: WBC 10.1, hemoglobin 9.2, hematocrit 31.1, platelets 276,000. Sodium 143, potassium 4.1, chloride 105, bicarbonate 20, BUN 19, creatinine 0.9, glucose 208, calcium 8.4. AST 14, ALT 7, alkaline phosphatase 66, albumin 3.1. ASSESSMENT AND PLAN: 1. Acute hypoxemic respiratory failure, likely due to pneumonia and chronic obstructive pulmonary disease exacerbation. Continue breathing treatment. We have placed this patient on steroids. He received a dose of antibiotics yesterday in the emergency department. He has a recent history of extended spectrum beta-lactamase pneumonia, so I will continue with ertapenem, and I will wait for the recommendations of Infectious Disease Department. 2. Likely aspiration pneumonia with a prior history of extended spectrum beta-lactamase infection. Continue with ertapenem for now pending Infectious Disease Department evaluation and recommendations. 3. Chronic obstructive pulmonary disease exacerbation. Continue with the same management. He seems to be feeling a little bit better today. 4. Sepsis, likely due to pneumonia. Continue with antibiotics, breathing treatment, oxygen supplementation. 5. Chronic constipation with a recent history of gastrointestinal bleed. Continue with his bowel regimen. No bowel movement so far. Continue with anticoagulation as well due to his atrial fibrillation. 6. Atrial fibrillation, on chronic anticoagulation. Continue with the same management. 7. Physical deconditioning and generalized weakness. Once this patient is a little bit better, I will get Physical Therapy to evaluate this patient. 8. Resuscitation status. The patient is DO NOT RESUSCITATE level 1. cc: Garret Carey MD
--- NOTE | 2019-03-01 11:31 | INFECTIOUS DISEASE CONSULT REP ---
DATE: 03/01/2019 CONCLUSION: The patient is admitted to the hospital with a pneumonia. Previously, he was treated with ertapenem for an extended-spectrum beta lactamase-producing Escherichia coli pneumonia. It may be that the pneumonia is caused by the same organism and is a recurrence. RECOMMENDATIONS: I have switched the patient from ertapenem to meropenem in case the organism has developed some resistance against ertapenem. I agree with also treating the patient with Zyvox. PRESENT ILLNESS: The patient recently was hospitalized with pneumonia. His sputum grew out an extended-spectrum beta lactamase-producing Escherichia coli. He was treated with ertapenem, and he was discharged to [facility], and he also had 10 days worth of treatment to complete a 2-week treatment course. The patient was readmitted because of shortness of breath, coughing, and hypoxemia. REVIEW OF SYSTEMS: This was unable to be obtained from the patient. The patient's family was present and did not know much about the patient's medical history. The information I obtained was from the computer. IMAGING AND LABORATORY DATA: The patient's CBC shows a white count of 10,160, hemoglobin 9.2, and platelet count 276,000. Blood gases show a pH of 7.38, a PO2 of 101, a pCO2 of 36. Creatinine of 0.9. GFR of greater than 60. Liver function studies were normal. Urinalysis showed no white cells or bacteria. Blood and urine cultures are pending. Chest x-ray shows a decrease in the right upper lobe infiltrate. PAST MEDICAL HISTORY: Positive for dementia, coronary artery disease, bladder incontinence, hypertension, hyperlipidemia, atrial fibrillation, cataracts, acute kidney injury, constipation, and decreased hearing. PAST SURGICAL HISTORY: Positive for coronary artery disease, appendectomy, cataract surgery, and ear implants. FAMILY HISTORY: Positive for heart attack, cancer, and Alzheimer's disease. SOCIAL HISTORY: The patient lives in [facility]. He does not smoke cigarettes, drink alcoholic beverages, and does not abuse illicit drugs. ALLERGIES: He has no known allergies. MEDICATIONS: Medications taken at the [facility] include Eliquis, Dulcolax, doxycycline, Lexapro, vitamins, Prilosec, Ditropan, Seroquel, and simvastatin. PHYSICAL EXAMINATION: Vital Signs: Temperature is 98 degrees, pulse 83, respirations 24, blood pressure 113/57. The patient weighs 147 pounds. General: This is an ill-appearing, elderly male. He is in no acute distress. HEENT: He has decreased hearing. It was difficult for me to see how good his vision was. He did not have any white coating of his tongue. Neck: No meningismus. Lungs: Clear to auscultation. Cardiovascular: Irregular heart rate. Abdomen: Soft and nontender. Neurologic: The patient is awake. He can move his extremities. He has decreased hearing and a decrease in his memory. Integument: No rash noted. Thank you for the consult. cc: Trevon Omalley MD
[2019-03-01] MEDS: MERREM 1 GM in NS 50 ML IV SCH ×2 (12:05→19:24)
--- NOTE | 2019-03-01 14:58 | PULMONOLOGY CONSULTATION ---
DATE: 03/01/2019 REQUESTING CLINICIAN: Dr. Carey. REASON FOR CONSULTATION: Hypoxemic respiratory failure. HISTORY OF PRESENT ILLNESS: Mr. Zuniga is an 88-year-old white male with dementia, atrial fibrillation, history of aspiration, who was admitted to this hospital in January for an ESBL positive E. coli pneumonia. The patient has had decline over the last year and a half to 2 years and was previously living at home and then moved to assisted living, but has subsequently transferred to a full facility care. The patient presented to the emergency room with a 2-day history of progressive increased cough and increased work of breathing, along with acute hypoxemic respiratory failure. The patient's family reports he had a very wet cough. He has been initiated on antibiotics with significant improvement over night. PAST MEDICAL HISTORY: 1. History of aspiration. Patient is currently prescribed nectar thickening for all liquids. 2. Dementia. 3. Hearing impairment. 4. Atrial fibrillation. 5. History of ESBL pneumonia. 6. Coronary artery disease. 7. Chronic constipation. 8. Status post appendectomy. 9. Status post coronary artery bypass grafting. SOCIAL HISTORY: The patient currently resides in the group home after going through rehabilitation. No significant tobacco use. FAMILY HISTORY: Noncontributory to current presentation. REVIEW OF SYSTEMS: Notable for some abdominal distention, cough, shortness of breath. PHYSICAL EXAMINATION: General: Reveals a frail white male with a BMI of 20.6, resting comfortably. The patient's family reports breathing has significantly improved. Vital Signs: The patient has been afebrile for the last 24 hours. Blood pressure 108/66, heart rate 88, respiratory rate 24, oxygen saturation 96%. HEENT: Pupils are equal and reactive. Oropharynx appears clear. Neck: Supple. Chest: Reveals scattered rhonchi bilaterally. Cardiac: S1, S2. Abdomen: Soft. Extremities: Without edema. LABORATORIES: White blood count 10.16, hemoglobin 9.2, platelet count 276,000. Sodium 143, potassium 4.1, chloride 105, bicarbonate 20, BUN 19, creatinine 0.9. IMPRESSION: An 88-year-old with history of dementia, history of aspiration, currently managed by consuming nectar thickened liquids, who presents with acute decompensation with acute aspiration event and acute hypoxemic respiratory failure. RECOMMENDATIONS: 1. Continue safe swallowing practices. I discussed this with the family. They are aware that he will have ongoing risk of aspiration. 2. Continue oxygen for hypoxemic respiratory failure. 3. Continue bronchodilators. cc: Daniel Clarke MD
[2019-03-01] MEDS ORDERED: NS 250 ML IV ONE (15:24)
[2019-03-01] MEDS: NS 1,000 ML IV SCH (15:44)
[2019-03-01] MEDS: ZOCOR PO SCH (20:57)
[2019-03-02] MEDS: SOLU-MEDROL IV SCH ×3 (01:44→18:06)
[2019-03-02] MEDS: MERREM 1 GM in NS 50 ML IV SCH ×3 (02:39→20:47)
[2019-03-02] MEDS: DUONEB (A & A) INH SCH ×6 (03:41→23:20)
[2019-03-02 04:59] LABS: ALLEN TEST YES; BE 0.6 mmoll (-3.0-3.0); BLOOD TYPE ARTERIAL; HCO3-(ACT) 25.4 mmoll (20.0-26.0); O2(CT) 17.2 mL/dL (15.0-23.0); PCO2(98.6) 36 mmHg (35-45); PO2(98.6) 92 mmHg (60-100); SAMPLE BLOOD; SAO2 98.8 % (95.0-100.0); THB 12.7 g/dL (11.5-17.4); pH(98.6) 7.44 (7.35-7.45)
[2019-03-02 05:00] LABS: MODALITY VENTIMASK
[2019-03-02] MEDS: NS 1,000 ML IV SCH ×2 (05:04→18:07)
[2019-03-02] MEDS: ZYVOX 600 MG/D5W 600 MG/300 ML IVPB IV SCH ×2 (05:44→18:06)
--- NOTE | 2019-03-02 06:18 | Diag Imaging Result Doc PS360 ---
EXAM: CHEST-PORTABLE HISTORY: dyspnea TECHNIQUE: Single view COMPARISON: 03/18/2019 FINDINGS: The lungs are well expanded. There are sternal wires and surgical clips. The heart is borderline mildly prominent. Worsening infiltrates in the left lung base. Minimal markings in the upper right lung are unchanged. No pleural effusions identified. IMPRESSION: Left lower lobe pneumonia Electronically signed by Alfonso Cespedes 03/02/2019 6:16 AM
[2019-03-02 06:26] LABS: HEMATOCRIT 30.5 % (42.0-52.0); HEMOGLOBIN 9.3 g/dL (14.0-18.0); IMM GRAN# 0.04 X1000 (0.0-0.04); IMM GRAN% 0.2 % (0.0-0.5); LYMPH# 0.51 X1000 (1.2-3.4); LYMPH% 2.9 % (20.5-51.1); MCH 26.8 PG (27-31); MCHC 30.5 g/dL (33-37); MCV 87.9 FL (81-99); MONO# 0.17 X1000 (0.11-0.59); MPV 10.1 FL (7.4-10.4); NEUT# 16.62 X1000 (1.4-6.5); NEUT% 95.9 % (42.2-75.2); PLT 282 X1000 (130-400); RBC 3.47 XMIL (4.7-6.1); RDW 15.3 % (11.5-14.5); WBC 17.34 X1000 (4.8-10.8)
[2019-03-02 06:51] LABS: AGAP 13; BUN 21 mg/dL (8-22); CALCIUM 8.2 mg/dL (8.8-10.2); CHLORIDE 103 mmol/L (98-107); COSMO 283; CREATININE 0.8 mg/dL (0.7-1.2); ESTIMATED GFR > 60; GLUCOSE 150 mg/dL (70-104); POTASSIUM 3.5 mmol/L (3.5-5.1); SODIUM 139 mmol/L (136-145); TCO2 23 mmol/L (25-35)
--- NOTE | 2019-03-02 07:36 | PROGRESS NOTE ---
DATE: 03/02/2019 SUBJECTIVE: This patient has been coughing most of the night. He is oriented x2 and he is able to say his date of . He is oriented to time. He is following commands and he is really hard of hearing. He is on a Ventimask at this moment due to hypoxemia. I will continue with same management. As per the nurse, he has been having thick, creamy-colored sputum and, even though his urine output is low, his BUN and creatinine are within normal limits. I will continue with gentle IV fluids. I also requested an evaluation by the swallow team. X-ray showed left lower lobe pneumonia today. OBJECTIVE: Vital Signs: Temperature 97.4 degrees, pulse 75, respiratory rate 17, blood pressure 101/57, oxygen saturation 99 on a Venturi mask. HEENT: Head normocephalic, no trauma. PERRLA. Neck: Supple. No JVD. No masses. Central trachea. Chest: Decreased breath sounds globally with prolonged expiratory phase and scattered wheezing bilaterally and crepitus as well, some crackles at the bases. Abdomen: Soft, nontender, nondistended. No hepatosplenomegaly. Extremities: No edema, no clubbing, no cyanosis. Neurological: The patient is alert. He is following commands. Oriented x2. He does have generalized weakness, especially lower extremity weakness. LABORATORY: WBC 17.3, hemoglobin 9.3, hematocrit 30.5, platelets 282,000. Sodium 139, potassium 3.5, chloride 103, bicarbonate 23, BUN 21, creatinine 0.8, glucose 150, calcium 8.2. ASSESSMENT AND PLAN: 1. Acute hypoxemic respiratory failure likely due to pneumonia, left lower lobe, and COPD exacerbation. Continue breathing treatment. Continue with steroids but I will decrease the frequency a little bit. Continue with antibiotics per infectious disease department, and pulmonary department is also on board. 2. Likely aspiration pneumonia with a prior history of extended spectrum beta lactamase infection. Continue following the recommendations of infectious disease department. There is a possibility of hospital-acquired pneumonia. 3. Chronic obstructive pulmonary disease exacerbation. Continue with same management. I will decrease a little bit the frequency of the steroids today, and hopefully we can do that on a daily basis. 4. Sepsis, likely due to pneumonia. Continue with antibiotics, breathing treatment and oxygen supplementation. 5. Chronic constipation with a recent history of gastrointestinal bleed. Continue with his bowel regimen. He had a couple of bowel movements. We will monitor. 6. Atrial fibrillation, on chronic anticoagulation. Continue with same management. 7. Physical deconditioning and generalized weakness. Once this patient is a bit better, I will get physical therapy to evaluate this patient. 8. Nutritional status. This patient has been placed on a clear liquid diet, but I will ask the swallow evaluation to see this patient since probably this patient has been having some aspiration to the lungs. CRITICAL CARE TIME: 30 minutes. cc: Garret Carey MD
[2019-03-02] MEDS: PRILOSEC PO SCH (08:29)
[2019-03-02] MEDS: ELIQUIS PO SCH ×2 (08:29→20:47)
[2019-03-02] MEDS: DULCOLAX PR SCH (08:56)
[2019-03-02] MEDS: MIRALAX PO SCH (08:57)
--- NOTE | 2019-03-02 12:31 | INFECTIOUS DISEASE PROGRESS NO ---
DATE: 03/02/2019 PRESENT ILLNESS: The patient is admitted the hospital with pneumonia. MEDICATIONS: The patient is on a combination of meropenem and Zyvox. PHYSICAL EXAMINATION: vital signs: Temperature is 97.1 degrees, pulse 106, respirations 28, blood pressure 108/66. Patient is 5 feet 11 inches tall and weighs 172 pounds. General: This is an ill-appearing elderly male. He is in no acute distress. Head, eyes, ears, nose, and throat: He has a marked decrease in his hearing. I could circuit judge how good his vision is. I did not notice any white coating of his tongue. Neck: No pain with movement. Lungs: Clear to auscultation. Cardiovascular: Regular heart rate. Abdomen: Soft and nontender. Neurologic: The patient is awake. He did move his extremities to request. He has a marked decrease in his hearing and his memory is poor. LAB AND X-RAY: Chest x-ray shows left lower lobe pneumonia. [place] [address], hemoglobin 9.3, platelet count 282,000. I think the patient's leukocytosis could well be due to the fact that he is getting intravenous steroids. Blood gases show a pH of 7.44, PO2 of 92, and a pCO2 of 36. Creatinine 0.8. GFR is greater than 60. Blood and urine cultures are negative. Sputum culture is pending. ASSESSMENT AND PLAN: Patient has pneumonia. My plan is to continue the current antibiotics, namely Zyvox and meropenem. COMORBIDITIES: The patient is elderly. He also has dementia, coronary artery disease, bladder incontinence, and decreased hearing. He also has constipation and acute kidney injury. cc: Trevon Omalley MD
--- NOTE | 2019-03-02 13:24 | PULMONOLOGY PROGRESS NOTE ---
DATE: 03/02/2019 SUBJECTIVE: The patient is awake and alert. He is oriented x2. OBJECTIVE: Vital Signs: The patient has been afebrile for the last 24 hours. Blood pressure 105/52, heart rate 76, respiratory rate 21, oxygen saturation 95%. HEENT: Pupils are equal and reactive. Oropharynx is clear. Neck: Is supple. Chest: Reveals rhonchi with decreased breath sounds left base. Cardiovascular: Cardiac exam S1-S2. Abdomen: Soft. Extremities: Without edema. LABORATORIES: Chest x-ray reveals increased infiltrates in the left lung base. White blood count 17.34, hemoglobin 9.3, platelet count 282,000. Arterial blood gas, pH 7.44, pCO2 of 36, PO2 of 92 with a normal lactate. Sodium 139, potassium 3.5, chloride 103, bicarbonate 23, BUN 21, creatinine 0.8. IMPRESSION: 88-year-old with 1. Recurrent aspiration pneumonia. 2. Acute hypoxemic respiratory failure. 3. Dementia. RECOMMENDATIONS: 1. Agree with swallowing evaluation as outlined by Dr. Alcala. 2. Continue antibiotics per Infectious Disease. 3. Continue oxygen for hypoxemic respiratory failure. cc: Daniel Clarke MD
[2019-03-02] MEDS ORDERED: HALDOL IV PRN (18:38)
[2019-03-02] MEDS: ZOCOR PO SCH (20:47)
[2019-03-03] MEDS: MERREM 1 GM in NS 50 ML IV SCH ×3 (02:45→20:04)
[2019-03-03] MEDS: SOLU-MEDROL IV SCH ×3 (02:45→18:00)
[2019-03-03] MEDS: DUONEB (A & A) INH SCH ×6 (03:42→22:56)
[2019-03-03 04:28] LABS: ALLEN TEST YES; BE 0.9 mmoll (-3.0-3.0); BLOOD TYPE ARTERIAL; HCO3-(ACT) 25.6 mmoll (20.0-26.0); METHB 1.2 % (0.0-1.5); MODALITY VENTIMASK; O2HB 96.7 % (95.0-99.0); PCO2(98.6) 38 mmHg (35-45); PO2(98.6) 130 mmHg (60-100); SAMPLE BLOOD; THB 10.1 g/dL (11.5-17.4); pH(98.6) 7.43 (7.35-7.45)
[2019-03-03 05:13] LABS: HEMATOCRIT 29.9 % (42.0-52.0); IMM GRAN# 0.04 X1000 (0.0-0.04); IMM GRAN% 0.3 % (0.0-0.5); LYMPH# 0.65 X1000 (1.2-3.4); LYMPH% 5.3 % (20.5-51.1); MCH 26.3 PG (27-31); MCHC 30.1 g/dL (33-37); MCV 87.4 FL (81-99); MONO# 0.18 X1000 (0.11-0.59); MONO% 1.5 % (1.7-9.3); MPV 10.3 FL (7.4-10.4); NEUT# 11.31 X1000 (1.4-6.5); NEUT% 92.9 % (42.2-75.2); PLT 288 X1000 (130-400); RBC 3.42 XMIL (4.7-6.1); RDW 15.1 % (11.5-14.5); WBC 12.18 X1000 (4.8-10.8)
[2019-03-03] MEDS: ZYVOX 600 MG/D5W 600 MG/300 ML IVPB IV SCH ×2 (05:28→18:00)
[2019-03-03 05:38] LABS: AGAP 11; BUN 24 mg/dL (8-22); CALCIUM 7.6 mg/dL (8.8-10.2); CHLORIDE 108 mmol/L (98-107); COSMO 290; CREATININE 0.8 mg/dL (0.7-1.2); ESTIMATED GFR > 60; GLUCOSE 143 mg/dL (70-104); MAGNESIUM 2.1 mg/dL (1.5-2.7); PHOSPHORUS 2.3 mg/dL (2.7-4.5); POTASSIUM 3.8 mmol/L (3.5-5.1); SODIUM 142 mmol/L (136-145); TCO2 23 mmol/L (25-35)
[2019-03-03 06:02] LABS: LYMPHS 4 % (21-51); SEGS 96 % (42-75)
[2019-03-03] MEDS: MIRALAX PO SCH (08:00)
[2019-03-03] MEDS: ELIQUIS PO SCH ×2 (08:00→20:04)
[2019-03-03] MEDS: PRILOSEC PO SCH (08:00)
[2019-03-03] MEDS: DULCOLAX PR SCH (08:00)
--- NOTE | 2019-03-03 10:27 | INFECTIOUS DISEASE PROGRESS NO ---
DATE: 03/03/2019 PRESENT ILLNESS: The patient has a left lower lobe pneumonia. The patient does have aspiration and this could be causing him to get pneumonia. MEDICATIONS: The patient is receiving a combination of Zyvox and meropenem. PHYSICAL EXAMINATION: Vital Signs: Temperature is 98 degrees, pulse 79, respirations 18, blood pressure 99/59. General: This is an ill-appearing elderly male. He does not appear to be in any acute distress, however. Head, eyes, ears, nose and throat: He has decreased hearing and I could not determine how his vision is. I did not see any white patches in his mouth. Neck: No stiffness. Lungs: Clear to auscultation. Cardiovascular: For the most part the heart rate was regular, but there were times when it appeared to be irregular. Abdomen: Soft and nontender. Neurologic: The patient is lethargic today, but he is arousable. He can move his extremities. There is no tremor. The patient's memory regarding his medical history is poor. He also has a decrease in his hearing. LAB AND X-RAY: Chest x-ray shows a left lower lobe pneumonia. [place] [address], hemoglobin 9, platelet count 288,000. Blood gases show a pH of 7.43, a PO2 of 130, and a pCO2 of 38. Creatinine is 0.8, GFR is greater than 60. Sputum culture grew yeast. Blood and urine cultures are negative. ASSESSMENT AND PLAN: Patient has left lower lobe pneumonia. I plan to continue Zyvox and meropenem. COMORBIDITIES: The patient is elderly. He has dementia, coronary artery disease, bladder incontinence, and decreased hearing. He also may be aspirating which could be the cause of his pneumonia. cc: Trevon Omalley MD
--- NOTE | 2019-03-03 12:22 | PROGRESS NOTE ---
DATE: 03/03/2019 INTERVAL HISTORY: Patient with subjective improvement in dyspnea, but still requiring a lot of oxygen. On Venturi mask this morning. No other acute events overnight. No new complaints. REVIEW OF SYSTEMS: A 12-point review of systems is negative, except as per interval history. LABORATORY DATA: WBC 12.1, hemoglobin 9, hematocrit 29.9, platelets 288,000. ABG with pH 7.43, pCO2 of 38, PO2 of 130 on Ventimask. Sodium 142, potassium 3.8, bicarb 23, BUN 24, creatinine 0.8, glucose 143. OBJECTIVE: Vital Signs: T-max 99.1 degrees, pulse 71, respirations 16, blood pressure 116/72, O2 saturation 100% on Venturi mask. General: No acute distress. HEENT: Normocephalic, atraumatic. Moist mucous membranes. No cervical adenopathy. Cardiovascular: Regular rate and rhythm. No murmurs noted. Pulmonary: Mildly decreased breath sounds throughout, but no further wheezing currently. Slight bibasilar crackles. Abdomen: Soft, nontender, nondistended. Bowel sounds positive. Extremities: Peripheral pulses intact. No clubbing or cyanosis. Neurologic: Cranial nerves grossly intact. No focal deficits identified. Mild global weakness. Psychiatric: Awake, alert, oriented to person and place, but not time. Skin: No new rashes or lesions identified. ASSESSMENT AND PLAN: 1. Acute hypoxemic respiratory failure secondary to pneumonia and chronic obstructive pulmonary disease exacerbation. The patient is subjectively improved, but still on a fair amount of oxygen. Does appear to have room to wean, so will see if we get him on less oxygen today. Breath sounds still decreased, but essentially no wheezing at this point, so will continue to wean steroids and continue DuoNebs. Continue antibiotics with Merrem and Zyvox. Continue to monitor closely. Infectious Disease on board and adjusting antibiotics. 2. Likely aspiration pneumonia. Has had extended spectrum beta-lactamase in the past. Improving slowly on antibiotics as above. 3. Chronic obstructive pulmonary disease exacerbation. No further wheezing. No hypercapnia on last several ABGs. Likely approaching baseline as far chronic obstructive pulmonary disease goes. Will continue weaning antibiotics. 4. Atrial fibrillation. Has been largely normal sinus rhythm here. Continue anticoagulation and monitor. 5. Generalized weakness. Will go ahead and get Physical Therapy on board and see how he does. 6. Nutritional status. Given suspected aspiration pneumonia, asked Speech Therapy to evaluate his swallowing function. They recommended pureed diet with nectar-thick liquids and aspiration precautions. No clear sign of aspiration during their evaluation.
[2019-03-03] MEDS: NS 1,000 ML IV SCH (15:32)
[2019-03-03] MEDS: ZOCOR PO SCH (20:04)
--- NOTE | 2019-03-03 21:43 | PULMONOLOGY PROGRESS NOTE ---
DATE: 03/03/2019 SUBJECTIVE: The patient is awake and alert. He is not oriented. OBJECTIVE: The patient has been afebrile during this hospitalization. Blood pressure 92/58, heart rate 124, respiratory rate 27, oxygen saturation 100% on 5 L per nasal cannula. HEENT: Pupils are equal and reactive. Oropharynx appears clear. Neck is supple. Chest reveals occasional rhonchi bilaterally. Cardiac exam: S1, S2. Abdomen is soft. Extremities without edema. LABORATORY DATA: White blood count 12.2, hemoglobin 9.0, platelet count 288,000. Sodium 142, potassium 3.8, chloride 108, bicarbonate 23, BUN 24, creatinine 0.8. Arterial blood gas this morning on 50%: PH 7.43, pCO2 of 38, pO2 of 130. Microbiology: Preliminary sputum reveals sparse growth of normal lenka. IMPRESSION: An 88-year-old with: 1. Recurrent aspiration pneumonia. 2. Acute hypoxemic respiratory failure. 3. Dementia. 4. Ongoing decline in performance status. PLAN: 1. Continue current antibiotics per Infectious Disease. 2. Continue safe swallowing practices. 3. Wean oxygen as tolerated. 4. Agree with resuscitation status which will allow the patient to have a natural . cc: Daniel Clarke MD
[2019-03-04] MEDS: SOLU-MEDROL IV SCH ×3 (02:53→20:22)
[2019-03-04] MEDS: MERREM 1 GM in NS 50 ML IV SCH ×3 (02:53→20:15)
[2019-03-04] MEDS: DUONEB (A & A) INH SCH ×6 (03:45→23:02)
[2019-03-04] MEDS: ZYVOX 600 MG/D5W 600 MG/300 ML IVPB IV SCH ×2 (05:55→17:52)
[2019-03-04] MEDS: NS 1,000 ML IV SCH ×2 (05:55→17:52)
--- NOTE | 2019-03-04 07:42 | Diag Imaging Result Doc PS360 ---
EXAM: CHEST-PORTABLE 03/04/2019 HISTORY: abnormal exam TECHNIQUE: AP portable at 0526 COMMENT: There is some improvement in the alveolar opacification of the retrocardiac left lower lobe. Otherwise the appearance the chest has not changed significantly since 03/02/2019. IMPRESSION: Improved atelectasis versus pneumonia left lower lobe. Electronically signed by Easton Da Silva 03/04/2019 7:39 AM
[2019-03-04] MEDS: ELIQUIS PO SCH ×2 (08:17→20:15)
[2019-03-04] MEDS: DULCOLAX PR SCH (08:17)
[2019-03-04] MEDS: PRILOSEC PO SCH (08:17)
[2019-03-04] MEDS: MIRALAX PO SCH (08:17)
[2019-03-04 10:17] LABS: BASO# 0.01 X1000 (0.0-0.2); BASO% 0.1 % (0.0-0.8); HEMATOCRIT 31.9 % (42.0-52.0); HEMOGLOBIN 9.6 g/dL (14.0-18.0); IMM GRAN# 0.09 X1000 (0.0-0.04); IMM GRAN% 1.3 % (0.0-0.5); LYMPH# 0.51 X1000 (1.2-3.4); LYMPH% 7.6 % (20.5-51.1); MCH 26.4 PG (27-31); MCHC 30.1 g/dL (33-37); MCV 87.9 FL (81-99); MONO# 0.16 X1000 (0.11-0.59); MONO% 2.4 % (1.7-9.3); MPV 10.3 FL (7.4-10.4); NEUT# 5.95 X1000 (1.4-6.5); NEUT% 88.6 % (42.2-75.2); PLT 287 X1000 (130-400); RBC 3.63 XMIL (4.7-6.1); RDW 15.4 % (11.5-14.5); WBC 6.72 X1000 (4.8-10.8)
[2019-03-04 10:33] LABS: BANDS 2 % (0-1); LYMPHS 6 % (21-51); SEGS 90 % (42-75)
[2019-03-04 10:34] LABS: HYPOCHROM 1+
[2019-03-04 11:01] LABS: AGAP 5; BUN 25 mg/dL (8-22); CALCIUM 8.1 mg/dL (8.8-10.2); CHLORIDE 105 mmol/L (98-107); COSMO 289; CREATININE 1.1 mg/dL (0.7-1.2); ESTIMATED GFR > 60; GLUCOSE 262 mg/dL (70-104); POTASSIUM 4.2 mmol/L (3.5-5.1); SODIUM 138 mmol/L (136-145); TCO2 28 mmol/L (25-35)
--- NOTE | 2019-03-04 12:45 | INFECTIOUS DISEASE PROGRESS NO ---
DATE: 03/04/2019 PRESENT ILLNESS: The patient has left lower lobe probable aspiration pneumonia. MEDICATIONS: This is the is day 4 of treatment with Zyvox and day 3 of treatment with meropenem. The patient also is on steroids. PHYSICAL EXAMINATION: Vital Signs: Temperature 98.2 degrees, pulse 127, respirations 16, and blood pressure 107/77. General: This is an ill-appearing elderly male. He does not appear to be in any acute distress however. Head/eyes/ears/nose/throat: He has decreased hearing. I could not determine how good his vision is. Neck: No pain with movement. Lungs: Bilateral rhonchi. Cardiovascular: Heart rate is regular. Abdomen: Soft and nontender. Neurologic: The patient is more alert today. He can move his extremities. He does not have a tremor. LABORATORY AND X-RAY: [place] [address], hemoglobin 9, and platelet count 288,000. It should be noted the patient is on steroids, and possibly the leukocytosis may be caused by steroids. Also, the patient's aspiration pneumonia also could be causing the patient's leukocytosis. The patient's creatinine is 0.8 GFR is greater than 60. Arterial blood gases show a pH of 7.43, PO2 of 130, pCO2 of 38. Blood and urine cultures are negative. Sputum is growing normal lenka and yeast. Chest x-ray shows improvement in the patient's left lower lobe pneumonia. ASSESSMENT AND PLAN: Patient has left lower lobe pneumonia. I plan to continue Zyvox and meropenem. COMORBIDITIES: The patient is elderly. He has dementia, coronary artery disease, bladder incontinence, and decreased hearing. The patient also may be aspirating. cc: Trevon Omalley MD
--- NOTE | 2019-03-04 14:23 | EKG Report ---
Test Performed on : 03/04/2019 2:14:50 PM Test Reason : aflutter? Blood Pressure : / mmHG Vent. Rate : 130 BPM Atrial Rate : 260 BPM P-R Int : 000 ms QRS Dur : 070 ms QT Int : 304 ms P-R-T Axes : 256 019 -85 degrees QTc Int : 447 ms Atrial flutter. with 2:[address]. [address] and T wave abnormality Abnormal ECG When compared with ECG of 18-FEB-2019 15:25, Atrial flutter. has replaced Sinus rhythm. Vent. rate has increased BY [address] now depressed in Inferior leads Unconfirmed Result
--- NOTE | 2019-03-04 15:48 | PROGRESS NOTE ---
DATE: 03/04/2019 INTERVAL HISTORY: Patient doing well. Oxygen requirements gradually improving. A little tachycardic this morning, but appears to be sinus tachycardia. The patient remains quite hard of hearing and remains mildly confused, but no acute events. No new complaints. REVIEW OF SYSTEMS: Twelve point review of systems is negative except as per interval history. LABORATORY: WBC 6.7, hemoglobin 9.6, hematocrit 31.9, and platelets 287,000. Sodium 138, potassium 4.2, bicarbonate 28, BUN 25, creatinine 1.1, and glucose 262. IMAGING: Chest x-ray with improved atelectasis versus pneumonia in the left lower lobe. VITALS: T-max 99.1 degrees, pulse 129, respirations 18, blood pressure 116/76, and O2 saturation 100 percent on 3 L by nasal cannula. PHYSICAL EXAMINATION: General: No acute distress. Vitals: As above. HEENT: Normocephalic, atraumatic. Moist mucous membranes. No cervical adenopathy. Cardiovascular: Regular rhythm and moderately tachycardic. No murmurs noted. Pulmonary: Still with mildly decreased breath sounds throughout, but no wheezing. Abdomen: Soft, nontender, and nondistended. Bowel sounds positive. Extremities: Peripheral pulses intact. No clubbing or cyanosis. Neurologic: Quite hard of hearing, but otherwise cranial nerves 2 through 12 grossly intact. No focal deficits, but does have mild global weakness. Psychiatric: Awake, alert, oriented to person only. Skin: No new rashes or lesions identified ASSESSMENT AND PLAN: 1. Acute hypoxic respiratory failure secondary to pneumonia and COPD exacerbation. The patient finally with improving oxygenation down to 3 L today. Breath sounds decreased but no wheezing. Continue antibiotics with Merrem and Zyvox for now. If he continues to improve, will hopefully be able to transition to something by mouth over the next 48 hours. Continue nebulizers. We will wean down steroids significantly. We will plan on moving him to the floor. Infectious Disease on board and assisting with antibiotics. 2. Likely aspiration pneumonia. He has had ESBL E. Coli in the past. He is on antibiotics as above. Improving. Monitor. 3. Chronic obstructive pulmonary disease exacerbation. No further wheezing. No hypercapnia on the last several ABGs. Likely, this essentially is baseline as for COPD goes. We will continue weaning steroids. 4. Atrial fibrillation. It has been largely normal sinus rhythm here. Sinus tach this morning. We will monitor and consider further intervention if his tachycardia worsens or his rhythm changes. 5. Generalized weakness. Physical Therapy ordered. We will see how he does. 6. Disposition: Patient is long-term care at [facility]. Can likely go back there either to long-term or to rehab portion depending on how he does with physical therapy as long as his oxygenation continues to improve and his rhythm remains sinus. [facility]ENTER[facility]uh
[2019-03-04] MEDS: LOPRESSOR PO SCH (16:09)
[2019-03-04] MEDS: HUMALOG SUBQ SCH ×2 (16:10→21:13)
--- NOTE | 2019-03-04 16:44 | CARDIOLOGY CONSULTATION ---
DATE: 03/04/2019 The patient has pneumonia, paroxysmal atrial fibrillation-flutter. Cardiology was consulted. HISTORY OF PRESENT ILLNESS: This is an 88-year-old gentleman with a past medical history of atrial fibrillation, coronary artery disease, coronary artery bypass grafting, dementia, had pneumonia in December 2018, is admitted with increasing cough, shortness of breath, and hypoxemia. He was in sinus rhythm. Today he went into atrial flutter with a rate of 130 beats per minute. Patient does not complain of any chest pain. While he was admitted in December, he was discharged on 10 days of Invanz. He feels well. He has dementia. History was obtained from the chart as well. The patient is a resident of [facility]. PAST MEDICAL HISTORY: 1. Coronary artery disease, coronary artery bypass grafting. 2. Dementia. 3. DNR level 1. 4. Atrial fibrillation, paroxysmal. 5. Pneumonia in December 2018. 6. Constipation. 7. Chronic anticoagulation therapy. 8. Ear implants. 9. Appendectomy. MEDICATIONS: At home include omeprazole 20, doxycycline 100 b.i.d., Eliquis 2.5 mg p.o. b.i.d., Seroquel 25 mg at bedtime, Lexapro 10, simvastatin 20, multivitamins, inhalers. In the hospital, in addition he has been receiving meropenem, Zyvox, Solu-Medrol, in addition to simvastatin 20 mg a day. ALLERGIES: He is not known to be allergic to any medications. PHYSICAL EXAMINATION: Vital Signs: Blood pressure was 104/63. Cardiovascular system: First and second heart sounds were heard. Respiratory system: Decreased breath sounds at the base. Abdomen: Soft, nontender. Bowel sounds were heard. Central Nervous System: Detailed not performed. No focal deficit. Moving extremities. LABORATORY EXAMINATION: Revealed a sodium 138, potassium 4.2, BUN 25, creatinine 1.1. Hematology: WBC when he came in was 17.34, today down to 6.72, hemoglobin 9.6, hematocrit 31.9, platelet count of 287,000. ASSESSMENT AND PLAN: Mr. Tim Zuniga is an 88-year-old gentleman with coronary artery disease, coronary artery bypass grafting, paroxysmal atrial fibrillation, had been admitted with pneumonia in December, is admitted with acute respiratory failure, pneumonia, and chronic obstructive pulmonary disease exacerbation. He is on meropenem and Zyvox. He has likely aspiration pneumonia. From a cardiac standpoint, he was in sinus rhythm when he came in. He is in flutter. Has history of atrial fibrillation. I had a discussion with his family. We will put him on Lopressor 50 mg a day for rate control. Continue with anticoagulation therapy. We will get an echocardiogram in the morning to assess valvular function. Thank you for the consult. We will follow hospital course. cc: Modesto Hou MD
[2019-03-04] MEDS: ZOCOR PO SCH (20:15)
[2019-03-05] MEDS: DUONEB (A & A) INH SCH ×6 (03:18→23:30)
[2019-03-05] MEDS: MERREM 1 GM in NS 50 ML IV SCH ×3 (03:52→20:13)
[2019-03-05 06:09] LABS: EOS# 0.01 X1000 (0.0-0.7); EOS% 0.1 % (0.0-10.0); HEMATOCRIT 30.4 % (42.0-52.0); HEMOGLOBIN 9.3 g/dL (14.0-18.0); IMM GRAN# 0.12 X1000 (0.0-0.04); IMM GRAN% 1.7 % (0.0-0.5); MCH 26.6 PG (27-31); MCHC 30.6 g/dL (33-37); MCV 87.1 FL (81-99); MONO# 0.46 X1000 (0.11-0.59); MONO% 6.6 % (1.7-9.3); MPV 10.3 FL (7.4-10.4); NEUT# 5.73 X1000 (1.4-6.5); NEUT% 81.6 % (42.2-75.2); PLT 278 X1000 (130-400); RBC 3.49 XMIL (4.7-6.1); RDW 15.4 % (11.5-14.5); WBC 7.02 X1000 (4.8-10.8)
[2019-03-05] MEDS: ZYVOX 600 MG/D5W 600 MG/300 ML IVPB IV SCH ×2 (06:10→17:53)
[2019-03-05 06:15] LABS: HEMOGLOBIN A1C 5.4 % (4.8-6.0)
[2019-03-05] MEDS: HUMALOG SUBQ SCH ×4 (06:18→21:14)
[2019-03-05 06:31] LABS: AGAP 11; BUN 26 mg/dL (8-22); CALCIUM 7.9 mg/dL (8.8-10.2); CHLORIDE 106 mmol/L (98-107); COSMO 289; ESTIMATED GFR > 60; GLUCOSE 120 mg/dL (70-104); SODIUM 142 mmol/L (136-145); TCO2 25 mmol/L (25-35)
--- NOTE | 2019-03-05 06:38 | PULMONOLOGY PROGRESS NOTE ---
DATE: 03/04/2019 SUBJECTIVE: The patient is confused. He thinks he recently went to the store, but did not have money to pay for items that are on his counter. He was reoriented briefly, but does not realize he is in a hospital setting. OBJECTIVE: Vital Signs: The patient has been afebrile for the last 24 hours. Blood pressure 108/73, heart rate 130, respiratory rate 22, and oxygen saturation 98% on 2 L per nasal cannula. HEENT: Pupils are equal and reactive. Oropharynx appears clear. Neck: Supple. Chest: Reveals scattered rhonchi bilaterally. Cardiac: S1-S2. Abdomen: Soft. Extremities: Without edema. LABORATORIES: Chest x-ray reveals decreasing infiltrate in the left lung base. IMPRESSION: An 88-year-old with: 1. Recurrent aspiration pneumonia. 2. Acute hypoxemic respiratory failure. 3. Dementia. PLAN: 1. Continue current antibiotics per Infectious Disease. 2. Continue safe swallowing practices. 3. Wean oxygen as tolerated. cc: Daniel Clarke MD
[2019-03-05] MEDS: ELIQUIS PO SCH ×2 (08:41→20:13)
[2019-03-05] MEDS: PRILOSEC PO SCH (08:41)
[2019-03-05] MEDS: LOPRESSOR PO SCH (08:41)
[2019-03-05] MEDS: MIRALAX PO SCH (08:42)
[2019-03-05] MEDS: SOLU-MEDROL IV SCH ×2 (08:42→20:12)
[2019-03-05] MEDS: DULCOLAX PR SCH ×2 (08:42→10:46)
[2019-03-05] MEDS: NS 1,000 ML IV SCH ×2 (14:30→20:17)
--- NOTE | 2019-03-05 14:48 | INFECTIOUS DISEASE PROGRESS NO ---
DATE: 03/05/2019 PRESENT ILLNESS: The patient has a left lower lobe pneumonia which is probably due to aspiration. MEDICATIONS: This is day 5 of treatment with Zyvox and day 4 of treatment with meropenem. The patient also is on steroids. PHYSICAL EXAMINATION: Vital Signs: Temperature is 97.1 degrees, pulse 127, respirations 17, blood pressure 93/65. General: This is an ill-appearing elderly male he is in no acute distress. Head/eyes/ears/nose/throat: The patient has decreased hearing. He was able to see objects nearby. He did not does not have any white coating on his tongue. Neck: No pain with movement. Lungs: Bilateral rhonchi. Cardiovascular: Heart rate is regular. Abdomen: Soft and nontender. Neurologic: The patient is alert. He is at times confused. He can move his extremities, and he does not have a tremor. LAB AND X-RAY: Chest x-ray shows improvement in the left lower lobe pneumonia site. Creatinine is 1.0, GFR is greater than 60. CBC shows a white count of 7020 hemoglobin 9.3, and platelet count 278,000. ASSESSMENT AND PLAN: The patient has left lower lobe pneumonia. He is getting better on Zyvox and meropenem, which I plan to continue. COMORBIDITIES: The patient is elderly, and he has the following: Dementia, coronary artery disease, bladder incontinence, decreased hearing, and probable aspiration. cc: Trevon Omalley MD
--- NOTE | 2019-03-05 16:35 | PROGRESS NOTE ---
DATE: 03/05/2019 INTERVAL HISTORY: The patient is doing quite well. Oxygen requirements are almost 0 at this point. Still in atrial fibrillation or flutter with rapid ventricular response this morning despite adjustments in medications, but improved somewhat this afternoon. No new complaints. No other acute events overnight. He remains afebrile. REVIEW OF SYSTEMS: Twelve point review of systems negative except as per interval history. LABS: WBC 7.0, hemoglobin 9.3, hematocrit 30.4, platelets 278,000. Sodium 142, potassium 4, bicarb 25, BUN 26, creatinine 1.0, glucose 119 to 148, hemoglobin A1c 5.4. VITAL SIGNS: T-max 98.9 degrees, pulse 87 currently, up to 130s earlier, respirations 20, blood pressure 89/59, O2 saturation 98% on room air. PHYSICAL EXAMINATION: General: No acute distress. Chronically ill appearing. Vital signs: As above. HEENT: Normocephalic, atraumatic. Moist mucous membranes. No cervical adenopathy. Cardiovascular: Slightly irregular and mildly tachycardic at the time of my exam. No murmurs noted. Pulmonary: Mildly decreased breath sounds throughout but otherwise, essentially clear to auscultation. Abdomen: Soft, nontender, nondistended. Bowel sounds positive. Extremities: Peripheral pulses intact. No clubbing or cyanosis. Neurologic: Cranial nerves grossly intact aside from stable difficulty hearing. No focal deficits identified. Mild global weakness. Psychiatric: Awake, alert, oriented to person and place but not time. Skin: No new rashes or lesions identified. ASSESSMENT AND PLAN: 1. Acute hypoxemic respiratory failure secondary to pneumonia and chronic obstructive pulmonary disease exacerbation, markedly improved. Down to fairly minimal oxygen this morning and off oxygen entirely this afternoon. No further wheezing so COPD exacerbation appears to be resolved. Pneumonia nearly resolved. Still on antibiotics with Merrem and Zyvox currently, but suspect if he continues to improve, can likely transition to p.o. antibiotics in the immediate future. Continue DuoNeb. Weaning steroids. 2. Likely aspiration pneumonia. On antibiotics as above. Monitor. 3. Chronic obstructive pulmonary disease exacerbation. Essentially resolved. Weaning steroids. Continue nebulizers as needed. 4. Atrial fibrillation/flutter with rapid ventricular response. Some medication adjustments by Cardiology yesterday but remained with rapid ventricular response. A little better this afternoon. We will see if it remains rate controlled or not. Continue anticoagulation and monitor. 5. Generalized weakness. Getting physical therapy to see him. 6. Disposition. Respiratory status approaching baseline, but still some issues with his heart rhythm and rate as above. If his heart will behave, then may be able to go back to [facility] tomorrow, but that will depend on his heart behaving.
[2019-03-05] MEDS: ZOCOR PO SCH (20:13)
--- NOTE | 2019-03-05 20:18 | ECHO REPORT ---
ORDER DATE: 03/05/2019 ECHOCARDIOGRAPHIC MEASUREMENTS: 1. Interventricular septum 0.8, left ventricular posterior wall 0.7, diastolic diameter 4.5. Left atrium 3.2. Aorta 3.5. 2. Aortic valve leaflets are trileaflet. 3. Pulmonic valve was normal. 4. Atrial fibrillation was noted. 5. Normal left ventricular cavity size. Estimated ejection fraction of 60%. 6. Mitral valve was normal. 7. Tricuspid valve was normal. 8. Technically suboptimal study. Poor acoustic window. 9. There is moderate tricuspid regurgitation. Peak velocity across the tricuspid valve was 3.3 m/sec. 10. Pulmonary artery systolic pressure of 55 mmHg. 11. Peak velocity across the aortic valve less than 2 m/sec. There is no aortic stenosis or regurgitation. There is mild mitral regurgitation. There is pulmonary arterial hypertension. 12. There is no pericardial effusion. 13. There is mild aortic regurgitation. cc: Modesto Hou MD
[2019-03-06] MEDS: DUONEB (A & A) INH SCH ×6 (03:34→23:30)
[2019-03-06] MEDS: NS 1,000 ML IV SCH ×2 (04:43→12:50)
[2019-03-06] MEDS: MERREM 1 GM in NS 50 ML IV SCH ×3 (04:44→20:15)
[2019-03-06] MEDS: HUMALOG SUBQ SCH ×4 (06:30→20:14)
[2019-03-06] MEDS: ZYVOX 600 MG/D5W 600 MG/300 ML IVPB IV SCH ×2 (06:41→17:32)
[2019-03-06] MEDS: ELIQUIS PO SCH ×2 (09:26→20:15)
[2019-03-06] MEDS: PRILOSEC PO SCH (09:26)
[2019-03-06] MEDS: LOPRESSOR PO SCH (09:26)
[2019-03-06] MEDS: DULCOLAX PR SCH (09:26)
[2019-03-06] MEDS: MIRALAX PO SCH (09:26)
[2019-03-06] MEDS: SOLU-MEDROL IV SCH (09:27)
--- NOTE | 2019-03-06 14:50 | PROGRESS NOTE ---
DATE: 03/06/2019 INTERVAL HISTORY: The patient remains largely in rapid atrial fibrillation/flutter. Improved for a little bit yesterday afternoon, but then went back up overnight. Respiratory status fairly stable with good saturations on minimal oxygen, although he does not appear to be clearing his secretions terribly well this morning. Remains at least moderately confused. Afebrile. REVIEW OF SYSTEMS: A 12-point review of systems negative except as per interval history. PHYSICAL EXAMINATION: Vital Signs: Temperature 98.5 degrees, pulse 137, respirations 12, blood pressure 99/67, O2 saturation 98% on 2 L by nasal cannula. General: No acute distress. Chronically ill appearing. HEENT: Normocephalic, atraumatic. Moist mucous membranes. No cervical adenopathy. Cardiovascular: Irregular, mildly tachycardic. No murmurs noted. Pulmonary: Decreased breath sounds throughout. Lungs are otherwise clear to auscultation. Some upper airway noise and dry cough noted. Abdomen: Soft, nontender, nondistended. Bowel sounds positive. Extremities: Peripheral pulses intact. No clubbing or cyanosis. Neurologic: Cranial nerves grossly intact aside from significant difficulty hearing. No new focal deficits. Mild global weakness stable. Psychiatric: Awake, alert, oriented to person. Struggled with place but did eventually come up with [place]. Not oriented to time. Cooperative and most responses make fairly good sense. Skin: Warm, dry. No new rashes. ASSESSMENT AND PLAN: 1. Acute hypoxemic respiratory failure secondary to pneumonia and chronic obstructive pulmonary disease exacerbation. Could likely come off oxygen entirely at this point. No further wheezing. Respiratory issues essentially resolved at this point. Has been on Merrem and Zyvox but can likely transition to p.o. on discharge. Continue DuoNebs. We will continue weaning steroids. Asked nursing to provide patient with incentive spirometer and encouraged its use to try to help him clear his upper airway secretions. 2. Likely aspiration pneumonia on antibiotics above. Did reasonably well with speech therapy. Monitor. If the patient worsens again or continues to have trouble clearing his airway, then may need full modified barium swallow test, but will defer for now as he appears to be improving. 3. Chronic obstructive pulmonary disease exacerbation, resolved. Weaning steroids. Continue nebulizers as needed. 4. Atrial fibrillation/flutter with rapid ventricular response. Cardiology following. A little bit of improvement after medication adjustments yesterday but then back up again last night and this morning. Awaiting further Cardiology recommendations. Patient is asymptomatic with it. Continue anticoagulation and monitor. 5. Generalized weakness. Continue physical therapy. DISPOSITION: Respiratory status approximately baseline at this point, but still issues with his heart rate and rhythm. We will see what Cardiology says. If we get his heart rate controlled, then will likely be able to go back to [facility], but he has been difficult to control so far.
--- NOTE | 2019-03-06 14:50 | EKG Report ---
Test Performed on : 03/06/2019 2:20:23 PM Test Reason : aflutter Blood Pressure : / mmHG Vent. Rate : 135 BPM Atrial Rate : 270 BPM P-R Int : 000 ms QRS Dur : 080 ms QT Int : 306 ms P-R-T Axes : 252 011 018 degrees QTc Int : 459 ms Atrial flutter. with 2:[address]. [address] abnormality Abnormal ECG When compared with ECG of 04-MAR-2019 14:14, ST no longer depressed in Anterior leads Unconfirmed Result
[2019-03-06] MEDS: CARDIZEM PO SCH ×2 (15:37→22:36)
--- NOTE | 2019-03-06 15:55 | INFECTIOUS DISEASE PROGRESS NO ---
DATE: 03/06/2019 HISTORY OF PRESENT ILLNESS: The patient has left lower lobe pneumonia, which probably is due to aspiration, and it appears to be improving on chest x-ray and clinically. MEDICATIONS: This is day 6 of treatment with Zyvox, and day 5 of treatment with meropenem. PHYSICAL EXAMINATION: Vital Signs: Temperature is 97.8 degrees, pulse is 129, respirations 14, blood pressure is 143/102. General: This is an ill-appearing elderly male. He is in no acute distress. HEENT: He has decreased hearing. I did not notice any white coating of his tongue. Neck: No pain with movement. Lungs: Lungs show bilateral rhonchi. Cardiovascular: Heart rate for the most part of it is regular. There are occasional instances when the patient has a dropped beat. Abdomen: Soft and nontender. Neurologic: The patient is alert. He can move his extremities. He does have decreased hearing. LABORATORIES AND X-RAYS: CBC today shows a white count of 7020, hemoglobin 9.3, and platelet count is 278,000. Creatinine is 1. GFR is greater than 60. There is no new radiographic study back on the patient at this time. ASSESSMENT AND PLAN: The patient has left lower lobe pneumonia. I think he is getting better on Zyvox and meropenem, which I plan to continue. On the first of next week I am going to get a CBC, BMP and chest x-ray, and if everything looks good I think the patient can then be transferred back to the senior living he lives in. COMORBIDITIES: The patient is elderly, he appears to be aspirating. He has dementia, bladder incontinence, and decrease in hearing. cc: Trevon Omalley MD
[2019-03-06] MEDS: ZOCOR PO SCH (20:15)
[2019-03-07] MEDS: NS 1,000 ML IV SCH (00:52)
[2019-03-07] MEDS: MERREM 1 GM in NS 50 ML IV SCH ×3 (03:37→20:19)
[2019-03-07] MEDS: DUONEB (A & A) INH SCH ×6 (03:39→23:04)
[2019-03-07 05:42] LABS: EOS# 0.03 X1000 (0.0-0.7); EOS% 0.4 % (0.0-10.0); HEMATOCRIT 32.5 % (42.0-52.0); HEMOGLOBIN 9.7 g/dL (14.0-18.0); IMM GRAN# 0.17 X1000 (0.0-0.04); IMM GRAN% 2.4 % (0.0-0.5); LYMPH# 1.35 X1000 (1.2-3.4); LYMPH% 18.8 % (20.5-51.1); MCH 26.1 PG (27-31); MCHC 29.8 g/dL (33-37); MCV 87.6 FL (81-99); MONO# 0.54 X1000 (0.11-0.59); MONO% 7.5 % (1.7-9.3); MPV 10.2 FL (7.4-10.4); NEUT# 5.08 X1000 (1.4-6.5); NEUT% 70.9 % (42.2-75.2); PLT 249 X1000 (130-400); RBC 3.71 XMIL (4.7-6.1); RDW 15.8 % (11.5-14.5); WBC 7.17 X1000 (4.8-10.8)
[2019-03-07] MEDS: ZYVOX 600 MG/D5W 600 MG/300 ML IVPB IV SCH (06:13)
[2019-03-07] MEDS: CARDIZEM PO SCH (06:13)
[2019-03-07 06:14] LABS: AGAP 8; BUN 32 mg/dL (8-22); CALCIUM 7.6 mg/dL (8.8-10.2); CHLORIDE 105 mmol/L (98-107); COSMO 285; ESTIMATED GFR > 60; GLUCOSE 104 mg/dL (70-104); POTASSIUM 4.8 mmol/L (3.5-5.1); SODIUM 139 mmol/L (136-145); TCO2 26 mmol/L (25-35)
[2019-03-07] MEDS: HUMALOG SUBQ SCH ×4 (06:34→21:32)
[2019-03-07] MEDS: MIRALAX PO SCH (09:33)
[2019-03-07] MEDS: ELIQUIS PO SCH ×2 (09:34→20:19)
[2019-03-07] MEDS: SOLU-MEDROL IV SCH (09:34)
[2019-03-07] MEDS: PRILOSEC PO SCH (09:34)
[2019-03-07] MEDS ORDERED: NS 1,000 ML IV SCH ×2 (10:12→19:07)
[2019-03-07] MEDS: LOPRESSOR PO SCH ×2 (10:25→20:21)
[2019-03-07] MEDS ORDERED: LANOXIN IV ONE (15:40)
[2019-03-07] MEDS ORDERED: LOPRESSOR PO SCH ×2 (15:45→21:30)
[2019-03-07] MEDS: DULCOLAX PR SCH (15:53)
--- NOTE | 2019-03-07 16:30 | PROGRESS NOTE ---
DATE: 03/07/2019 SUBJECTIVE: The patient notes that he is feeling better. Denies any current complaints. PHYSICAL EXAMINATION: Vital Signs: Temperature 97, pulse 68, respiratory 20, BP 107/61. General: Patient is awake. He is sitting in the bed. He is in no distress. HEENT: Normocephalic. Neck: Neck is supple. CV: Rate control. Chest: Positive rhonchi throughout. No wheezing. Good air movement. Abdomen: Soft, nondistended. Extremities: Moves all extremities. ASSESSMENT: 1. Left lower lobe pneumonia. 2. Acute hypoxic respiratory failure, improved. 3. Adult failure to thrive and generalized weakness. 4. Atrial fibrillation, currently rate controlled. PLAN: We will continue antibiotics through the weekend, and hopefully transition to rehab on Saturday. cc: Parvez Louis MD
--- NOTE | 2019-03-07 17:35 | EKG Report ---
Test Performed on : 03/07/2019 2:58:47 PM Test Reason : increased hr Blood Pressure : / mmHG Vent. Rate : 128 BPM Atrial Rate : 267 BPM P-R Int : 000 ms QRS Dur : 068 ms QT Int : 272 ms P-R-T Axes : 247 -03 084 degrees QTc Int : 397 ms Atrial flutter. with variable AV block. Nonspecific ST and T wave abnormality Abnormal ECG When compared with ECG of 07-MAR-2019 14:51, (Unconfirmed) No significant change was found Unconfirmed Result
--- NOTE | 2019-03-07 17:35 | EKG Report ---
Test Performed on : 03/07/2019 06:32:38 AM Test Reason : afib Blood Pressure : / mmHG Vent. Rate : 091 BPM Atrial Rate : 277 BPM P-R Int : 000 ms QRS Dur : 084 ms QT Int : 350 ms P-R-T Axes : 259 024 053 degrees QTc Int : 430 ms Atrial flutter. with variable AV block. Low voltage QRS Abnormal ECG When compared with ECG of 06-MAR-2019 14:20, (Unconfirmed) No significant change was found Unconfirmed Result
--- NOTE | 2019-03-07 20:10 | PROGRESS NOTE ---
DATE: 03/07/2019 SUBJECTIVE: Patient has had atrial flutter with rapid ventricular rate and tendency for low blood pressure today. He denies any chest discomfort. He continues with some dyspnea as well as cough. OBJECTIVE: Blood pressure 109/63, heart rate 70 with ECG monitor showing atrial flutter with controlled ventricular rate response. Oxygen saturation 96% on nasal cannula oxygen. There is no significant jugular distention. Auscultation chest reveals scattered rhonchi.Cardiac: Reveals a regular rate and rhythm without appreciable murmur or gallop. Extremities: Without edema. LABORATORY DATA: Includes a white blood cell count 7.17, hematocrit 32.5, hemoglobin 9.7, platelet count 249,000. Sodium 139, potassium 4.8, chloride 105, carbon dioxide 26, BUN 32, creatinine 1.0, glucose 104. IMPRESSION: 1. Recurrent atrial arrhythmias. Patient currently in atrial flutter. Heart rate better controlled after switching to digoxin/metoprolol combination given tendency for low blood pressure with diltiazem. 2. Recurrent aspiration pneumonitis. 3. Chronic obstructive pulmonary disease. 4. Atherosclerotic coronary disease with previous coronary bypass grafting. Patient continues without angina. RECOMMENDATIONS: 1. Continue digoxin and metoprolol combination for rate control and leave off diltiazem. 2. Continue anticoagulation. cc: Thang Borrero MD
[2019-03-07] MEDS: ZOCOR PO SCH (20:19)
[2019-03-08] MEDS: LOPRESSOR PO SCH ×5 (01:09→20:08)
[2019-03-08] MEDS: ZYVOX 600 MG/D5W 600 MG/300 ML IVPB IV SCH ×3 (01:15→20:08)
[2019-03-08] MEDS: DUONEB (A & A) INH SCH ×6 (03:46→23:18)
[2019-03-08] MEDS: MERREM 1 GM in NS 50 ML IV SCH ×3 (04:38→20:07)
[2019-03-08] MEDS: HUMALOG SUBQ SCH ×4 (06:07→22:00)
[2019-03-08] MEDS: ELIQUIS PO SCH ×2 (09:28→20:08)
[2019-03-08] MEDS: LANOXIN IV SCH (09:28)
[2019-03-08] MEDS: SOLU-MEDROL IV SCH (09:28)
[2019-03-08] MEDS: MIRALAX PO SCH (09:29)
[2019-03-08] MEDS: DULCOLAX PR SCH (09:29)
[2019-03-08] MEDS: PRILOSEC PO SCH (09:29)
[2019-03-08] MEDS ORDERED: LANOXIN IV ONE (10:01)
--- NOTE | 2019-03-08 17:58 | PROGRESS NOTE ---
DATE: 03/08/2019 SUBJECTIVE: The patient has no complaints. States he is feeling okay. He is sitting up in the chair eating lunch currently. PHYSICAL EXAM: Vital signs: Temperature 97.9 degrees, pulse 91, respiratory rate 18, BP 112/62. General: Patient is in no distress. He is pleasant, awake, alert. HEENT: Normocephalic. Neck: Supple. Cardiovascular: Regular rate. Chest: Clear. Abdomen: Soft. Extremities: No edema. Good pulses. ASSESSMENT: 1. Left lower lobe pneumonia. 2. Acute hypoxic respiratory failure, resolved. 3. Atrial flutter. 4. Hypotension, resolved after changing to digoxin and metoprolol. 5. Generalized weakness. PLAN: We will continue patient in the hospital continue Merrem and Zyvox. Infectious Disease will re-evaluate in the a.m. We have changed to digoxin and metoprolol due to his hypotension which appears to have resolved after stopping Cardizem. We will continue to follow. Further orders as needed. Hopefully, he will continue to improve and can transition to rehab. cc: Parvez Louis MD
[2019-03-08] MEDS: ZOCOR PO SCH (20:08)
[2019-03-09] MEDS: MERREM 1 GM in NS 50 ML IV SCH ×3 (02:45→20:17)
[2019-03-09] MEDS: LOPRESSOR PO SCH ×7 (02:45→21:06)
[2019-03-09] MEDS: DUONEB (A & A) INH SCH ×6 (03:20→23:19)
[2019-03-09] MEDS: HUMALOG SUBQ SCH ×4 (06:02→20:18)
[2019-03-09 06:10] LABS: BASO# 0.01 X1000 (0.0-0.2); BASO% 0.1 % (0.0-0.8); HEMATOCRIT 33.9 % (42.0-52.0); HEMOGLOBIN 10.5 g/dL (14.0-18.0); IMM GRAN# 0.23 X1000 (0.0-0.04); IMM GRAN% 3.1 % (0.0-0.5); LYMPH# 1.25 X1000 (1.2-3.4); LYMPH% 16.6 % (20.5-51.1); MCH 26.9 PG (27-31); MCV 86.7 FL (81-99); MONO# 0.52 X1000 (0.11-0.59); MONO% 6.9 % (1.7-9.3); MPV 10.6 FL (7.4-10.4); NEUT# 5.52 X1000 (1.4-6.5); NEUT% 73.3 % (42.2-75.2); PLT 225 X1000 (130-400); RBC 3.91 XMIL (4.7-6.1); WBC 7.53 X1000 (4.8-10.8)
[2019-03-09 06:39] LABS: AGAP 5; BUN 31 mg/dL (8-22); CALCIUM 7.1 mg/dL (8.8-10.2); CHLORIDE 101 mmol/L (98-107); COSMO 278; ESTIMATED GFR > 60; GLUCOSE 95 mg/dL (70-104); POTASSIUM 4.4 mmol/L (3.5-5.1); SODIUM 136 mmol/L (136-145); TCO2 30 mmol/L (25-35)
--- NOTE | 2019-03-09 06:46 | Diag Imaging Result Doc PS360 ---
CHEST-1 VIEW - 03/09/2019 INDICATION: pneumonia COMPARISON: 03/04/2019 FINDINGS: Stable CABG changes. Lung volumes are lower. There is worsening infiltrate/collapse of the left lower lobe. There is worsening at the right upper lobe infiltrate as well. Heart size remains top normal. IMPRESSION: Worsening bilateral infiltrates suggesting pneumonia. Electronically signed by Ruben Stone 03/09/2019 6:44 AM
[2019-03-09] MEDS: ZYVOX 600 MG/D5W 600 MG/300 ML IVPB IV SCH ×2 (09:01→20:17)
[2019-03-09] MEDS: DULCOLAX PR SCH (09:01)
[2019-03-09] MEDS: LANOXIN IV SCH (09:01)
[2019-03-09] MEDS: ELIQUIS PO SCH ×2 (09:01→20:17)
[2019-03-09] MEDS: PRILOSEC PO SCH (09:01)
[2019-03-09] MEDS: MIRALAX PO SCH (09:02)
[2019-03-09] MEDS: SOLU-MEDROL IV SCH (09:03)
--- NOTE | 2019-03-09 14:04 | PROGRESS NOTE ---
DATE: 03/09/2019 SUBJECTIVE: The patient himself has no complaints. PHYSICAL EXAMINATION: Vital Signs: Reviewed. Temperature 97.9 degrees, pulse 70, respiratory rate 18, BP 132/79. General: The patient is sitting in the chair. He is in minimal respiratory distress. HEENT: Normocephalic. Neck: Supple. Cardiovascular: Regular rate. Chest: Decreased breath sounds, but equal bilaterally. No crackles. No wheezing. The patient does have poor inspiratory effort. Abdomen: Soft, nontender. Extremities: Moves all extremities, although generalized weakness. Neurologic: No focal changes. ASSESSMENT: 1. Pneumonia. His most recent chest x-ray appears to be worse. 2. Acute hypoxic respiratory failure. 3. Adult failure to thrive with generalized weakness. 4. Atrial flutter. PLAN: Currently, he is on Merrem and Zyvox. We are going to discuss with Infectious Disease if they decide to change this. Need to consider encouraging incentive spirometry and possibly even acapella treatments. Will not transfer him to rehab at this point, but will follow. cc: Parvez Louis MD
--- NOTE | 2019-03-09 14:30 | INFECTIOUS DISEASE PROGRESS NO ---
DATE: 03/09/2019 PRESENT ILLNESS: The patient has bilateral aspiration pneumonia, which is worsening. MEDICATIONS: This is day 9 of Zyvox and day 8 of meropenem. PHYSICAL EXAMINATION: Vital Signs: Temperature is 98.5 degrees, pulse 69, respirations 20, blood pressure 121/68. General: This is an ill-appearing elderly male. He is in no acute distress. Head/eyes/ears/nose/throat: The patient has decreased hearing. He does not have any white patches in his mouth. Neck: No pain with movement. Lungs: There were bilateral rhonchi. Cardiovascular: Heart rate is regular. Abdomen: Soft and nontender. Neurologic: The patient has decreased hearing. He is able to carry on a conversation and he can move his extremities. He does not have a tremor. LAB AND X-RAY: Chest x-ray shows worsening of the bilateral infiltrates. The patient's CBC shows a white count of 7530, hemoglobin 10.5 and platelet count 225,000. Creatinine is 1. GFR is greater than 60. ASSESSMENT AND PLAN: The patient has bilateral aspiration pneumonia. I am going to continue meropenem and Zyvox and add p.o. Levaquin. Also, I have requested Dr. Clarke to look at the patient and see if he has any further suggestions to make. COMORBIDITIES: The patient is elderly. He aspirates. He has dementia, bladder incontinence and decreased hearing. cc: Trevon Omalley MD
[2019-03-09] MEDS: LEVAQUIN PO SCH (16:54)
[2019-03-09] MEDS: ZOCOR PO SCH (20:17)
[2019-03-10] MEDS: MERREM 1 GM in NS 50 ML IV SCH ×3 (02:52→21:00)
[2019-03-10] MEDS: LOPRESSOR PO SCH ×4 (02:53→21:05)
[2019-03-10] MEDS: DUONEB (A & A) INH SCH ×6 (03:47→23:57)
[2019-03-10] MEDS ORDERED: CALMOSEPTINE OINTMENT TOP PRN (04:10)
[2019-03-10 06:32] LABS: BASO# 0.01 X1000 (0.0-0.2); BASO% 0.1 % (0.0-0.8); EOS# 0.01 X1000 (0.0-0.7); EOS% 0.1 % (0.0-10.0); HEMATOCRIT 34.6 % (42.0-52.0); HEMOGLOBIN 10.6 g/dL (14.0-18.0); IMM GRAN# 0.18 X1000 (0.0-0.04); IMM GRAN% 2.3 % (0.0-0.5); LYMPH# 1.54 X1000 (1.2-3.4); LYMPH% 19.5 % (20.5-51.1); MCH 26.4 PG (27-31); MCHC 30.6 g/dL (33-37); MCV 86.3 FL (81-99); MONO# 0.57 X1000 (0.11-0.59); MONO% 7.2 % (1.7-9.3); MPV 10.1 FL (7.4-10.4); NEUT# 5.57 X1000 (1.4-6.5); NEUT% 70.8 % (42.2-75.2); PLT 181 X1000 (130-400); RBC 4.01 XMIL (4.7-6.1); RDW 15.8 % (11.5-14.5); WBC 7.88 X1000 (4.8-10.8)
[2019-03-10] MEDS: HUMALOG SUBQ SCH ×4 (06:35→20:23)
--- NOTE | 2019-03-10 06:38 | PULMONOLOGY PROGRESS NOTE ---
DATE: 03/09/2019 SUBJECTIVE: The patient is lying flat in the bed. He has an audible rattle. He is disoriented and does not know where he is. OBJECTIVE: Vital Signs: The patient has been afebrile for the last 24 hours. Blood pressure 124/64, heart rate 69, respiratory rate 15, oxygen saturation 100% on 2 L per nasal cannula. HEENT: Pupils are equal and reactive. Oropharynx is clear. Neck: Supple. Chest: Reveals scattered rhonchi bilaterally with decreased breath sounds in both lung bases. Cardiac: S1, S2. Abdomen: Soft. Extremities: Without edema. IMAGING: Chest x-ray reveals increased infiltrate in the right upper lobe with increasing infiltrate in the left base. IMPRESSION: An 88-year-old with fluctuating pulmonary infiltrates. Prior CT scans have revealed consolidation in both lung bases. This information, coupled with the history of aspiration and the diagnosis of dementia, suggests that he is having recurrent and intermittent aspiration. Clinical exam is consistent with recurrent aspiration along with fluctuating infiltrates. In this patient, the only way to avoid recurrent aspiration would be to make him n.p.o. and feed him an alternative route such as with a feeding jejunostomy. With his dementia, that is not recommended because his overall prognosis appears to be poor. It is not clear that he will clear his pneumonia given the fluctuating and recurrent infiltrates despite broad-spectrum antibiotics. RECOMMENDATIONS: 1. Agree with current code status. 2. I doubt he has significant rehab potential. 3. Consider discharge with hospice. 4. If family wishes aggressive intervention, would consider PEG tube placement, but this is recommended. cc: Daniel Clarke MD
[2019-03-10 07:17] LABS: AGAP 8; BUN 27 mg/dL (8-22); CALCIUM 8.1 mg/dL (8.8-10.2); CHLORIDE 101 mmol/L (98-107); COSMO 285; ESTIMATED GFR > 60; GLUCOSE 79 mg/dL (70-104); POTASSIUM 4.5 mmol/L (3.5-5.1); SODIUM 141 mmol/L (136-145); TCO2 32 mmol/L (25-35)
[2019-03-10] MEDS: ELIQUIS PO SCH ×2 (09:30→21:01)
[2019-03-10] MEDS: PRILOSEC PO SCH (09:30)
[2019-03-10] MEDS: LANOXIN IV SCH (09:31)
[2019-03-10] MEDS: LEVAQUIN PO SCH (09:31)
[2019-03-10] MEDS: MIRALAX PO SCH (09:31)
[2019-03-10] MEDS: DULCOLAX PR SCH (09:31)
[2019-03-10] MEDS: ZYVOX 600 MG/D5W 600 MG/300 ML IVPB IV SCH ×2 (09:31→21:00)
[2019-03-10] MEDS: SOLU-MEDROL IV SCH (09:31)
--- NOTE | 2019-03-10 09:46 | INFECTIOUS DISEASE PROGRESS NO ---
DATE: 03/10/2019 PRESENT ILLNESS: The patient has bilateral aspiration pneumonia. MEDICATIONS: This is day 10 of Zyvox and day 9 of meropenem. Also, the patient has had 1 day of being treated with Levaquin in addition to the 2 other antibiotics. PHYSICAL EXAMINATION: Vital Signs: Temperature is 97.3 degrees, pulse 69, respirations 16, blood pressure 133/65. General: This is an ill-appearing, elderly male. He is in no acute distress. Head, Eyes, Ears, Nose, and Throat: He has decreased hearing. He does not have any white coating of his tongue. Neck: No pain with movement. Lungs: Bilateral rhonchi. Cardiovascular: Heart rate is irregular. Abdomen: Soft and nontender. Neurologic: The patient has decreased hearing. He, today, was very confused and he was unable to carry on a coherent conversation. LAB AND X-RAY: CBC shows a white count of 7880, hemoglobin 10.6, platelet count is 181,000. Creatinine is 1. GFR is greater than 60. There is no new chest x-ray for today. ASSESSMENT AND PLAN: I appreciate Dr. Clarke seeing the patient and I agree with him that the patient does have aspiration. Short of making him nothing per oral, we will not be able to prevent him from getting recurrent pneumonia. For now, I am going to continue the current antibiotics and see if it makes any further difference. I have also ordered a chest x-ray for tomorrow. COMORBIDITIES: The patient is elderly and he aspirates. He has dementia, bladder incontinence, and decreased hearing. cc: Trevon Omalley MD
--- NOTE | 2019-03-10 18:15 | PROGRESS NOTE ---
DATE: 03/10/2019 SUBJECTIVE: The patient is sitting up in bed, resting. He has a loose productive cough. OBJECTIVE: Vital Signs: Temperature 97.7 degrees, blood pressure 112/68, heart rate 69, respirations 24, O2 saturation is 100% on 3 L nasal cannula. General: This is a chronically ill- appearing elderly male, lying in bed in no acute distress. Heart: S1, S2 normal. Regular rate and rhythm. Lungs: Coarse breath sounds bilaterally. Abdomen: Positive bowel sounds. Soft, nontender, nondistended. Extremities: No edema, no cyanosis. Neurological: No focal changes noted. The patient is awake. LABORATORY DATA: White blood cell count 7.8, hemoglobin 10, hematocrit 34, platelets 181,000. Sodium 141, potassium 4.5, chloride 101, CO2 of 32, BUN 27, creatinine 1, glucose 136, calcium 8.1. ASSESSMENT AND PLAN: 1. Acute on chronic hypoxemic respiratory failure. Continue with respiratory toiletry. 2. Aspiration pneumonia. Continue with antibiotic therapy as directed by Dr. Omalley. 3. Dementia. Aware. 4. Nutrition. The patient is currently on a pureed diet, although there is concern that he is aspirating each time he eats. 5. Atrial flutter. The patient is rate controlled. Continue on digoxin and Eliquis. 6. Diabetes mellitus, type 2. Continue with sliding scale insulin. 7. Anemia. Stable. DISPOSITION: The patient is a DNR level 1. cc: Joy Stark MD MTDD
[2019-03-10] MEDS: ZOCOR PO SCH (21:01)
[2019-03-11] MEDS: DUONEB (A & A) INH SCH ×6 (03:39→23:44)
[2019-03-11] MEDS: MERREM 1 GM in NS 50 ML IV SCH ×3 (05:05→21:42)
[2019-03-11 05:58] LABS: BASO# 0.01 X1000 (0.0-0.2); BASO% 0.1 % (0.0-0.8); EOS# 0.02 X1000 (0.0-0.7); EOS% 0.2 % (0.0-10.0); HEMATOCRIT 34.8 % (42.0-52.0); HEMOGLOBIN 10.8 g/dL (14.0-18.0); IMM GRAN# 0.12 X1000 (0.0-0.04); IMM GRAN% 1.4 % (0.0-0.5); LYMPH# 1.49 X1000 (1.2-3.4); LYMPH% 16.8 % (20.5-51.1); MCH 26.7 PG (27-31); MCV 86.1 FL (81-99); MONO# 0.62 X1000 (0.11-0.59); MPV 10.6 FL (7.4-10.4); NEUT# 6.62 X1000 (1.4-6.5); NEUT% 74.5 % (42.2-75.2); PLT 157 X1000 (130-400); RBC 4.04 XMIL (4.7-6.1); RDW 16.1 % (11.5-14.5); WBC 8.88 X1000 (4.8-10.8)
[2019-03-11 06:28] LABS: AGAP 11; BUN 28 mg/dL (8-22); CHLORIDE 98 mmol/L (98-107); COSMO 281; ESTIMATED GFR > 60; GLUCOSE 94 mg/dL (70-104); POTASSIUM 4.6 mmol/L (3.5-5.1); SODIUM 138 mmol/L (136-145); TCO2 29 mmol/L (25-35)
[2019-03-11] MEDS: HUMALOG SUBQ SCH ×4 (06:39→21:09)
--- NOTE | 2019-03-11 07:56 | Diag Imaging Result Doc PS360 ---
CHEST-1 VIEW - 03/11/2019 INDICATION: pneumonia COMPARISON: 03/09/2019 FINDINGS: Stable dense retrocardiac opacification. Stable hazy infiltrate throughout the left midlung and base. There has been improvement in the right upper lobe infiltrate. No new infiltrates. Heart size is top normal. IMPRESSION: Improved aeration of the right upper lobe. Electronically signed by Ruben Stone 03/11/2019 7:54 AM
[2019-03-11] MEDS: ZYVOX 600 MG/D5W 600 MG/300 ML IVPB IV SCH (09:59)
[2019-03-11] MEDS: MIRALAX PO SCH (10:00)
[2019-03-11] MEDS: SOLU-MEDROL IV SCH (10:01)
[2019-03-11] MEDS: PRILOSEC PO SCH (10:01)
[2019-03-11] MEDS: LOPRESSOR PO SCH ×2 (10:01→21:41)
[2019-03-11] MEDS: LEVAQUIN PO SCH (10:01)
[2019-03-11] MEDS: ELIQUIS PO SCH ×2 (10:01→21:42)
[2019-03-11] MEDS: LANOXIN IV SCH (10:02)
[2019-03-11] MEDS: DULCOLAX PR SCH (10:10)
--- NOTE | 2019-03-11 19:10 | INFECTIOUS DISEASE PROGRESS NO ---
DATE: 03/11/2019 PRESENT ILLNESS: The patient has bilateral aspiration pneumonia. MEDICATIONS: This is day 11 of Zyvox and day 10 of meropenem. Recently I started Levaquin, and this is day 2 of treatment with Levaquin. PHYSICAL EXAMINATION: Vital Signs: Temperature is 97.3 degrees, pulse 105, respirations 25, blood pressure 106/46. General: This is an ill-appearing elderly male. He is in no acute distress, however. Head/Eyes/Ears/Nose/Throat: He has decreased hearing. He does not have any drainage from his nose or the ears. I did not see any white coating of his tongue. Neck: No pain with movement. Lungs: Today the patient's lungs are clear to auscultation. Cardiovascular: Heart rate is irregular. Abdomen: Soft and nontender. Neurologic: The patient has decreased hearing. He can move his extremities. Unfortunately, he cannot carry on a coherent conversation. LABORATORY AND X-RAY: Chest x-ray shows improvement of the patient's right upper lobe infiltrate. The left lung infiltrate is about the same. CBC shows a white count of 8880, hemoglobin 10.8, platelet count 157,000. Creatinine is 1, GFR is greater than 60. ASSESSMENT AND PLAN: I agree with Dr. Clarke that the patient has aspiration pneumonia, and unfortunately, I do not know of any way we can prevent this from happening. For right now, I am going to continue with the current antibiotics. COMORBIDITIES: The patient is elderly, and he unfortunately has aspiration. He also has dementia and bladder incontinence and decreased hearing. cc: Trevon Omalley MD
--- NOTE | 2019-03-11 19:18 | PROGRESS NOTE ---
DATE: 03/11/2019 SUBJECTIVE: The patient is resting comfortably. No acute events noted overnight. OBJECTIVE: Vital signs: Temperature 97.8 degrees, blood pressure 104/57, heart rate 78, respirations 18, O2 saturation 99% on 2 L nasal cannula. General: This is a chronically ill- appearing elderly male sitting up in bed in no acute distress. Heart: S1, S2 normal. Regular rate and rhythm. Lungs: Coarse breath sounds bilaterally with crackles. Abdomen: Positive bowel sounds. Soft, nontender, nondistended. Extremities: No edema. No cyanosis. Neuro: The patient is awake. LABS: Sodium 138, potassium 4.6, BUN 28, creatinine 1, glucose 94, hemoglobin 10, hematocrit 34. Chest x-ray shows improvement in the right upper lobe. ASSESSMENT AND PLAN: 1. Acute on chronic hypoxemic respiratory failure. Continue to treat the underlying pneumonia. 2. Aspiration pneumonia. Slowly improving. Continue with antibiotic therapy as directed by Dr. Omalley. 3. Dementia. Aware. 4. Atrial flutter. The patient is currently on digoxin and Eliquis. Cardiology is following. 5. Diabetes mellitus type 2. Continue on sliding scale insulin. 6. Anemia. Stable. 7. Continue with physical therapy. cc: Joy Stark MD MTDD
[2019-03-11] MEDS: ZOCOR PO SCH (21:41)
[2019-03-11] MEDS: ZYVOX PO SCH (21:41)
[2019-03-12] MEDS: DUONEB (A & A) INH SCH ×4 (03:14→16:13)
[2019-03-12] MEDS: MERREM 1 GM in NS 50 ML IV SCH (05:53)
[2019-03-12 06:12] LABS: BASO# 0.01 X1000 (0.0-0.2); BASO% 0.1 % (0.0-0.8); EOS# 0.01 X1000 (0.0-0.7); EOS% 0.1 % (0.0-10.0); HEMATOCRIT 32.7 % (42.0-52.0); IMM GRAN# 0.09 X1000 (0.0-0.04); IMM GRAN% 0.9 % (0.0-0.5); LYMPH# 1.19 X1000 (1.2-3.4); LYMPH% 12.4 % (20.5-51.1); MCH 26.3 PG (27-31); MCHC 30.6 g/dL (33-37); MCV 86.1 FL (81-99); MONO# 0.67 X1000 (0.11-0.59); NEUT% 79.5 % (42.2-75.2); PLT 131 X1000 (130-400); RDW 16.4 % (11.5-14.5); WBC 9.57 X1000 (4.8-10.8)
[2019-03-12] MEDS: HUMALOG SUBQ SCH ×2 (06:13→11:21)
[2019-03-12 06:25] LABS: HEMOGLOBIN A1C 6.1 % (4.8-6.0)
[2019-03-12 06:36] LABS: AGAP 11; BUN 30 mg/dL (8-22); CALCIUM 8.2 mg/dL (8.8-10.2); CHLORIDE 101 mmol/L (98-107); COSMO 288; CREATININE 1.1 mg/dL (0.7-1.2); ESTIMATED GFR > 60; GLUCOSE 83 mg/dL (70-104); POTASSIUM 4.4 mmol/L (3.5-5.1); SODIUM 142 mmol/L (136-145); TCO2 30 mmol/L (25-35)
[2019-03-12] MEDS: ELIQUIS PO SCH (09:21)
[2019-03-12] MEDS: LOPRESSOR PO SCH (09:21)
[2019-03-12] MEDS: LEVAQUIN PO SCH (09:21)
[2019-03-12] MEDS: ZYVOX PO SCH (09:21)
[2019-03-12] MEDS: DULCOLAX PR SCH (09:23)
[2019-03-12] MEDS: SOLU-MEDROL IV SCH (09:24)
[2019-03-12] MEDS: MIRALAX PO SCH (09:25)
[2019-03-12] MEDS: LANOXIN IV SCH (09:27)
[2019-03-12] MEDS: PRILOSEC PO SCH (09:48)
--- NOTE | 2019-03-12 14:18 | DISCHARGE SUMMARY ---
ADMISSION DATE: 02/28/2019 DISCHARGE DATE: 03/12/2019 FINAL DISCHARGE DIAGNOSES: 1. Acute on chronic hypoxemic respiratory failure. 2. Aspiration pneumonia. 3. Dysphagia. 4. Dementia. 5. Atrial flutter. 6. Diabetes mellitus type 2. 7. Anemia. 8. Coronary artery disease. 9. Chronic constipation. 10. History of coronary artery bypass graft. 11. Prediabetes CONSULTATIONS: 1. Pulmonary consultation with Dr. Clarke. 2. ID consultation with Dr. Omalley. IMAGIN. Portable chest x-ray performed on 02/28/2019 which revealed a right upper lobe infiltrate. 2. Abdominal x-ray performed on 02/28/2019 that revealed constipation. 3. Echocardiogram performed on 03/05/2019 that revealed an ejection fraction of 60% and atrial fibrillation. HOSPITAL COURSE: Mr. Zuniga is an 88-year-old male with a history of multiple medical problems including aspiration pneumonia, dementia, and coronary artery disease, who was brought to the ER with a chief complaint of shortness of breath and hypoxemia. The patient was admitted to the hospitalist service. An x-ray done in the ER revealed pneumonia. The patient did have a history of recent ESBL pneumonia. Pulmonary medicine as well as ID were consulted for further recommendations. The patient was treated with 11 days of IV antibiotic therapy. A repeat chest x- ray done yesterday revealed improvement in the infiltrative process. The patient has a known history of dysphagia resulting in aspiration. This was discussed with the patient and his family, and they have stated that they are not interested in feeding tube placement. The patient is currently a Do Not Resuscitate level 1. The patient was transitioned to doxycycline and Levaquin for another 7 days. At this time, the patient is medically stable for discharge to [facility]. On the day of discharge, the patient was noted to have a hemoglobin of 10 with hematocrit of 32. DISCHARGE MEDICATIONS: 1. Digoxin 125 mcg oral daily. 2. Doxycycline 100 mg oral twice a day x7 days. 3. Bisacodyl 10 mg per rectum daily. 4. DuoNeb 3 mL inhaled every 4 hours. 5. Lopressor 50 mg oral twice a day. 6. MiraLAX 17 g oral daily. 7. Calcium plus vitamin D 1 tablet oral daily. 8. Ensure daily. 9. Multivitamin 400 mcg oral daily. 10. Ditropan 5 mg oral twice a day. 11. Simvastatin 20 mg oral at bedtime. 12. Lexapro 10 mg oral daily. 13. Eliquis 2.5 mg oral twice a day. 14. Prilosec 20 mg oral daily. 15. Levaquin 500 mg oral daily x7 days. DISCHARGE DIET: Pureed diet with aspiration precautions. FOLLOWUP INSTRUCTIONS: The patient will need to follow up with Dr. Blanco in 2 to 3 weeks. cc: MD Glenn Fernández MD [facility]
--- NOTE | 2019-03-12 15:13 | INFECTIOUS DISEASE PROGRESS NO ---
DATE: 03/12/2019 PRESENT ILLNESS: The patient has bilateral aspiration pneumonia. MEDICATIONS: This is day 12 of Zyvox and day 11 of meropenem. Recently, I started Levaquin and this is day 3 of it. PHYSICAL EXAMINATION: Vital Signs: Temperature is 97.8 degrees, pulse 64, respirations 18, blood pressure is 119/49. General: This is an ill-appearing, elderly male. He is in no acute distress. Head, Eyes, Ears, Nose, and Throat: He has decreased hearing. He does not have any drainage coming from his nose or ears. His tongue does not have any white patches on it. Neck: He does not have pain when he moves it. Lungs: Clear to auscultation. Cardiovascular: Heart rate is irregular. Abdomen: Soft and nontender. Neurologic: The patient is alert. He tried to get out of bed last night and apparently fell on the floor. He is not able to carry on a coherent conversation. LAB AND X-RAY: There is no new x-ray for today. The one yesterday showed improvement in the patient's infiltrate. The patient's CBC shows a white count of 9570, hemoglobin 10, platelet count 131,000. Creatinine is 1.1. GFR is greater than 60. ASSESSMENT AND PLAN: I have discontinued meropenem and Zyvox. My plan is to continue Levaquin and add doxycycline 100 mg by mouth every 12 hours. I would suggest continuing both Levaquin and doxycycline for another week and then stop it. Unfortunately, this patient aspirates and most likely, he will do it again in which case pneumonia will probably happen but for now, I think he can go back to the longterm. COMORBIDITIES: The patient is elderly and he aspirates. He also has dementia, bladder incontinence, and decreased hearing. cc: Trevon Omalley MD
[2019-03-12 15:57] VITALS: BP 135/72
[2019-03-12] MEDS ORDERED: DOXYCYCLINE PO SCH (20:00)
== END 2019-03-12 17:02 | DRG 871 ==
LOC: SUPCPDRO → ED 15:08 → SUATTDRO 18:45 → ICU 18:45 → 2N 03-04 11:21
PROVIDERS: ATTEND Internal Medicine

== ENCOUNTER 2019-05-18 00:33 | Inpatient (IN) ==
[2019-05-18] MEDS ORDERED: DUONEB (A & A) INH ONE (01:17)
[2019-05-18] MEDS ORDERED: ZOSYN 3.375 GM in NS 50 ML IV ONE (01:17)
[2019-05-18 01:49] LABS: BASO# 0.01 X1000 (0.0-0.2); BASO% 0.2 % (0.0-0.8); HEMATOCRIT 39.9 % (42.0-52.0); HEMOGLOBIN 12.1 g/dL (14.0-18.0); IMM GRAN# 0.02 X1000 (0.0-0.04); IMM GRAN% 0.4 % (0.0-0.5); LYMPH# 0.52 X1000 (1.2-3.4); LYMPH% 9.3 % (20.5-51.1); MCH 26.4 PG (27-31); MCHC 30.3 g/dL (33-37); MCV 86.9 FL (81-99); MONO# 0.16 X1000 (0.11-0.59); MONO% 2.9 % (1.7-9.3); MPV 10.1 FL (7.4-10.4); NEUT# 4.89 X1000 (1.4-6.5); NEUT% 87.2 % (42.2-75.2); PLT 245 X1000 (130-400); RBC 4.59 XMIL (4.7-6.1); RDW 16.8 % (11.5-14.5)
--- NOTE | 2019-05-18 01:54 | PROVIDER DOCUMENTATION ---
This chart was entered by Zenaida Foster Scribe, acting as scribe for Caro Poole MD. HPI-General Adult <NoahDwight Palak. - Last Filed: 05/18/19 05:08> - General Source: EMS Unable to obtain history due to:: altered (pt alert, non verbal, hx dementia/alzhiemers) - History of Present Illness -Gen Adult Nature of Presenting Problems: pt is a 89 yr old male presenting via EMS from [facility] with report of shortness of breath, possible aspiration. staff reported to EMS that pt is to be on thickened liquids only, pt roommate/friend gave pt regular water today and he has been coughing since. Has coarse breath sounds and significant rhonchi. Onset/Duration: reports: this evening Timing: reports: still present Modifying Factors: improves with: lying down (worsens symptoms) Associated Symptoms: reports: cough, fever/chills, shortness of breath <Caro Poole - Last Filed: 05/27/19 01:15> - General Stated Complaint: sob Time Seen by Provider: 05/18/19 00:55 Allergies/Adverse Reactions: Patient Allergies Allergy/AdvReac Type Severity Reaction Status Date / Time No Known Allergies Allergy Verified 02/28/19 16:15 Home Medications: Home Medication List Medication Instructions Recorded Confirmed Last Taken Type Acetaminophen 325 mg PO Q4-6H PRN PRN 01/08/19 05/18/19 1 Day Ago History ~02/16/19 Calcium Carbonate/Vitamin D3 1 tab PO DAILY 01/08/19 05/18/19 1 Day Ago History [Calcium 600 + Vit D 400 Softgl] ~02/16/19 Escitalopram [Lexapro] 10 mg PO DAILY 01/08/19 05/18/19 1 Day Ago History ~02/16/19 Multivitamin with Folic Acid 400 mcg PO DAILY 01/08/19 05/18/19 1 Day Ago History [Thera Tablet] ~02/16/19 Oxybutynin [Ditropan] 5 mg PO BID 01/08/19 05/18/19 1 Day Ago History ~02/16/19 Apixaban [Eliquis] 2.5 mg PO BID #60 tab 01/15/19 05/18/19 1 Day Ago Rx ~02/16/19 Omeprazole [Prilosec] 20 mg PO DAILY 02/28/19 05/18/19 Unknown History Albuterol 2.5MG/Ipratrop 0.5MG 3 ml INH RTQ4H neb 03/12/19 05/18/19 Unknown Rx [Duoneb (A & A)] Bisacodyl [Dulcolax] 10 mg SD DAILY supp 03/12/19 05/18/19 Unknown Rx Digoxin [Digox] 125 mcg PO DAILY #30 tab 03/12/19 05/18/19 Unknown Rx Metoprolol [Lopressor] 50 mg PO BID tab 03/12/19 05/18/19 Unknown Rx Polyethylene Glycol 3350 [Miralax] 17 gm PO DAILY powder, packet 03/12/19 05/18/19 Unknown Rx Mirtazapine [Remeron] 15 mg PO BID 05/18/19 05/18/19 Unknown History Review of Systems - Adult - REVIEW OF SYSTEMS - ADULT ROS:: unobtainable per condition Constitutional: reports: fever Eyes: reports: no symptoms reported Ears, Nose, Mouth & Throat: reports: no symptoms reported Cardiovascular: reports: no symptoms reported Respiratory: reports: cough, shortness of breath Gastrointestinal: reports: no symptoms reported Genitourinary: reports: no symptoms reported Musculoskeletal: reports: no symptoms reported Integumentary: reports: no symptoms reported Neurological: reports: no symptoms reported Psychiatric: reports: no symptoms reported Endocrine: reports: no symptoms reported Hematologic/Lymphatic: reports: no symptoms reported Allergic/Immunologic: reports: no symptoms reported All Other Systems: Reviewed and Negative <Caro Poole - Last Filed: 05/27/19 01:15> Past History - Adult - PAST MEDICAL HISTORY-ADULT Review of Records: reports: Old Records Reviewed, Nursing Assessment Review, Medications Reviewed, Social history reviewed & non-contributory. Major Childhood Illnesses: reports: denies history Cardiovascular: reports: A-Fib, arrhythmia, CAD, hyperlipidemia Respiratory: reports: COPD Gastrointestinal: reports: denies history Obstetrical/Gynecological: reports: denies history Genitourinary: reports: kidney disease Musculoskeletal: reports: denies history Neurological: reports: dementia Endocrine/Immune: reports: denies history Other Conditions: reports: denies history - PRIOR SURGERIES/PROCEDURES Surgical/Procedure History: reports: appendectomy, CABG, other (ear implants) - IMMUNIZATION STATUS Childhood Immunizations: See Nurse Assessment Flu Vaccine: See Nurse Assessment - FAMILY HISTORY Family History: reviewed, not pertinent - SOCIAL HISTORY Smoking: quit greater than 1 year Substance Use: denies Living Situation: care facility ([facility]) <Caro Poole - Last Filed: 05/27/19 01:15> Physical Exam-General - PHYSICAL EXAM-ADULT Initial Vital Signs Reviewed: Yes - CONSTITUTIONAL General Appearance: alert, no apparent distress, thin, other (no verbal response) - HEAD, EARS, NOSE, MOUTH & THROAT HENMT: normocephalic/atraumatic, moist mucous membranes - NECK Neck: non-tender, full range of motion, supple - RESPIRATORY Respiratory: chest non-tender, rhonchi (coarse rhonchi bilaterally) - CARDIOVASCULAR Cardiovascular: normal peripheral pulses, tachycardia - GASTROINTESTINAL (ABDOMEN) Abdominal Exam: normal bowel sounds, non tender, soft, no organomegaly - LYMPHATIC Lymphatic: no adenopathy - MUSCULOSKELETAL Back Exam: normal inspection Extremity: non-tender - SKIN Integumentary: warm/dry, other (BLE venistasis changes) - NEUROLOGIC Neurologic: grossly normal <Caro Poole - Last Filed: 05/27/19 01:15> Progress - PLAN OF CARE/RESULTS Progress/Plan/Lab Results: Vital Signs - 8 hr 05/18/19 01:00 05/18/19 01:02 05/18/19 01:28 Temperature 101.1 F H Pulse Rate 115 H 105 H 108 H Respiratory Rate 49 H 48 H 40 H Blood Pressure 120/67 120/67 O2 Sat by Pulse Oximetry 92 L 94 L 97 05/18/19 02:15 Temperature Pulse Rate 117 H Respiratory Rate 42 H Blood Pressure O2 Sat by Pulse Oximetry 92 L Laboratory Results - last 24 hr 05/18/19 05/18/19 05/18/19 01:25 01:25 01:25 WBC 5.60 RBC 4.59 L Hgb 12.1 L Hct 39.9 L MCV 86.9 MCH 26.4 L MCHC 30.3 L RDW Std Deviation 16.8 H Plt Count 245 MPV 10.1 Immature Gran % (Auto) 0.4 Neut % (Auto) 87.2 H Lymph % (Auto) 9.3 L Ogle % (Auto) 2.9 Eos % (Auto) 0.0 Baso % (Auto) 0.2 Immature Gran # (Auto) 0.02 Neut # (Auto) 4.89 Lymph # (Auto) 0.52 L Ogle # (Auto) 0.16 Eos # (Auto) 0.00 Baso # (Auto) 0.01 PT INR PTT (Actin FS) Specimen Type Sample Site pH pCO2 pO2 HCO3 Base Excess Oxyhemoglobin ABG O2 Sat (Calculated) ABG O2 Saturation ABG Carboxyhemoglobin ABG Methemoglobin Dutch Test A-a O2 Difference Total Hemoglobin Lactate Liter Flow Blood Gas Modality FiO2 % Sodium 142 Potassium 4.5 Chloride 104 Carbon Dioxide 22 L Anion Gap 16 BUN 25 H Creatinine 1.3 H Estimated GFR/1.73 m2 52 BUN/Creatinine Ratio 19 Glucose 153 H Calculated Osmolality 291 Calcium 8.6 L Total Bilirubin 0.47 AST 23 ALT 10 Alkaline Phosphatase 76 Creatine Kinase 110 Troponin T High Sens Qxg-G-Ajcstviqvyg Pept 1067 H Total Protein 6.6 Albumin 3.8 Globulin 2.8 Albumin/Globulin Ratio 1.4 Plasma Lactate TSH Urine Source Urine Color Urine Turbidity Urine pH Ur Specific [place] Urine Protein Ur Glucose (Stick) Ur Ketones (Stick) Urine Blood Urine Nitrite Urine Bilirubin Urobilinogen Dipstick Urine Leukocytes Urine WBC (Auto) Urine RBC (Auto) U Epithel Cells (Auto) Urine Bacteria (Auto) 05/18/19 05/18/19 05/18/19 01:25 01:25 01:25 WBC RBC Hgb Hct MCV MCH MCHC RDW Std Deviation Plt Count MPV Immature Gran % (Auto) Neut % (Auto) Lymph % (Auto) Ogle % (Auto) Eos % (Auto) Baso % (Auto) Immature Gran # (Auto) Neut # (Auto) Lymph # (Auto) Ogle # (Auto) Eos # (Auto) Baso # (Auto) PT 16.7 H INR 1.33 PTT (Actin FS) 37.3 Specimen Type Sample Site pH pCO2 pO2 HCO3 Base Excess Oxyhemoglobin ABG O2 Sat (Calculated) ABG O2 Saturation ABG Carboxyhemoglobin ABG Methemoglobin Dutch Test A-a O2 Difference Total Hemoglobin Lactate Liter Flow Blood Gas Modality FiO2 % Sodium Potassium Chloride Carbon Dioxide Anion Gap BUN Creatinine Estimated GFR/1.73 m2 BUN/Creatinine Ratio Glucose Calculated Osmolality Calcium Total Bilirubin AST ALT Alkaline Phosphatase Creatine Kinase Troponin T High Sens 24 H Xdq-R-Fruukblpnfz Pept Total Protein Albumin Globulin Albumin/Globulin Ratio Plasma Lactate TSH 3.39 Urine Source Urine Color Urine Turbidity Urine pH Ur Specific [place] Urine Protein Ur Glucose (Stick) Ur Ketones (Stick) Urine Blood Urine Nitrite Urine Bilirubin Urobilinogen Dipstick Urine Leukocytes Urine WBC (Auto) Urine RBC (Auto) U Epithel Cells (Auto) Urine Bacteria (Auto) 05/18/19 05/18/19 05/18/19 01:25 02:06 03:24 WBC RBC Hgb Hct MCV MCH MCHC RDW Std Deviation Plt Count MPV Immature Gran % (Auto) Neut % (Auto) Lymph % (Auto) Ogle % (Auto) Eos % (Auto) Baso % (Auto) Immature Gran # (Auto) Neut # (Auto) Lymph # (Auto) Ogle # (Auto) Eos # (Auto) Baso # (Auto) PT INR PTT (Actin FS) Specimen Type ARTERIAL Sample Site R RADIAL pH 7.39 pCO2 38 pO2 63 HCO3 23.5 Base Excess -1.7 Oxyhemoglobin 91.8 L ABG O2 Sat (Calculated) 15.9 ABG O2 Saturation 94.3 L ABG Carboxyhemoglobin 1.80 ABG Methemoglobin 0.8 Dutch Test YES A-a O2 Difference 603.0 Total Hemoglobin 12.3 Lactate 4.40 H* Liter Flow 15.0 Blood Gas Modality NRB FiO2 % 100.0 Sodium Potassium Chloride Carbon Dioxide Anion Gap BUN Creatinine Estimated GFR/1.73 m2 BUN/Creatinine Ratio Glucose Calculated Osmolality Calcium Total Bilirubin AST ALT Alkaline Phosphatase Creatine Kinase Troponin T High Sens Fqu-P-Szvivaxuinz Pept Total Protein Albumin Globulin Albumin/Globulin Ratio Plasma Lactate 3.1 H TSH Urine Source CATH Urine Color YELLOW Urine Turbidity CLEAR Urine pH 6.0 Ur Specific [place] 1.021 Urine Protein TRACE A Ur Glucose (Stick) NEGATIVE Ur Ketones (Stick) NEGATIVE Urine Blood NEGATIVE Urine Nitrite NEGATIVE Urine Bilirubin NEGATIVE Urobilinogen Dipstick NORMAL Urine Leukocytes NEGATIVE Urine WBC (Auto) <10 Urine RBC (Auto) <10 U Epithel Cells (Auto) <10 Urine Bacteria (Auto) NEGATIVE Orders Category Date Time Status Cardiac Monitoring DIRECTED Care 05/18/19 01:13 Active IV Insertion ORDERED Care 05/18/19 01:13 Completed Notify MD of + Sepsis Screen NOW Care 05/18/19 01:13 Active Notify Physician As Ordered Care 05/18/19 01:13 Active CHEST-1 VIEW [RAD] Stat Exams 05/18/19 00:56 Taken ABG [RESP] Routine Lab 05/18/19 02:06 Completed BLOOD CULTURE [BLDCUL] Stat Lab 05/18/19 01:25 Results CBC WITH ELECTRONIC DIFF [HEME] Stat Lab 05/18/19 01:25 Completed CK PROFILE [SP CHEM] Stat Lab 05/18/19 01:25 Completed COMPREHENSIVE METABOLIC PANEL [CHEM] Stat Lab 05/18/19 01:25 Completed INFLUENZA SCREEN A/B Stat Lab 05/18/19 01:28 Received LACTATE, PLASMA [CHEM] Lab 05/18/19 04:15 Uncollected LACTATE, PLASMA [CHEM] Lab 05/18/19 07:15 Uncollected LACTATE, PLASMA [CHEM] Q3H Lab 05/18/19 01:25 Completed PRO B-NATRIURETIC PEPTIDE Stat Lab 05/18/19 01:25 Completed PROTIME WITH INR [COAG] Stat Lab 05/18/19 01:25 Completed PTT [COAG] Stat Lab 05/18/19 01:25 Completed TROPONIN T HIGH SENSITIVITY Stat Lab 05/18/19 01:25 Completed TSH Stat Lab 05/18/19 01:25 Completed URINALYSIS W/POSS RFLX CULT [URINALYSIS] Stat Lab 05/18/19 03:24 Completed Acetaminophen Liquid [Tylenol Liquid] Med 05/18/19 04:34 Discontinued 1,000 mg PO NOW ONE Albuterol 2.5MG/Ipratrop 0.5MG [Duoneb (A & A)] Med 05/18/19 01:17 Discontinued 3 ml INH NOW ONE Piperacillin/Tazobactam [Zosyn] 3.375 gm Med 05/18/19 01:17 Discontinued 0.9% Sodium Chloride Inj [Ns] 50 ml IV NOW Aerosol Treatments Routine Oth 05/18/19 01:17 Completed Aerosol Treatments Stat Oth 05/18/19 01:17 Completed Oxygen Device Stat Oth 05/18/19 01:13 Completed EKG [EKG] Stat Ther 05/18/19 00:55 Draft Result Diagrams: 05/18/19 01:25 05/18/19 01:25 - CONSULTS/PCP/HOSPITALIST Notification #1 *Consult/PCP/Hospitalist*: Dr Marte Time Discussed: 05:08 Consult Disposition: Will see in ED, Admit <Dwight Zamora - Last Filed: 05/18/19 05:08> - PLAN OF CARE/RESULTS Progress/Plan/Lab Results: Orders Category Date Time Status CHEST-1 VIEW [RAD] Stat Exams 05/18/19 00:56 Ordered CBC WITH ELECTRONIC DIFF [HEME] Stat Lab 05/18/19 00:55 Uncollected COMPREHENSIVE METABOLIC PANEL [CHEM] Stat Lab 05/18/19 00:55 Uncollected INFLUENZA SCREEN A/B Stat Lab 05/18/19 00:55 Uncollected PRO B-NATRIURETIC PEPTIDE Stat Lab 05/18/19 00:55 Ordered TSH Stat Lab 05/18/19 00:55 Uncollected URINALYSIS W/POSS RFLX CULT [URINALYSIS] Stat Lab 05/18/19 00:56 Uncollected EKG [EKG] Stat Ther 05/18/19 00:55 Ordered Result Diagrams: 05/20/19 03:30 05/20/19 03:30 - XRAY 1 XRAY Study: Chest Impression: See EMR Report (CHEST-1 VIEW - 05/18/2019 INDICATION: SOB COMPARISON: 03/11/2019 FINDINGS: Stable CABG changes. Heart size is top normal. There are patchy ill-defined infiltrates in both lung bases and in the right midlung. No pneumothorax or pleural effusion. Lungs are normally expanded. IMPRESSION: Patchy multifocal infiltrates bilaterally. Correlate clinically. Electronically signed by Ruben Stone 05/18/2019 6:20 AM) <Caro Poole - Last Filed: 05/27/19 01:15> Departure - Departure Date of Disposition Decision: 05/18/19 Time of Disposition Decision: 05:03 Certified Medical Emergency: Emergent - Critical Care Note This patient required my direct & personal management of CC.: No <Dwight Zamora - Last Filed: 05/18/19 05:08> - Departure Certified Medical Emergency: Emergent - Critical Care Note This patient required my direct & personal management of CC.: No <Caro Poole - Last Filed: 05/27/19 01:15> - Departure DIAGNOSIS: CHF (congestive heart failure), Pneumonia, Dyspnea Disposition: ADMITTED INPATIENT 09 Condition: Fair Attestation - Physician/ ELLIOTT Attestation Patient care was provided by Advanced Practice Provider:: No The physician spent face to face time with patient:: Yes Advanced Practice Provider documentation review:: Supervising physician onsite and consulted in the evaluation and care of this patient. The physician did have a face to face encounter with the patient. <Dwight Zamora - Last Filed: 05/18/19 05:08> - Physician/ ELLIOTT Attestation Patient care was provided by Advanced Practice Provider:: No The physician spent face to face time with patient:: Yes Advanced Practice Provider documentation review:: Supervising physician onsite and consulted in the evaluation and care of this patient. The physician did have a face to face encounter with the patient. <Caro Poole - Last Filed: 05/27/19 01:15> This chart was documented by the indicated scribe, (Zenaida Foster Scribe) and accurately reflects the services I performed and decisions made by me, Caro Poole MD, as attested by the provider's signature.
[2019-05-18 01:55] LABS: INR 1.33; PROTIME 16.7 Seconds (11.0-16.0)
[2019-05-18 01:56] LABS: PTT 37.3 Seconds (22.3-41.8)
[2019-05-18 02:25] LABS: ALB/GLOB RATIO 1.4; ALBUMIN 3.8 g/dL (3.5-5.0); CALCIUM 8.6 mg/dL (8.8-10.2); CREATININE 1.3 mg/dL (0.7-1.2); POTASSIUM 4.5 mmol/L (3.5-5.1); TOTAL BILIRUBIN 0.47 mg/dL (0.20-1.00); TOTAL PROTEIN 6.6 g/dL (6.3-8.3)
[2019-05-18 02:28] LABS: ALLEN TEST YES; BE -1.7 mmoll (-3.0-3.0); BLOOD TYPE ARTERIAL; HCO3-(ACT) 23.5 mmoll (20.0-26.0); METHB 0.8 % (0.0-1.5); MODALITY NRB; O2(CT) 15.9 mL/dL (15.0-23.0); O2HB 91.8 % (95.0-99.0); PCO2(98.6) 38 mmHg (35-45); PO2(98.6) 63 mmHg (60-100); SAMPLE BLOOD; SAO2 94.3 % (95.0-100.0); THB 12.3 g/dL (11.5-17.4); pH(98.6) 7.39 (7.35-7.45)
[2019-05-18 03:31] LABS: URINE SOURCE CATH
[2019-05-18 03:35] LABS: BILIRUBIN URINE NEGATIVE (NEGATIVE); BLOOD URINE NEGATIVE (NEGATIVE); COLOR YELLOW; GLUCOSE URINE NEGATIVE (NEGATIVE); KETONE URINE NEGATIVE (NEGATIVE); LEUKOCYTES URINE NEGATIVE (NEGATIVE); NITRITE URINE NEGATIVE (NEGATIVE); PROTEIN URINE TRACE mg/dL (NEGATIVE); SP GRAVITY URINE 1.021; TURBIDITY URINE CLEAR (CLEAR); UROBILINOGEN URINE NORMAL (NORMAL)
[2019-05-18 03:36] LABS: UR EPITHELIAL CELLS <10 /HPF (<10); URINE BACTERIA NEGATIVE /HPF; URINE RBC <10 /HPF (<10); URINE WBC <10 /HPF (<10)
[2019-05-18] MEDS ORDERED: TYLENOL PO ONE (04:07)
[2019-05-18] MEDS ORDERED: TYLENOL PR ONE (04:07)
[2019-05-18] MEDS ORDERED: TYLENOL LIQUID PO ONE (04:34)
--- NOTE | 2019-05-18 05:02 | EKG Report ---
Test Performed on : 05/18/2019 02:13:38 AM Test Reason : CP Blood Pressure : / mmHG Vent. Rate : 117 BPM Atrial Rate : 117 BPM P-R Int : 154 ms QRS Dur : 068 ms QT Int : 316 ms P-R-T Axes : 089 020 -51 degrees QTc Int : 440 ms Sinus tachycardia. Septal infarct , age undetermined ST & T wave abnormality, consider inferior ischemia ST & T wave abnormality, consider anterior ischemia Abnormal ECG When compared with ECG of 07-MAR-2019 14:58, Sinus rhythm. has replaced Atrial flutter. T wave inversion now evident in Inferior leads T wave inversion now evident in Anterior leads Unconfirmed Result
[2019-05-18] MEDS ORDERED: NS 1,000 ML IV ONE (05:04)
[2019-05-18] MEDS ORDERED: TYLENOL PO PRN (05:23)
--- NOTE | 2019-05-18 06:22 | Diag Imaging Result Doc PS360 ---
CHEST-1 VIEW - 05/18/2019 INDICATION: SOB COMPARISON: 03/11/2019 FINDINGS: Stable CABG changes. Heart size is top normal. There are patchy ill-defined infiltrates in both lung bases and in the right midlung. No pneumothorax or pleural effusion. Lungs are normally expanded. IMPRESSION: Patchy multifocal infiltrates bilaterally. Correlate clinically. Electronically signed by Ruben Stone 05/18/2019 6:20 AM
[2019-05-18] MEDS: MERREM 500 MG in NS 50 ML IV SCH ×3 (06:24→20:30)
[2019-05-18] MEDS: NS 1,000 ML IV SCH ×3 (06:24→16:58)
--- NOTE | 2019-05-18 06:47 | HISTORY AND PHYSICAL ---
PRIMARY CARE PROVIDER: Glenn Blanco MD CHIEF COMPLAINT: Per family at bedside, aspiration. HISTORY OF PRESENT ILLNESS: Mr. Zuniga is an 89-year-old gentleman from [facility], who was a DNR level 1 whose family reported that he has not been looking well over the past couple of days. Initially, they have been worried about a urinary tract infection. However, today they got called around lunchtime saying that he had spiked a fever, and possibly aspirated on some water that was given to him. He is supposed to be on thickened liquids. However, he also was given chicken noodle soup as well so they are not sure what he aspirated on. They felt that he had not been doing well two days prior as well, but there was no reported fever at that time. Workup in the ED revealed has a positive lactate. He ruled in for sepsis. He was febrile at 101.1, tachycardic, tachypneic as well as hypoxemic. He does have a history of ESBL pneumonia as well as aspiration pneumonia and hearing impairment. He usually wears hearing aids, however, he does not have any senile dementia, atrial fibrillation, coronary artery disease status post CABG, chronic constipation, and chronic anticoagulation. He will be admitted and treated for sepsis and aspiration pneumonia. We will switch his antibiotics to Zyvox and meropenem given his history of ESBL pneumonia. Continue with treatment and management. PAST MEDICAL HISTORY: Hearing impairment status post implants. Dementia. Atrial fibrillation. Coronary disease status post CABG. ESBL pneumonia in 2019. Chronic constipation. Chronic anticoagulation. PAST SURGICAL HISTORY: Appendectomy, CABG, and ear implants. FAMILY HISTORY: Unknown. SOCIAL HISTORY: He is a resident of [facility]. Daughter is at bedside. No tobacco, alcohol or illicit drug use. He is a . He has another daughter as well. ALLERGIES: No known drug allergies. MEDICATIONS: Home medications are being compiled. LABORATORY DATA: White count 5, hemoglobin and hematocrit 12 and 39, and platelet count 245,000. First plasma lactate was 3.1. Sodium 142, potassium 4.5, BUN 25, creatinine 1.3, and blood glucose is 153. Urinalysis is negative. REVIEW OF SYSTEMS: Completely negative except for those mentioned in HPI. PHYSICAL EXAMINATION: VITAL SIGNS: Temperature got up to 102.3, heart rate 98, respirations 29, blood pressure 120/67, and O2 is 95% on nonrebreather. GENERAL: Mr. Zuniga is an ill-appearing 89-year-old male who is lying on the stretcher resting in no acute distress. HEENT: Atraumatic, normocephalic. PERRL. NECK: Supple. Trachea midline. CARDIOVASCULAR: S1, S2 appreciated. No murmurs, gallops, or rubs noted. RESPIRATORY: Lung sounds coarse throughout all lung giron, and are actually audible as well. GI: Flat and soft. Appears to be nontender, nondistended. Positive bowel sounds 4 quadrants. EXTREMITIES: Lower extremities are negative for edema. He does appear to have some peripheral vascular disease. NEUROLOGIC: He does wake up. He does not have his hearing aids in, and he could not hear to follow any commands. However, he did just fall right back to sleep. SKIN: He does appear to have some bruises and maybe some skin tears to both upper extremities. ASSESSMENT AND PLAN: 1. Sepsis secondary to aspiration pneumonia. He has had one lactate currently awaiting the second. He did receive a L fluid bolus started on broad-spectrum antibiotics which we will change those over given his history of ESBL pneumonia. 2. Aspiration pneumonia. We will continue on Zyvox and meropenem. Aggressive pulmonary toilet. Supplemental O2 and bronchodilators. We will have a swallow evaluation. He is supposed to be on nectar thickened liquids. 3. Acute hypoxemic respiratory failure. Patient is now on non-rebreather. O2 sats are improved. 4. Acute kidney injury. We will continue with IV fluids gently. 5. Hearing impairment status post implants. He does not have those in at this time. 6. Dementia. We will continue home medications when verified. 7. Atrial fibrillation. We will continue digoxin and blood thinners when appropriate. 8. Coronary artery disease status post CABG. 9. Chronic constipation. 10. Further recommendation to follow physician evaluation, laboratory and diagnostic data. Code status is DNR level 1. Dictated by DAVIDA Rodriguez for Bj Fernández MD cc: MD Glenn Bryant MD MTDD
[2019-05-18] MEDS: ZYVOX 600 MG/D5W 600 MG/300 ML IVPB IV SCH ×2 (07:10→16:58)
[2019-05-18] MEDS: NS 1,000 ML IV ONE ×2 (07:20→07:56)
[2019-05-18] MEDS ORDERED: LR 1,000 ML IV ONE (08:12)
--- NOTE | 2019-05-18 08:27 | EKG Report ---
Test Performed on : 05/18/2019 08:18:40 AM Test Reason : Follow up heart rhythm Blood Pressure : / mmHG Vent. Rate : 078 BPM Atrial Rate : 071 BPM P-R Int : 000 ms QRS Dur : 076 ms QT Int : 374 ms P-R-T Axes : 000 035 012 degrees QTc Int : 426 ms Atrial fibrillation. Septal infarct (cited on or before 18-MAY-2019) Abnormal ECG When compared with ECG of 18-MAY-2019 02:13, (Unconfirmed) Atrial fibrillation. has replaced Sinus rhythm. Vent. rate has decreased BY [address] no longer depressed in Anterolateral leads T wave inversion no longer evident in Inferior leads Nonspecific T wave abnormality no longer evident in Lateral leads Confirmed by Roderick HOFFMAN, Khris Slater ([id number]) on 05/18/2019 12:08:53 PM
[2019-05-18] MEDS: DUONEB (A & A) INH SCH ×5 (08:37→23:40)
[2019-05-18] MEDS ORDERED: LEVOPHED 8 MG in D5 1/2 NS 250 ML IV SCH (09:30)
[2019-05-18] MEDS: PROTONIX IV SCH (09:44)
[2019-05-18] MEDS: DULCOLAX PR SCH (09:55)
[2019-05-18] MEDS: MIRALAX PO SCH (09:55)
[2019-05-18] MEDS: THERA M PLUS PO SCH (09:56)
[2019-05-18] MEDS ORDERED: LOVENOX SUBQ ONE (10:00)
[2019-05-18] MEDS ORDERED: LOVENOX SUBQ SCH (10:00)
--- NOTE | 2019-05-18 10:45 | PROGRESS NOTE ---
DATE: 05/18/2019 I evaluated the patient in the emergency room. I was paged that his blood pressure was extremely low. When I saw him, his systolic blood pressure was in the 70s and MAP was in the 50s. I immediately ordered a second and third liter of intravenous fluid boluses. Mr. Zuniga is hard of hearing. He appears lethargic, though he is arousable. He is not in any respiratory distress at the moment, though he is on 100% nonrebreather mask. VITALS: Temperature of 99 degrees, pulse of 86, respiratory rate 33, blood pressure 68/40. He is saturating 96% on nonrebreather mask. PHYSICAL EXAMINATION: His oral cavity is dry. Lungs: Air entry appears bilaterally equal in the supramammary region. No wheeze or rhonchi. He has crackles in the infrascapular region. S1, S2 normal. Regular. No murmur, rub, or gallop. Abdomen is soft, nontender. No lower extremity edema. He is arousable to strong verbal stimuli but he is hard of hearing. LABORATORY DATA: He continues to have worsening lactic acidosis. I have ordered a urine catheter. ASSESSMENT AND PLAN: 1. Septic shock due to bilateral aspiration pneumonia. 2. Acute hypoxic respiratory failure due to bilateral aspiration pneumonia. 3. Lactic acidosis, acute kidney injury due to septic shock. 4. Prior history of extended-spectrum B-lactamase Escherichia coli pneumonia and sepsis. 5. History of paroxysmal atrial fibrillation, on chronic anticoagulation, coronary artery disease, and coronary artery bypass graft. PLAN: 1. Continue intravenous meropenem and intravenous linezolid. He has so far received 3 L of intravenous boluses. I will keep him on intravenous fluids as a maintenance. Follow up with chest x-ray in the afternoon to make sure he is not developing pulmonary edema. I will start him on norepinephrine to maintain MAP more than 65 mmHg. 2. Mr. Zuniga' condition is critical. More than 30 minutes of critical care time were spent in taking care of him. I changed his admission orders from medical floor to ICU. I called his daughter, informed her about Mr. Zuniga' clinical condition and the need for life support. I answered all of her questions. His code status is a Do Not Resuscitate level 1. cc: Leo Strauss MD ADDENDUM: I evaluated him in ICU. He looks comfortable and not in distress. He has been started on Norepinephrine and has been maintaining MAP>65 mmHg. His urine output has picked up. Hopefully his lactic acidosis will improve. I discussed with the nurse about monitoring respiratory status. I will consider BiPap or Lasix based on O2 sats. Repeat CXR reviewed and suggests bilateral pulmonary edema. MTDD
[2019-05-18 10:57] LABS: URINE SOURCE CATH
[2019-05-18 11:08] LABS: BILIRUBIN URINE NEGATIVE (NEGATIVE); BLOOD URINE NEGATIVE (NEGATIVE); COLOR YELLOW; GLUCOSE URINE NEGATIVE (NEGATIVE); KETONE URINE TRACE mg/dL (NEGATIVE); LEUKOCYTES URINE NEGATIVE (NEGATIVE); NITRITE URINE NEGATIVE (NEGATIVE); PROTEIN URINE TRACE mg/dL (NEGATIVE); SP GRAVITY URINE 1.038; TURBIDITY URINE HAZY (CLEAR); UROBILINOGEN URINE NORMAL (NORMAL)
[2019-05-18 11:23] LABS: UR EPITHELIAL CELLS >10 /HPF (<10); URINE BACTERIA NEGATIVE /HPF; URINE WBC <10 /HPF (<10)
[2019-05-18 11:40] LABS: URINE CASTS NONE SEEN
[2019-05-18 11:41] LABS: URINE SMALL ROUND CELLS NONE SEEN
[2019-05-18] MEDS: LANOXIN PO SCH (12:49)
--- NOTE | 2019-05-18 14:03 | Diag Imaging Result Doc PS360 ---
CHEST-PORTABLE - 05/18/2019 INDICATION: Rule out worsening pulmonary edema COMPARISON: 05/18/2019 FINDINGS: There is worsening diffuse infiltrate bilaterally. Stable sternotomy wires. Stable mild cardiomegaly. No large pleural effusion. IMPRESSION: Worsening infiltrates bilaterally compatible with worsening pulmonary edema. Electronically signed by Ruben Stone 05/18/2019 2:01 PM
[2019-05-18 16:43] LABS: CALCIUM 8.1 mg/dL (8.8-10.2); CREATININE 1.7 mg/dL (0.7-1.2); POTASSIUM 3.9 mmol/L (3.5-5.1)
[2019-05-19] MEDS: DUONEB (A & A) INH SCH ×6 (03:30→23:30)
[2019-05-19] MEDS: MERREM 500 MG in NS 50 ML IV SCH ×3 (04:57→21:46)
[2019-05-19] MEDS: ZYVOX 600 MG/D5W 600 MG/300 ML IVPB IV SCH ×2 (04:57→17:44)
[2019-05-19 05:21] LABS: BASO# 0.01 X1000 (0.0-0.2); BASO% 0.1 % (0.0-0.8); EOS# 0.11 X1000 (0.0-0.7); HEMATOCRIT 33.6 % (42.0-52.0); HEMOGLOBIN 10.2 g/dL (14.0-18.0); IMM GRAN# 0.92 X1000 (0.0-0.04); IMM GRAN% 8.4 % (0.0-0.5); LYMPH# 0.61 X1000 (1.2-3.4); LYMPH% 5.6 % (20.5-51.1); MCH 26.2 PG (27-31); MCHC 30.4 g/dL (33-37); MCV 86.4 FL (81-99); MONO% 1.8 % (1.7-9.3); MPV 9.8 FL (7.4-10.4); NEUT# 9.08 X1000 (1.4-6.5); NEUT% 83.1 % (42.2-75.2); PLT 171 X1000 (130-400); RBC 3.89 XMIL (4.7-6.1); RDW 16.9 % (11.5-14.5); WBC 10.93 X1000 (4.8-10.8)
[2019-05-19 05:29] LABS: ALB/GLOB RATIO 0.9; ALBUMIN 2.6 g/dL (3.5-5.0); CREATININE 1.5 mg/dL (0.7-1.2); TOTAL BILIRUBIN 0.49 mg/dL (0.20-1.00); TOTAL PROTEIN 5.4 g/dL (6.3-8.3)
[2019-05-19 07:07] LABS: BANDS 18 % (0-1); LYMPHS 1 % (21-51); MONO 7 % (1-9); SEGS 71 % (42-75)
--- NOTE | 2019-05-19 07:28 | Diag Imaging Result Doc PS360 ---
EXAM: CHEST-PORTABLE INDICATION: Pneumonia TECHNIQUE: One view COMPARISON: 05/18/2019 FINDINGS: Diffuse infiltrate on the right is approximately stable. There is milder infiltrate in the left midlung zone that may have worsened marginally. No other new consolidation is identified. Cardiac silhouette is stable. IMPRESSION: Questionable marginal worsening of infiltrate on the left but stable on the right. Electronically signed by Richard Howard 05/19/2019 7:26 AM
[2019-05-19] MEDS: PROTONIX IV SCH (07:45)
[2019-05-19] MEDS: SODIUM CHLORIDE 0.9% INJ SCH (07:45)
[2019-05-19] MEDS ORDERED: ELIQUIS PO SCH (09:00)
[2019-05-19] MEDS: DULCOLAX PR SCH (10:16)
[2019-05-19] MEDS: LANOXIN PO SCH (10:20)
[2019-05-19] MEDS: THERA M PLUS PO SCH (10:21)
[2019-05-19] MEDS: MIRALAX PO SCH (10:21)
[2019-05-19] MEDS: LOVENOX SUBQ SCH ×2 (11:45→21:46)
[2019-05-19] MEDS: LANOXIN IV SCH (12:00)
[2019-05-19] MEDS: NS 1,000 ML IV SCH (12:39)
[2019-05-19] MEDS: CARDIZEM 100 MG/NS 100 MG/100 ML IVPB IV SCH ×2 (16:14→21:25)
[2019-05-19] MEDS ORDERED: CLINIMIX E 4.25%-5% SOLUTION 1,000 ML IV SCH (21:45)
[2019-05-19] MEDS ORDERED: NS 50 ML ONE (21:46)
--- NOTE | 2019-05-19 21:59 | PROGRESS NOTE ---
DATE: 05/19/2019 SUBJECTIVE: The patient is resting comfortably in bed. He is currently on a Ventimask. OBJECTIVE: Vital Signs: Temperature 98.7 degrees, blood pressure 106/54, heart rate 124, respirations 30, O2 saturation is 92% on a Ventimask. Intake 4 L, output 780. General: This is a chronically ill-appearing, elderly male, lying in bed in no acute distress. Heart: S1, S2 normal. Tachycardic. Lungs: Coarse breath sounds. Abdomen: Positive bowel sounds. Soft, nontender, nondistended. Extremities: No edema. No cyanosis. Neurologic: Very hard of hearing, but awake. He does have dementia. LABORATORY AND DIAGNOSTIC DATA: White blood cell count 10, hemoglobin 10, hematocrit 33, platelets 171,000. Sodium 143, potassium 4, chloride 109, CO2 of 18, BUN 30, creatinine 1.5, glucose 74. AST 34, ALT 9, lactate 4.6. Chest x-ray shows marginal worsening of the infiltrate on the left, but stable on the right. ASSESSMENT AND PLAN: 1. Acute hypoxemic respiratory failure. Likely secondary to the patient's underlying pneumonia. We will continue to treat the underlying infection, continue with supplemental oxygen and bronchodilator therapy. 2. Bilateral lobe pneumonia, likely aspiration. The patient is on meropenem and Zyvox. Continue with bronchodilator therapy. 3. Dysphagia. The patient failed the swallow evaluation today. He is currently NPO. 4. Atrial fibrillation. The patient's heart rate is elevated. We will start a Cardizem drip. Continue on digoxin and full-dose Lovenox. 5. Constipation. Improved. Continue with laxative therapy. 6. Dementia. Aware. 7. Disposition. The patient is critically ill with a high risk of mortality. The patient is currently a DNR level 1. I updated the patient's daughter this morning at the bedside and all of her questions were answered. cc: Joy Stark MD
[2019-05-20] MEDS: DUONEB (A & A) INH SCH ×4 (03:30→15:50)
[2019-05-20 04:05] LABS: BASO# 0.02 X1000 (0.0-0.2); BASO% 0.1 % (0.0-0.8); EOS# 0.01 X1000 (0.0-0.7); EOS% 0.1 % (0.0-10.0); HEMATOCRIT 35.2 % (42.0-52.0); HEMOGLOBIN 10.9 g/dL (14.0-18.0); IMM GRAN# 0.14 X1000 (0.0-0.04); IMM GRAN% 0.8 % (0.0-0.5); LYMPH# 0.37 X1000 (1.2-3.4); LYMPH% 2.2 % (20.5-51.1); MCH 26.3 PG (27-31); MONO# 0.08 X1000 (0.11-0.59); MONO% 0.5 % (1.7-9.3); MPV 10.8 FL (7.4-10.4); NEUT# 16.11 X1000 (1.4-6.5); NEUT% 96.3 % (42.2-75.2); PLT 180 X1000 (130-400); RBC 4.14 XMIL (4.7-6.1); RDW 17.2 % (11.5-14.5); WBC 16.73 X1000 (4.8-10.8)
[2019-05-20 04:16] LABS: CALCIUM 8.4 mg/dL (8.8-10.2); CREATININE 1.4 mg/dL (0.7-1.2); POTASSIUM 3.8 mmol/L (3.5-5.1)
[2019-05-20 04:21] LABS: HEMOGLOBIN A1C 5.5 % (4.8-6.0)
[2019-05-20] MEDS: CARDIZEM 100 MG/NS 100 MG/100 ML IVPB IV SCH ×3 (04:50→16:48)
[2019-05-20] MEDS: MERREM 500 MG in NS 50 ML IV SCH (05:13)
[2019-05-20] MEDS: ZYVOX 600 MG/D5W 600 MG/300 ML IVPB IV SCH ×2 (05:14→16:54)
[2019-05-20] MEDS ORDERED: NS 50 ML ONE (05:16)
[2019-05-20 05:30] LABS: ALLEN TEST YES; BE -4.5 mmoll (-3.0-3.0); BLOOD TYPE ARTERIAL; HCO3-(ACT) 21.2 mmoll (20.0-26.0); PCO2(98.6) 31 mmHg (35-45); PO2(98.6) 55 mmHg (60-100); SAMPLE BLOOD
[2019-05-20 05:53] LABS: MODALITY NRB
--- NOTE | 2019-05-20 07:27 | Diag Imaging Result Doc PS360 ---
CHEST-PORTABLE - 05/20/2019 INDICATION: pneumonia COMPARISON: 05/19/2019 FINDINGS: Stable CABG changes. Heart size remains normal. There is slight worsening in the density of the extensive bilateral heterogeneous infiltrates. Stable small left basilar pleural effusion. IMPRESSION: Slight worsening in the extensive bilateral infiltrates. Electronically signed by Ruben Stone 05/20/2019 7:24 AM
[2019-05-20 07:29] LABS: BANDS 1 % (0-1); LYMPHS 2 % (21-51); SEGS 97 % (42-75)
[2019-05-20] MEDS: LANOXIN IV SCH (08:14)
--- NOTE | 2019-05-20 08:14 | EKG Report ---
Test Performed on : 05/20/2019 07:47:27 AM Test Reason : afib Blood Pressure : / mmHG Vent. Rate : 128 BPM Atrial Rate : 256 BPM P-R Int : 000 ms QRS Dur : 068 ms QT Int : 276 ms P-R-T Axes : 259 002 223 degrees QTc Int : 402 ms Atrial flutter. with 2:1 AV conduction. Septal infarct , age undetermined ST & T wave abnormality, consider inferior ischemia ST & T wave abnormality, consider anterolateral ischemia Abnormal ECG When compared with ECG of 19-MAY-2019 16:02, Previous ECG has undetermined rhythm, needs review ST less depressed in Inferior leads Confirmed by Roderick HOFFMAN, Khris Slater ([id number]) on 05/21/2019 2:34:09 PM
[2019-05-20] MEDS: DULCOLAX PR SCH (08:15)
[2019-05-20] MEDS: SODIUM CHLORIDE 0.9% INJ SCH (08:15)
[2019-05-20] MEDS: PROTONIX IV SCH (08:15)
[2019-05-20] MEDS ORDERED: LASIX IV ONE (09:19)
[2019-05-20] MEDS: LOVENOX SUBQ SCH (11:32)
[2019-05-20] MEDS ORDERED: MERREM 2 GM in NS 100 ML IV SCH (12:00)
--- NOTE | 2019-05-20 13:14 | INFECTIOUS DISEASE CONSULT REP ---
DATE: 05/20/2019 CONCLUSION: The patient has a bilateral aspiration pneumonia. RECOMMENDATIONS: I agree with treating the patient with Zyvox and meropenem. I have changed the dose of meropenem to 2 grams IV every 12 hours. DISCUSSION: The patient is unable provide a history. The history I did obtain was from the patient's daughter. Approximately 5 days ago, the patient, who lives in a [facility]ci, aspirated. He is currently in the intensive care unit. His CBC shows a white count of 16,730, hemoglobin 10.9, platelet count 180,000. Blood gases show a pH of 7.4, a PO2 of 55, and a pCO2 of 31. The patient's chest x-ray shows bilateral infiltrates. IgG is 733 and IgA is 169, and both of these values are in the normal range. Creatinine is 1.4. GFR is 48. PAST MEDICAL HISTORY/REVIEW OF SYSTEMS: This was unable to be obtained from the patient. The patient's daughter told me that he does have decreased hearing, but his vision is good. He walks with the aid of a walker. That was about all she could tell me about on the review of systems. PREVIOUS HOSPITALIZATIONS AND OPERATIONS: He has had an appendectomy, surgical removal of his uvula, and he has also had coronary artery bypass grafting. MEDICAL DISEASES: Positive for coronary artery disease and dementia. INFECTIOUS DISEASE HISTORY: Positive for pneumonia and urinary tract infection. FAMILY HISTORY: Positive for myocardial infarction and dementia. SOCIAL HISTORY: The patient is a . He lives in a fci. ALLERGIES: He has no known drug allergies. MEDICATIONS: His medications taken at home include the following: Albuterol inhaler, Dulcolax, digoxin, Lexapro, Lopressor, Remeron, Prilosec, and Ditropan. PHYSICAL EXAMINATION: Vital Signs: Temperature is 100 degrees, pulse 131, respirations 44, blood pressure is 111/58. The patient weighs 144 pounds. General: This is an ill-appearing elderly male. He does not seem to be in any acute distress. Head/Eyes/Ears/Nose/Throat: He has decreased hearing, and I was unable to determine how good his vision is. Neck: No meningismus. Lungs: Bilateral rhonchi. Cardiovascular: Heart rate is regular and rapid. Abdomen: Soft and not tender. Neurologic: The patient was lethargic. He had difficulty hearing what I was saying. I did ask him to do a few things such as moving his extremities and answering a question and he did neither. There is no tremor present. Thank you for the consult. cc: Trevon Omalley MD
[2019-05-20] MEDS ORDERED: LANOXIN IV ONE (14:16)
--- NOTE | 2019-05-20 14:57 | CONSULTATION ---
DATE OF CONSULTATION: 05/20/2019 HISTORY OF PRESENT ILLNESS: The patient is admitted with aspiration pneumonia, is a resident of [facility]. History could not be obtained from the patient. History was obtained from the chart. The patient is Do Not Resuscitate level 1. He had not been doing well over the past few weeks and he was noted to have a urinary tract infection. He was brought to the emergency room. Was noted to have a fever of 101, tachycardia, tachypnea, and pneumonia as well. He had nausea and vomiting while he was at the shelter recently. REVIEW OF SYSTEMS: Could not be obtained from the patient. PAST MEDICAL HISTORY: 1. Chronic atrial fibrillation. 2. Coronary artery disease, coronary artery bypass grafting. 3. Dementia. 4. Chronic constipation. 5. Recurrent pneumonia. 6. He is on chronic anticoagulation therapy. 7. History of hearing impairment, status post implants. 8. Appendectomy. SOCIAL HISTORY: He is a resident of [facility]. ALLERGIES: He is not known to be allergic to any medication. MEDICATIONS: Include acetaminophen, IV Cardizem, digoxin 0.125 mg IV, Lovenox, linezolid, meropenem, Protonix. PHYSICAL EXAMINATION: Blood pressure was 100/70. Jugular venous pressure could not be assessed. First and second heart sounds were heard. There was tachycardia noted. Bilateral expiratory crepitations. Abdomen was soft. Central nervous system could not be assessed. ASSESSMENT AND PLAN: Mr. Tim Zuniga is an 89-year-old, gentleman with a history of: 1. Coronary artery disease, coronary artery bypass grafting. 2. Atrial fibrillation. 3. Hypertension. 4. Hyperlipidemia. 5. Was recently admitted with pneumonia. He is admitted with fevers and has pneumonia. From a cardiac standpoint, he has cannot take oral medications at the present time. He is on intravenous Cardizem drip for his atrial fibrillation. In addition, he gets intravenous digoxin 0.125 mg daily. I will give him another dose of digoxin intravenous now. 6. He is anticoagulated with Eliquis as he is not taking oral medications and he is on Lovenox. 7. Aspiration pneumonia is probably driving his heart rate up. I have not made any other changes to his medications. 8. His recent echocardiogram on 03/05/2019 revealed an ejection fraction of 60% with preserved left ventricular systolic function. There was pulmonary arterial hypertension, mild, with a pulmonary artery systolic pressure 55 mmHg. RECOMMENDATIONS: If his heart rate is not controlled with this, we will give him IV Lopressor if required as well. cc: Modesto Hou MD
[2019-05-20] MEDS ORDERED: DULCOLAX PR PRN (16:57)
[2019-05-20] MEDS ORDERED: ZOFRAN IV PRN (17:02)
[2019-05-20] MEDS ORDERED: ATROPINE 1 % OPHTH SOLN SL PRN (17:02)
[2019-05-20] MEDS ORDERED: TYLENOL PR PRN (17:03)
[2019-05-20] MEDS: TRANSDERM-SCOP TD SCH (19:17)
[2019-05-20] MEDS: DUONEB (A & A) INH PRN ×2 (19:25→23:25)
[2019-05-20] MEDS: MORPHINE IV PRN (19:48)
--- NOTE | 2019-05-20 20:20 | PROGRESS NOTE ---
DATE: 05/20/2019 SUBJECTIVE: This morning the patient was noted to be worse. He was noted to be having increased work of breathing, and his O2 saturations were in the upper 80s on nonrebreather mask, and he was noted to be in atrial fibrillation with RVR and tachypneic. OBJECTIVE: Vital Signs: Temperature 98.6, blood pressure 101/55, heart rate 131, respiratory rate 45, O2 saturation 88% on nonrebreather mask. General: This is a chronically ill-appearing elderly male lying in bed. Heart: S1, S2 normal. Irregularly irregular rhythm. Lungs: Coarse breath sounds with crackles bilaterally. Abdomen: Hypoactive bowel sounds. Extremities: No edema, no cyanosis. Neurologic: The patient is lethargic, but will awaken when his name is called. LABS: White blood cell count 16, hemoglobin 10, hematocrit 35, platelets 180. Sodium 145, potassium 3.8, chloride 110. CO2 is 20, BUN 36, creatinine 1.4, glucose 126. ASSESSMENT: 1. Acute hypoxemic respiratory failure. 2. Bilateral lobe pneumonia secondary to aspiration. 3. Atrial fibrillation with rapid ventricular response. 4. Dementia. 5. Dysphagia. 6. Constipation. PLAN: The patient's daughter had a discussion with Suyapa Suarez with palliative care, and she has decided to make the patient comfort measures only. All antibiotics will be discontinued, and the patient will be started on comfort medications. The patient will be transferred to the medical floor and placed in a private room. cc: Joy Stark MD MTDD
[2019-05-21] MEDS: MORPHINE IV PRN ×4 (02:09→16:08)
[2019-05-21] MEDS: DUONEB (A & A) INH PRN (07:59)
[2019-05-21] MEDS: ATIVAN IV PRN ×2 (09:19→14:10)
--- NOTE | 2019-05-21 13:51 | PROGRESS NOTE ---
DATE: 05/21/2019 SUBJECTIVE: The patient is resting comfortably in bed. He is currently on non-rebreather. He received morphine earlier this morning. OBJECTIVE: Vital Signs: Temperature 99.3 degrees, blood pressure 99/53, heart rate 114, respirations 36, O2 saturation 86% on a non-rebreather. General: This is a chronically ill- appearing elderly male, lying in bed in no acute distress. Heart: S1, S2 normal. Tachycardic. Lungs: Coarse breath sounds bilaterally with crackles. Abdomen: Positive bowel sounds. Soft, nontender, nondistended. Extremities: No edema, no cyanosis. Neurologic: The patient is lethargic, but will awaken when his name is called. ASSESSMENT: 1. Acute hypoxemic respiratory failure. 2. Bilateral lobe pneumonia secondary to aspiration. 3. Atrial fibrillation with rapid ventricular response. 4. Dysphagia. 5. Dementia. 6. Constipation. PLAN: Continue with comfort measures. Palliative Care is following. cc: Joy Stark MD
[2019-05-22] MEDS: MORPHINE IV PRN ×2 (04:24→17:22)
[2019-05-22] MEDS: ATIVAN IV PRN (17:21)
--- NOTE | 2019-05-22 20:30 | PROGRESS NOTE ---
DATE: 05/22/2019 SUBJECTIVE: The patient is unresponsive. His family is present at the bedside. OBJECTIVE: Vital Signs: Temperature 99 degrees, blood pressure 115/63, heart rate 97, respirations 18, O2 saturation 90% on non-rebreather. General: This is a comatose male lying in bed in no acute distress. Heart: S1, S2 normal. Tachycardic. Lungs: Equal air entry bilaterally. No wheezing. No rales. Abdomen: Positive bowel sounds. Soft, nontender, nondistended. Extremities: No edema, no cyanosis. Neurologic: The patient is comatose. ASSESSMENT: 1. Acute hypoxemic respiratory failure. 2. Aspiration pneumonia. 3. Atrial fibrillation with rapid ventricular response. 4. Dysphagia. 5. Dementia. 6. Constipation. PLAN: Continue with comfort measures. cc: Joy Stark MD
[2019-05-23] MEDS: MORPHINE IV PRN ×3 (05:11→17:06)
[2019-05-23] MEDS: TRANSDERM-SCOP TD SCH (18:00)
--- NOTE | 2019-05-23 18:03 | PROGRESS NOTE ---
DATE: 05/23/2019 SUBJECTIVE: The patient is currently resting comfortably. No acute events noted overnight. OBJECTIVE: Vital Signs: Temperature 98.6 degrees, blood pressure 127/54, heart rate 88, respirations 32, O2 saturation is 93% on non-rebreather. General: This is a chronically ill- appearing, elderly male, lying in bed in no acute distress. Heart: S1, S2, normal. Lungs: Clear to auscultation bilaterally. Abdomen: Positive bowel sounds. Soft, nontender, nondistended. Extremities: No edema. No cyanosis. Neurologic: The patient is comatose. ASSESSMENT: 1. Acute hypoxemic respiratory failure. 2. Aspiration pneumonia. 3. Atrial fibrillation with rapid ventricular response. 4. Dysphagia. 5. Dementia. 6. Constipation. PLAN: The patient appears to be comfortable. Continue with comfort measures. The patient's family was updated at the bedside this morning. cc: Joy Stark MD
[2019-05-24] MEDS: MORPHINE IV PRN ×4 (03:50→21:49)
--- NOTE | 2019-05-24 18:43 | PROGRESS NOTE ---
DATE: 05/24/2019 SUBJECTIVE: The patient is currently resting comfortably. His family is present at the bedside. He appears to be comfortable. OBJECTIVE: Vital Signs: Temperature 97.7 degrees, blood pressure 134/72, heart rate 60, respirations 15, O2 saturations 100% on non-rebreather. General: This is a chronically ill- appearing, elderly male lying comfortably in bed in no acute distress. Heart: S1, S2. Normal. Lungs: Equal air entry bilaterally. No wheezing. No rales. Abdomen: Positive bowel sounds. Soft, nontender, nondistended. Extremities: No edema. No cyanosis. Neurologic: The patient is comatose. ASSESSMENT: 1. Acute hypoxemic respiratory failure. 2. Aspiration pneumonia. 3. Atrial fibrillation with rapid ventricular response. 4. Dysphagia. 5. Advanced dementia. 6. Constipation. PLAN: The patient appears to be comfortable at this time. We will continue with comfort measures as ordered. The patient's family was updated this morning at the bedside. cc: Joy Stark MD
[2019-05-25] MEDS: MORPHINE IV PRN ×3 (03:13→08:11)
--- NOTE | 2019-05-25 17:24 | PROGRESS NOTE ---
DATE: 05/25/2019 SUBJECTIVE: The patient is currently resting comfortably in bed. No acute events noted overnight. His family is present at the bedside. Occasionally he will open his eyes, but he does not follow commands. OBJECTIVE: Vital Signs: Temperature 98.2 degrees, blood pressure 133/64, heart rate 97, respirations 20, O2 saturation 99% on a non-rebreather. General: This is a chronically ill- appearing elderly male lying comfortably in bed in no acute distress. Heart: S1, S2 normal. Tachycardic. Lungs: Clear to auscultation bilaterally. No wheezing. No crackles. Abdomen: Positive bowel sounds. Soft, nontender, nondistended. Extremities: Warm to touch. No edema. ASSESSMENT: 1. Acute hypoxemic respiratory failure. 2. Aspiration pneumonia. 3. Atrial fibrillation with rapid ventricular response. 4. Dysphagia. 5. Advanced dementia. 6. Constipation. PLAN: The patient currently does not qualify for [facility] as per Suyapa Codseda with palliative care. The patient cannot return to SNF due to amount of oxygen that he is requiring at this time. We will continue with comfort measures. cc: Joy Stark MD MTDD
[2019-05-26] MEDS: MORPHINE IV PRN (01:50)
--- NOTE | 2019-05-26 10:25 | PROGRESS NOTE ---
DATE: 05/26/2019 INTERVAL HISTORY: No acute events overnight. The patient was comfortable. The patient's son-in- law, brother and sister are at bedside. They think patient appears comfortable. SUBJECTIVE: Mr. Zuniga opens his eyes to strong verbal stimuli. He resists flashing of light in his eyes. Does not appear in any distress. He does not verbalize anything at the moment. VITALS: His temperature was 99.5 degrees yesterday, pulse of 109, respiratory rate of 22. His blood pressure was 118/61. He was saturating 94% on 100% non-rebreather mask. PHYSICAL EXAMINATION: HEENT: His pupils are bilaterally equal reacting to light. Oral cavity was dry. He has a scopolamine patch behind his left ear. Lungs: Air entry bilaterally equal. No wheeze or rhonchi. He has crackles bilateral in the inframammary region. Cardiovascular: S1, S2 normal. Appears regular. No murmur, rub, or gallop. Abdomen: Soft. On deep palpation, he winched. He does not have bowel sounds. He has a urine catheter. Extremity: He does not have any lower extremity edema. He withdraws to tickling on the plantar surface of his feet. He does appear to have some tenia cruris. LABS: No labs. ASSESSMENT AND PLAN: 1. Septic shock and acute hypoxic respiratory failure due to bilateral aspiration pneumonia. 2. History of coronary artery disease requiring CABG in the past. 3. Atrial fibrillation with rapid ventricular rate. PLAN: The patient has had significant functional decline as per the records and he also has advanced dementia and family had decided to make the patient comfort measures only. I will keep him on intravenous morphine and intravenous lorazepam as needed to address his pain and anxiety as necessary. I will keep him on scopolamine patch and atropine to address his secretions. The patient does not qualify for [facility] as per the records and he could not return to [facility] due to amount of oxygen that he was requiring. We will continue comfort measures only. Plan of care discussed with the patient's son-in-law and other family members at bedside. Their questions, concerns have been addressed. I offered them to let the nurse know at any time if any 1 of them had any questions. They understood it. cc: Leo Strauss MD
[2019-05-26 11:42] VITALS: BP 110/58
[2019-05-26] MEDS: TRANSDERM-SCOP TD SCH (17:56)
--- NOTE | 2019-05-27 21:35 | DISCHARGE SUMMARY ---
ADMISSION DATE: 05/18/2019 DISCHARGE DATE: 05/26/2019 DATE OF : 05/26/2019 TIME OF : 11:12 p.m. CAUSE OF : 1. Acute hypoxic respiratory failure. 2. Aspiration pneumonia. 3. Septic shock. HOSPITAL COURSE SUMMARY: Mr. Burns is an 89-year-old man who had initially presented to the hospital on 05/18/2019 with chief complaints of aspiration, fever, and cough. In the emergency room he was found to be hypoxic, tachycardic, and hypotensive. He was admitted to ICU for septic shock due to bilateral aspiration pneumonia and was started on broad-spectrum intravenous antibiotics as well as oxygenation. His condition did not improve despite requiring intravenous vasopressors and, considering his slow progressive decline all over last several weeks, family decided to make him DNR level 1. Comfort measures were started according to the family's request. The patient was comfortable on intravenous antianxiety and opioid medication, and he on May 26. I was not present to pronounce the patient. This happened overnight. Less than 30 minutes were spent in preparing this discharge summary. cc: Leo Strauss MD
== END 2019-05-26 23:12 | disposition expired | DRG 871 ==
LOC: ED 00:33 → EDIPHOLD 06:28 → SUATTDRO 06:28 → ICU 12:02 → 1N 05-21 16:43
PROVIDERS: ATTEND Internal Medicine